=== PATIENT | male | born 1930 | race Caucasian/White ===

== ENCOUNTER 2016-12-22 03:42 | Emergency (ER) ==
[2016-12-22] MEDS ORDERED: DECADRON 4 MG/ML SDV IM STA (03:51)
[2016-12-22] MEDS ORDERED: TORADOL IM STA (03:51)
--- NOTE | 2016-12-22 03:54 | ED.PDOC ---
General ED Provider: Dr. DARIO GLASGOW Chief Complaint: Extremity Swelling/Pain Stated Complaint: Woke up with left 2,3 rd toe pain and swelling warm to touch. Time Seen by Physician: 03:52 Primary Care Provider: OKSANA HWANG Nursing and Triage Documentation Reviewed and Agree: Yes Musculoskeletal Complaint Exam - Ankle/Foot Complaint/Exam Location of Injury: Reports: Left, Foot, Toe #1, Toe #2 Mechanism of Injury: Reports: No known trauma Symptoms Are: Reports: Still present Onset of Pain: Reports: Hours Initial Severity: Moderate Current Severity: Moderate Location: Reports: Discrete Character: Reports: Aching, Throbbing Alleviating: Reports: None Aggravating: Reports: Movement, Weight bearing Associated Signs and Symptoms: Reports: Swelling, Redness. Denies: Bruising, Fever, Weakness, Numbness, Tingling Gout Risk Factors: Reports: Male, HTN, Hyperlipidemia Related Surgical History: Reports: None Lower Extremity Findings: Present: Swelling, Warmth, Tenderness Tenderness: Present: Metatarsals, Digits Differential Diagnosis: Closed Fracture, Gout Review of Systems - Review Of Systems Constitutional: Reports: No symptoms Eyes: Reports: No symptoms Ears, Nose, Mouth, Throat: Reports: No symptoms Respiratory: Reports: No symptoms Cardiac: Reports: No symptoms GI: Reports: No symptoms : Reports: No symptoms Musculoskeletal: Reports: Gout, Joint pain, Joint swelling Skin: Reports: No symptoms Neurological: Reports: No symptoms Endocrine: Reports: No symptoms Hematologic/Lymphatic: Reports: No symptoms All Other Systems: Reviewed and Negative Past Medical History - Past Medical History Previously Healthy: Yes Endocrine: Reports: DM 2 Cardiovascular: Reports: None Respiratory: Reports: None Hematological: Reports: None Gastrointestinal: Reports: None Genitourinary: Reports: None Neuro/Psych: Reports: None Musculoskeletal: Reports: None Cancer: Reports: None - Surgical History General Surgical History: Reports: Unknown - Family History Family History: Reports: Unknown - Social History Smoking Status: Former smoker Hx Substance Use: No Alcohol Screening: None Physical Exam - Physical Exam Appearance: Well-appearing, No pain distress, Well-nourished Eyes: ELIOT, EOMI, Conjunctiva clear ENT: Ears normal, Nose normal, Oropharynx normal Respiratory: Airway patent, Breath sounds clear, Breath sounds equal, Respirations nonlabored Cardiovascular: RRR, Pulses normal, No rub, No murmur GI/: Soft, Nontender, No masses, Bowel sounds normal, No Organomegaly Musculoskeletal: Normal strength, ROM intact, No calf tenderness, Edema (left 2, 3 toe, war, swollen.) Skin: Warm, Dry, Normal color Neurological: Sensation intact, Motor intact, Reflexes intact, Cranial nerves intact, Alert, Oriented Psychiatric: Affect appropriate, Mood appropriate Interpretation - Radiology Interpretation Radiology Interpretation By: Radiologist Radiology Results: Negative Critical Care Note - Critical Care Note Total Time (mins): 0 Course - Course Hematology/Chemistry: 12/22/16 04:25 12/22/16 04:25 Orders, Labs, Meds: Lab Review 12/22/16 04:25 WBC 5.66 RBC 4.12 L Hgb 11.8 L Hct 36.2 L MCV 87.9 MCH 28.6 MCHC 32.6 RDW Coeff of Michael 13.5 Plt Count 239 Immature Gran % (Auto) 0.2 Neut % (Auto) 60.8 Lymph % (Auto) 22.1 [place] % (Auto) 9.9 Eos % (Auto) 6.5 Baso % (Auto) 0.5 Immature Gran # (Auto) 0.0 Neut # 3.4 Lymph # 1.3 [place] # 0.6 Eos # 0.4 Baso # 0.0 Sodium 138 Potassium 4.7 Chloride 103 Carbon Dioxide 27 Anion Gap 12.7 BUN 29 H Creatinine 1.69 H Estimated GFR (MDRD) 39.00 BUN/Creatinine Ratio 17.15 Glucose 187 H Uric Acid 8.7 H Calcium 9.5 Total Bilirubin 0.54 AST 19 ALT 9 L Alkaline Phosphatase 80 Total Protein 6.5 Albumin 3.5 Globulin 3.0 Albumin/Globulin Ratio 1.17 Orders Category Date Time Status CBC W/ AUTO DIFF Stat LAB 12/22/16 04:25 Completed COMPREHENSIVE METABOLIC PANEL Stat LAB 12/22/16 04:25 Completed URIC ACID Stat LAB 12/22/16 04:25 Completed Colchicine [Colcrys] MEDS 12/22/16 03:56 Discontinued 1.2 mg PO ONCE STA Dexamethasone 4 mg/ml Inj [Decadron 4 mg/ml Sdv] MEDS 12/22/16 03:51 Discontinued 4 mg IM ONCE STA Ketorolac Tromethamine [Toradol] MEDS 12/22/16 03:51 Discontinued 60 mg IM ONCE STA FOOT, LEFT 3 VIEWS Stat RADS 12/22/16 03:51 Completed Medications Discontinued Medications Generic Name Dose Route Start Last Admin Trade Name Angelica PRN Reason Stop Dose Admin Colchicine 1.2 mg 12/22/16 03:56 12/22/16 04:29 Colcrys PO 12/22/16 03:57 1.2 mg ONCE STA Administration Dexamethasone Sodium Phosphate 4 mg 12/22/16 03:51 12/22/16 04:33 Decadron 4 Mg/Ml Sdv IM 12/22/16 03:52 4 mg ONCE STA Administration Ketorolac Tromethamine 60 mg 12/22/16 03:51 12/22/16 04:33 Toradol IM 12/22/16 03:52 60 mg ONCE STA Administration Vital Signs: Temp Pulse Resp BP Pulse Ox 12/22/16 03:43 98.6 F 78 18 172/70 H 98 Departure - Departure Time of Disposition: 05:51 Disposition: HOME SELF-CARE Discharge Problem: Gout attack Qualifiers: Gout site: foot Gout etiology: unspecified cause Laterality: left Qualifier Code: (M10.9) Gout, unspecified Instructions: Gout (ED) Condition: Stable Pt referred to PMD for follow-up: Yes Additional Instructions: rest hot pack' Prescriptions: Colchicine [Colcrys] 0.6 mg PO DAILY #20 tablet Prednisone 10 mg PO BIDWM #14 tablet Allergies/Adverse Reactions: Allergies clindamycin HCl [From Cleocin] Adverse Reaction (Intermediate, Verified 03:56) Home Medications: Ambulatory Orders Calcium Carbonate/Vitamin D3 [Calcium 600 + Vit D Tablet] 1 each PO BID Cyanocobalamin (Vitamin B-12) [Vitamin B-12] 1,000 mcg IM MONTHLY 03/30/13 Furosemide [Lasix] 40 mg PO DAILY 03/30/13 Insulin Glargine,Hum.rec.anlog [Lantus] 14 unit SQ BEDTIME 03/30/13 Levothyroxine Sodium [Synthroid] 200 mcg PO DAILY 03/30/13 Lisinopril [Zestril] 40 mg PO DAILY 03/30/13 Colchicine [Colcrys] 0.6 mg PO DAILY #20 tablet 12/22/16 Diphenhydramine HCl [Benadryl] 50 mg PO Q6H PRN 12/22/16 Gabapentin 200 mg PO DAILY 03/22/17 Gabapentin 300 mg PO BEDTIME 12/22/16 Hydroxyzine HCl [Atarax] 25 mg PO BID PRN 12/22/16 Insulin Glargine,Hum.rec.anlog [Lantus] 14 unit SUBCUT BEDTIME 12/22/16 Insulin Regular, Human [Humulin R] 1 unit SQ DIRECTED PRN 12/22/16 Oxycodone-Acetaminophe 7.5-325 [Percocet 7.5-325] 1 tab PO Q8H PRN 12/22/16 Prednisone 10 mg PO BIDWM #14 tablet 12/22/16 Zolpidem Tartrate [Ambien] 5 mg PO BEDTIME PRN 12/22/16 Disposition Discussed With: Patient
[2016-12-22 03:56] VITALS: BP 172/70; TEMP 98.6; BMI 23.8
[2016-12-22] MEDS ORDERED: COLCRYS PO STA (03:56)
[2016-12-22 04:26] LABS: BASOPHILS % (AUTO) 0.5 % (0.0-3.0); EOSINOPHILS # (AUTO) 0.4 K/ul (0.0-0.7); EOSINOPHILS % (AUTO) 6.5 % (0.0-7.0); HEMATOCRIT 36.2 % (42.0-52.0); HEMOGLOBIN 11.8 g/dl (14.0-18.0); IMMATURE GRANULOCYTE % (AUTO) 0.2 % (0.0-5.0); LYMPHOCYTES # (AUTO) 1.3 K/uL (0.60-3.4); LYMPHOCYTES % (AUTO) 22.1 (10.0-50.0); MEAN CORPUSCULAR HEMOGLOBIN 28.6 pg (27.0-31.0); MEAN CORPUSCULAR HGB CONC 32.6 (31.8-35.4); MEAN CORPUSCULAR VOLUME 87.9 fl (80.0-94.0); MONOCYTES # (AUTO) 0.6 K/uL (0.4-2.0); MONOCYTES % (AUTO) 9.9 (0-10); NEUTROPHILS # (AUTO) 3.4 K/ul (2.0-6.9); NEUTROPHILS % (AUTO) 60.8; PLATELET COUNT 239 10^3/uL (140-440); RED BLOOD COUNT 4.12 10^6/ul (4.70-6.10); WHITE BLOOD COUNT 5.66 K/ul (4.2-10.2)
--- NOTE | 2016-12-22 04:37 | DI ---
Exam: Left foot three-view History: Second and third digit pain and swelling Findings / impression: No acute bony or articular abnormalities are seen. Mild interphalangeal oste oarthritic change. Mild spurring on the plantar surface of the calcaneus. Atherosclerotic vascular calcifications are present.
[2016-12-22 04:46] LABS: ALBUMIN 3.5 g/dL (3.4-5.0); ALBUMIN/GLOBULIN RATIO 1.17; ANION GAP 12.7; BILIRUBIN,TOTAL 0.54 mg/dL (0.00-1.20); BUN/CREATININE RATIO 17.15; CALCIUM 9.5 mg/dL (8.2-10.2); CREATININE 1.69 mg/dL (0.60-1.10); POTASSIUM 4.7 mmol/L (3.5-5.1); TOTAL PROTEIN 6.5 g/dL (5.8-8.1); URIC ACID 8.7 mg/dL (2.6-7.2)
== END 2016-12-22 05:55 | disposition home or self-care (01) ==
LOC: ED 03:42
DX: M10.9 Gout, unspecified (principal); I10 Essential (primary) hypertension; E78.5 Hyperlipidemia, unspecified; E11.9 Type 2 diabetes mellitus without complications; Z79.899 Other long term (current) drug therapy
CPT/HCPCS: 36415; 80053; 84550; 85025; 96372; 99283

== ENCOUNTER 2017-09-11 02:00 | Emergency (ER) ==
[2017-09-11 02:04] VITALS: BMI 23.0
[2017-09-11 02:37] LABS: BASOPHILS % (AUTO) 0.7 % (0.0-3.0); EOSINOPHILS # (AUTO) 0.1 K/ul (0.0-0.7); HEMATOCRIT 34.3 % (42.0-52.0); HEMOGLOBIN 11.4 g/dl (14.0-18.0); IMMATURE GRANULOCYTE % (AUTO) 0.3 % (0.0-5.0); LYMPHOCYTES # (AUTO) 0.8 K/uL (0.60-3.4); LYMPHOCYTES % (AUTO) 12.5 (10.0-50.0); MEAN CORPUSCULAR HEMOGLOBIN 29.3 pg (27.0-31.0); MEAN CORPUSCULAR HGB CONC 33.2 (31.8-35.4); MEAN CORPUSCULAR VOLUME 88.2 fl (80.0-94.0); MONOCYTES # (AUTO) 0.4 K/uL (0.4-2.0); MONOCYTES % (AUTO) 6.7 (0-10); NEUTROPHILS # (AUTO) 4.8 K/ul (2.0-6.9); NEUTROPHILS % (AUTO) 78.8; PLATELET COUNT 248 10^3/uL (140-440); RED BLOOD COUNT 3.89 10^6/ul (4.70-6.10); WHITE BLOOD COUNT 6.08 K/ul (4.2-10.2)
[2017-09-11 02:44] VITALS: BP 141/76; TEMP 97.3
[2017-09-11 02:51] LABS: BILIRUBIN,URINE Negative (NEGATIVE); KETONES,URINE Trace (NEGATIVE); LEUKOCYTE ESTERASE ,URINE Negative (NEGATIVE); NITRITE,URINE Negative (NEGATIVE); PROTEIN,URINE Negative (NEGATIVE); URINE, BLOOD Negative (NEGATIVE)
[2017-09-11 02:58] LABS: ADD URINE MICROSCOPIC NO
--- NOTE | 2017-09-11 03:31 | DI ---
EXAM: Portable chest HISTORY: Change mental status COMPARISON: Two-view chest 03/22/2012 FINDINGS: Postoperative fusion changes are seen within the lower cervical spine. The cardiomediasti nal silhouette is stable.. There are benign granulomatous changes. There is stable elevation of the right hemidiaphragm.. There is a tubular structure overlying the right lower hemithorax. Correlate with history. There is moderate sized hiatal hernia IMPRESSION: Benign granulomatous changes. Stable elevation right hemidiaphragm.. Hiatal hernia.
--- NOTE | 2017-09-11 03:35 | CT ---
EXAM: CT scan brain without contrast HISTORY: Confusion COMPARISON: CT scan brain 08/13/2015 FINDINGS: Contiguous axial images obtained from the skull base to the convexities without contrast u tilizing 5-mm collimation. Sagittal and coronal reconstructions were imaged and reviewed.. The vent ricles and CSF spaces are prominent compatible with age appropriate atrophy. There is moderate periv entricular hypodensity noted compatible with chronic microvascular disease. Atherosclerotic changes are seen involving the bilateral vertebral and cavernous internal carotid arteries. Several air cell s are opacified anteriorly within the ethmoid sinuses. The mastoid air cells are clear. IMPRESSION: Age appropriate atrophy with chronic microvascular disease. ASVD.
[2017-09-11 03:38] LABS: ALBUMIN 3.5 g/dL (3.4-5.0); ALBUMIN/GLOBULIN RATIO 1.13; ANION GAP 16.5; BILIRUBIN,TOTAL 0.35 mg/dL (0.00-1.20); BUN/CREATININE RATIO 16.47; CALCIUM 9.5 mg/dL (8.2-10.2); CREATININE 1.7 mg/dL (0.60-1.10); POTASSIUM 4.5 mmol/L (3.5-5.1); TOTAL PROTEIN 6.6 g/dL (5.8-8.1)
[2017-09-11 03:46] LABS: ERYTHROCYTE SEDIMENTATION RATE 13 mm/hr (0-15); ESR INTERNAL QC INTERNAL QC VALID
[2017-09-11 04:00] LABS: TROPONIN I 0.022 ng/ml (0.0000-0.4000)
[2017-09-11 04:26] LABS: CREATINE KINASE MB 2.6 ng/ml (0.0-3.6)
--- NOTE | 2017-09-11 04:30 | ED.PDOC ---
General ED Provider: Dr. JEFF ROWE-ER Chief Complaint: Hypoglycemia Stated Complaint: his bs dropped to 64--he got confused and sweaty Time Seen by Physician: 02:05 Mode of Arrival: Walk-In Information Source: Patient, Family Exam Limitations: No limitations Primary Care Provider: OKSANA HWANG Nursing and Triage Documentation Reviewed and Agree: Yes Endocrine Complaint Exam - Diabetic Complication Complaint/Exam Onset/Duration: 30 min Symptoms Are: Still present Timing: Constant Initial Severity: Mild Current Severity: Moderate Character: Alert, Confused, Lethargic Aggravating: Reports: Medication change, Change in activity level Alleviating: Reports: None Associated Signs and Symptoms: Reports: Diaphoresis. Denies: Decreased LOC, Polydipsia, Polyuria, Polyphagia, Weight loss, Abdominal pain, Nausea, Vomiting , Fever, Fruity breath Related History: Reports: DM 2, Insulin requiring Cardiac Risk Factors: Reports: DM CVA Risk Factors: Reports: DM Serious Bacterial Infection Risk Factors: Reports: None Acetone on Breath: No Dry Mucous Membranes: No Kussmaul Respirations: No Meningeal Signs: Yes Focal Weakness: None Focal Sensory Loss: None Gait: Normal Nystagmus Present: No Gag Reflex Present: Yes Finger to Nose: Normal Romberg Test Positive: No Babinski Sign: Negative Right, Negative Left Heel to Toe Normal: Yes Differential Diagnoses: Hypoglycemia Quality Indicator For Non-Traumatic Chest Pain/Syncope: EKG Performed Review of Systems - Review Of Systems Constitutional: Reports: Diaphoresis Eyes: Reports: No symptoms Ears, Nose, Mouth, Throat: Reports: No symptoms Respiratory: Reports: No symptoms Cardiac: Reports: No symptoms GI: Reports: No symptoms : Reports: No symptoms Musculoskeletal: Reports: No symptoms Skin: Reports: No symptoms Neurological: Reports: No symptoms Endocrine: Reports: No symptoms Hematologic/Lymphatic: Reports: No symptoms All Other Systems: Reviewed and Negative Past Medical History - Past Medical History Previously Healthy: Yes Endocrine: Reports: DM 2 Cardiovascular: Reports: None Respiratory: Reports: None Hematological: Reports: None Gastrointestinal: Reports: None Genitourinary: Reports: None Neuro/Psych: Reports: None Musculoskeletal: Reports: None Cancer: Reports: None - Surgical History General Surgical History: Reports: Unknown - Family History Family History: Reports: Unknown - Social History Smoking Status: Former smoker Hx Substance Use: No Alcohol Screening: None Lives: With family - Immunizations Tetanus Shot up to Date: Yes Physical Exam - Physical Exam Appearance: Well-appearing, No pain distress, Well-nourished Eyes: ELIOT ENT: Ears normal, Nose normal, Oropharynx normal Neck: Supple Respiratory: Airway patent, Breath sounds clear, Breath sounds equal, Respirations nonlabored Cardiovascular: RRR GI/: Soft, Nontender, No masses, Bowel sounds normal, No Organomegaly Musculoskeletal: Normal strength, ROM intact, No edema, No calf tenderness Skin: Warm, Dry, Normal color Neurological: Sensation intact, Motor intact, Reflexes intact, Cranial nerves intact, Alert, Oriented Psychiatric: Affect appropriate, Mood appropriate Interpretation - Radiology Interpretation Radiology Interpretation By: Radiologist Radiology Results: Negative Exam Interpreted: CT Scan - EKG Interpretation Time of EKG #1: 04:30 Rate: Normal Rhythm: Sinus Ectopy: None [place]: NL ST Segment: Normal Re-Evaluation - Re-Evaluation Time of Re-Evaluation: 04:30 Status: Improved Vital Signs Stable: Yes Pain Level: 0 Appearance: NAD Lungs: Clear Skin: Warm and Dry Neuro: Alert and Oriented X3 CV: RRR Critical Care Note - Critical Care Note Total Time (mins): 0 Course - Course Hematology/Chemistry: 09/11/17 02:30 09/11/17 02:30 Orders, Labs, Meds: Lab Review 09/11/17 09/11/17 09/11/17 02:30 02:30 02:30 WBC 6.08 RBC 3.89 L Hgb 11.4 L Hct 34.3 L MCV 88.2 MCH 29.3 MCHC 33.2 RDW Coeff of Michael 14.0 Plt Count 248 Immature Gran % (Auto) 0.3 Neut % (Auto) 78.8 Lymph % (Auto) 12.5 [place] % (Auto) 6.7 Eos % (Auto) 1.0 Baso % (Auto) 0.7 Immature Gran # (Auto) 0.0 Neut # 4.8 Lymph # 0.8 [place] # 0.4 Eos # 0.1 Baso # 0.0 ESR 13 Sodium 138 Potassium 4.5 Chloride 101 Carbon Dioxide 25 Anion Gap 16.5 BUN 28 H Creatinine 1.70 H Estimated GFR (MDRD) 38.00 BUN/Creatinine Ratio 16.47 Glucose 187 H Calcium 9.5 Total Bilirubin 0.35 AST 24 ALT 15 Alkaline Phosphatase 72 Total Creatine Kinase 124 CK-MB (CK-2) 2.6 CK-MB (CK-2) % 2.63417 Troponin I 0.0220 Total Protein 6.6 Albumin 3.5 Globulin 3.1 Albumin/Globulin Ratio 1.13 TSH 1.520 Free T4 1.34 H Urine Color Urine Clarity Urine pH Ur Specific [place] Urine Protein Urine Glucose (UA) Urine Ketones Urine Blood Urine Nitrite Urine Bilirubin Urine Urobilinogen Ur Leukocyte Esterase 09/11/17 02:37 WBC RBC Hgb Hct MCV MCH MCHC RDW Coeff of Michael Plt Count Immature Gran % (Auto) Neut % (Auto) Lymph % (Auto) [place] % (Auto) Eos % (Auto) Baso % (Auto) Immature Gran # (Auto) Neut # Lymph # [place] # Eos # Baso # ESR Sodium Potassium Chloride Carbon Dioxide Anion Gap BUN Creatinine Estimated GFR (MDRD) BUN/Creatinine Ratio Glucose Calcium Total Bilirubin AST ALT Alkaline Phosphatase Total Creatine Kinase CK-MB (CK-2) CK-MB (CK-2) % Troponin I Total Protein Albumin Globulin Albumin/Globulin Ratio TSH Free T4 Urine Color Yellow Urine Clarity Clear Urine pH 6.0 Ur Specific [place] 1.015 Urine Protein Negative Urine Glucose (UA) Negative Urine Ketones Trace Urine Blood Negative Urine Nitrite Negative Urine Bilirubin Negative Urine Urobilinogen 0.2 Ur Leukocyte Esterase Negative Orders Category Date Time Status EKG-(ED ONLY) Stat CARDIO 09/11/17 02:18 Ordered Trenching Machine Operator [ED RN EMERGENCY ROOM APPLIED] .ONCE EMERGENCY 09/11/17 02:20 Active CBC W/ AUTO DIFF Stat LAB 09/11/17 02:30 Completed COMPREHENSIVE METABOLIC PANEL Stat LAB 09/11/17 02:30 Completed CREATINE KINASE Stat LAB 09/11/17 02:30 Completed ESR Stat LAB 09/11/17 02:30 Completed FREE T4 (FREE THYROXINE) Stat LAB 09/11/17 02:30 Completed THYROID STIMULATING HORMONE Stat LAB 09/11/17 02:30 Completed TROPONIN I Stat LAB 09/11/17 02:30 Completed URINALYSIS C & S IF INDICATED Stat LAB 09/11/17 02:[address] HEAD W/O CONTRAST Stat RADS 09/11/17 02:19 Completed CXR [CHEST, 1V AP ONLY] Stat RADS 09/11/17 02:19 Completed Vital Signs: Temp Pulse Resp BP Pulse Ox 09/11/17 02:43 97.3 F L 82 20 141/76 H 97 09/11/17 02:00 97.1 F L 79 13 178/98 H 98 Departure - Departure Time of Disposition: 04:30 Disposition: HOME SELF-CARE Discharge Problem: Hypoglycemia Instructions: Hypoglycemia in a Person with Diabetes (ED) Condition: Good Pt referred to PMD for follow-up: Yes Additional Instructions: f/u with your pcp regarding tx of dm Allergies/Adverse Reactions: Allergies clindamycin HCl [From Cleocin] Adverse Reaction (Intermediate, Verified 03:56) Home Medications: Ambulatory Orders Calcium Carbonate/Vitamin D3 [Calcium 600 + Vit D Tablet] 1 each PO BID Cyanocobalamin (Vitamin B-12) [Vitamin B-12] 1,000 mcg IM MONTHLY 03/30/13 Furosemide [Lasix] 40 mg PO DAILY 03/30/13 Insulin Glargine,Hum.rec.anlog [Lantus] 14 unit SQ BEDTIME 03/30/13 Levothyroxine Sodium [Synthroid] 200 mcg PO DAILY 03/30/13 Lisinopril [Zestril] 40 mg PO DAILY 03/30/13 Colchicine [Colcrys] 0.6 mg PO DAILY #20 tablet 12/22/16 Diphenhydramine HCl [Benadryl] 50 mg PO Q6H PRN 12/22/16 Gabapentin 200 mg PO DAILY 12/22/16 Gabapentin 300 mg PO BEDTIME 12/22/16 Hydroxyzine HCl [Atarax] 25 mg PO BID PRN 12/22/16 Oxycodone-Acetaminophe 7.5-325 [Percocet 7.5-325] 1 tab PO Q8H PRN 12/22/16 Prednisone 10 mg PO BIDWM #14 tablet 12/22/16 Zolpidem Tartrate [Ambien] 5 mg PO BEDTIME PRN 12/22/16 Disposition Discussed With: Patient, Family
== END 2017-09-11 04:35 | disposition home or self-care (01) ==
LOC: ED 02:00
DX: E11.649 Type 2 diabetes mellitus with hypoglycemia without coma (principal); Z79.4 Long term (current) use of insulin; R41.0 Disorientation, unspecified; R61 Generalized hyperhidrosis; Z79.899 Other long term (current) drug therapy
CPT/HCPCS: 36415; 80053; 81001; 82550; 82553; 84439; 84443; 84484; 85025; 85651; 93005; 93010; 99284

== ENCOUNTER 2018-04-25 06:34 | Outpatient (CLI) ==
[2013-03-30 08:55] VITALS: TEMP 98
--- NOTE | 2018-04-25 10:05 | US ---
EXAM: Carotid ultrasound HISTORY: Dizziness COMPARISON: None TECHNIQUE: Carotid ultrasound was performed using small scale, color, and Doppler imaging was perform ed. FINDINGS: Right carotid: There is atherosclerotic plaque in the common carotid and bulb/proximal internal gore tid artery with narrowing visually estimated to be moderate (50 - 69%) Peak systolic velocity measu rement in the right internal carotid artery is 0.9 meters per second. End-diastolic velocity measure ment in the right internal carotid artery is 0.2 meters per second. Right internal to common carotid artery peak systolic velocity ratio is 1.2. Flow in the right vertebral artery is antegrade. Left carotid: There is atherosclerotic plaque in the common carotid and bulb/proximal internal carot id artery. Peak systolic velocity measurement in the left internal carotid artery is 0.8 meters per second. End-diastolic velocity measurement in the left internal carotid artery is 0.1 meters per sec ond. Left internal to common carotid artery peak systolic velocity ratio measures 1.0. Flow in the left vertebral artery is antegrade. IMPRESSION: 1. Right internal carotid: Peak systolic velocity corresponds with mild (less than 50%) stenosis; how ever, the visual estimate of narrowing is estimated to be moderate (50 - 69%). 2. Left internal carotid: Peak systolic velocity corresponds with mild (less than 50%) stenosis.
--- NOTE | 2018-04-25 10:09 | ECHO2D ---
Date of Exam: 04/25/18 Ordering Physician: DR. WESLEY ABAD Room #: OP Reason for Echo: DIZZINESS, SOB M-Mode Normal Adult Results LV Dimensions Normal Adult Results AoV Opening excursions >1.6 >1.6 LVEDD-base- 3.5-5.8 4.9 Ao root dimensions 2.0-3.7 4.2 LVESD-base- 3.1-4.6 L. Atrium dimensions 1.9-3.8 4.3 Post. Wall thickness 0.8-1.1 1.3 IV septum (thickness) 0.7-1.2 1.3 Post. Wall excursion 0.72-1.3 Septal motion NORMAL Systolic motion R. 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 LEFT VENTRICULAR HYPERTROPHY WITH ENLARGED LEFT ATRIAL CAVITY 2. NORMAL LEFT VENTRICLE CONTRACTILITY 3. CALCIFIC MITRAL VALVE ANNULUS 4. NORMAL VALVES 5. 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
== END 2018-04-25 06:35 | disposition home or self-care (01) ==
LOC: CAR 06:34
PROVIDERS: ATTEND Internal Medicine
DX: R06.02 Shortness of breath (principal); R42 Dizziness and giddiness
CPT/HCPCS: 93005; 93010

== ENCOUNTER 2018-08-14 18:42 | Inpatient (IN) | payer OTHER ==
--- NOTE | 2018-08-14 19:05 | ED.PDOC ---
General ED Provider: Dr. CHANTEL KEITA Chief Complaint: Altered Mental Status Stated Complaint: Patient is an 87 year old male who is brought by daughter with hypoglycemia at home. She noticed that he was confused and diaphoretic and fed him some carbohydrate which did not improve his symptoms fast enough so brought him to the ER. His mind is back to base line since being in the ER. He is hard of hearing but able relay his history. Daughter thinks he was active more than usual today but has also been eating less for several weeks. Time Seen by Physician: 19:03 Mode of Arrival: Walk-In Information Source: Patient Exam Limitations: No limitations Primary Care Provider: OKSANA HWANG Nursing and Triage Documentation Reviewed and Agree: Yes Does patient meet sepsis criteria?: No System Inflammatory Response Syndrome: Not Applicable Sepsis Protocol: For patient's 13 years and over: Temp is 96.8 and below OR 101 and greater Pulse >90 BPM Resp >20/minute Acutely Altered Mental Status Are patient's symptoms suggestive of a new infection, such as: -Pneumonia -Skin, Soft Tissue -Endocarditis -UTI -Bone, Joint Infection -Implantable Device -Acute Abdominal Infection -Wound Infection -Meningitis -Blood Stream Catheter Infection -Unknown Endocrine Complaint Exam - Diabetic Complication Complaint/Exam Onset/Duration: 2 hours Symptoms Are: Still present (but better) Timing: Constant Initial Severity: Moderate Current Severity: Mild Character: Confused Aggravating: Reports: Diet change (decreased intake over weeks ), Change in activity level Alleviating: Reports: Food Associated Signs and Symptoms: Reports: Decreased LOC, Diaphoresis. Denies: Polydipsia, Polyuria, Polyphagia, Weight loss, Abdominal pain, Nausea, Vomiting , Fever, Fruity breath Related History: Reports: DM 2, Insulin requiring Cardiac Risk Factors: Reports: DM CVA Risk Factors: Reports: DM Serious Bacterial Infection Risk Factors: Reports: None Related Surgical History: Reports: None Acetone on Breath: No Dry Mucous Membranes: No Kussmaul Respirations: No Glascow Coma Scale (see protocol): 15 Meningeal Signs: No Focal Weakness: None Focal Sensory Loss: None Gait: Normal Nystagmus Present: No Gag Reflex Present: No Finger to Nose: Normal Romberg Test Positive: No Babinski Sign: Negative Right, Negative Left Heel to Toe Normal: No Differential Diagnoses: Hypoglycemia Quality Indicator For Non-Traumatic Chest Pain/Syncope: EKG Performed Review of Systems - Review Of Systems Constitutional: Reports: No symptoms Eyes: Reports: No symptoms Ears, Nose, Mouth, Throat: Reports: No symptoms Respiratory: Reports: No symptoms Cardiac: Reports: No symptoms GI: Reports: No symptoms : Reports: No symptoms Musculoskeletal: Reports: No symptoms Skin: Reports: No symptoms Neurological: Reports: Anxiety, Other (mild confusion ) Endocrine: Reports: Excessive sweating Hematologic/Lymphatic: Reports: No symptoms All Other Systems: Reviewed and Negative Past Medical History - Past Medical History Previously Healthy: Yes Endocrine: Reports: DM 2, Hypothyroid Cardiovascular: Reports: None Respiratory: Reports: None Hematological: Reports: None Gastrointestinal: Reports: None Genitourinary: Reports: None Neuro/Psych: Reports: None Musculoskeletal: Reports: None Cancer: Reports: None - Surgical History General Surgical History: Reports: Cholecystectomy, Back Surgery (CERVICAL SPINE SURGERY X2) - Family History Family History: Reports: Unknown - Social History Smoking Status: Former smoker Hx Substance Use: No Alcohol Screening: None Physical Exam - Physical Exam Appearance: Well-appearing, No pain distress, Well-nourished Eyes: ELIOT, EOMI, Conjunctiva clear ENT: Ears normal, Nose normal, Oropharynx normal Respiratory: Airway patent, Breath sounds clear, Breath sounds equal, Respirations nonlabored Cardiovascular: RRR, Pulses normal, No rub, No murmur GI/: Soft, Nontender, No masses, Bowel sounds normal, No Organomegaly Musculoskeletal: Normal strength, ROM intact, No edema, No calf tenderness Skin: Warm, Dry, Normal color Neurological: Sensation intact, Motor intact, Reflexes intact, Cranial nerves intact, Alert, Oriented Psychiatric: Affect appropriate, Mood appropriate Interpretation - Radiology Interpretation Radiology Interpretation By: Radiologist Radiology Results: No acute changes Exam Interpreted: CT Scan - EKG Interpretation Rate: Normal Rhythm: Sinus Ectopy: PACs Re-Evaluation - Re-Evaluation Time of Re-Evaluation: 20:40 Status: Improved (blood glucose improved ) Physician Notification - Case Discussed Physician Notified: Dr Jeffers Time of Notification: 20:15 (Admit to telemetry ) Critical Care Note - Critical Care Note Total Time (mins): 35 Comments: Lengthy discussion reviled that he uses a formula of Blood glucose minus 100, Divided by 20 Plus 6 units of regular. So a blood glucose of 150 would result in ((150-100)/20 ) + 6 = 8 units. Which is very high with an A1 C of 6 and for his age and would cause hypoglycemia. Advised to use a sliding scale when discharged. An example KING DIRK, INSULIN FORMULA Blood glucose Regular Insulin 0-120 0 Units 121-150 2 Units 151-200 4 Units 201-250 6 Units 251-300 8 Units 301-351 10 Units >351 12 units and call your Doctor Lanwilliam every night Give 5 Units only May check your glucose twice a day after one week of stable blood glucose. will be admitted for Hydration at 75mls per hour. Give Kayaxalate to potassium monitor blood glucose. Course - Course Hematology/Chemistry: 08/14/18 19:11 08/14/18 19:11 Orders, Labs, Meds: Lab Review 08/14/18 08/14/18 08/14/18 19:02 19:02 19:02 WBC RBC Hgb Hct MCV MCH MCHC RDW Coeff of Michael Plt Count Immature Gran % (Auto) Neut % (Auto) Lymph % (Auto) [place] % (Auto) Eos % (Auto) Baso % (Auto) Immature Gran # (Auto) Neut # (Auto) Lymph # (Auto) [place] # (Auto) Eos # (Auto) Baso # (Auto) Sodium Potassium Chloride Carbon Dioxide Anion Gap BUN Creatinine Estimated GFR (MDRD) BUN/Creatinine Ratio Glucose Hemoglobin A1c 6.13 H Calcium Total Bilirubin AST ALT Alkaline Phosphatase Total Creatine Kinase CK-MB (CK-2) CK-MB (CK-2) % Troponin I Total Protein Albumin Globulin Albumin/Globulin Ratio TSH 5.520 H Free T4 1.56 08/14/18 08/14/18 08/14/18 19:11 19:11 19:11 WBC 8.40 RBC 3.83 L Hgb 10.9 L Hct 33.2 L MCV 86.7 MCH 28.5 MCHC 32.8 RDW Coeff of Michael 13.5 Plt Count 286 Immature Gran % (Auto) 0.2 Neut % (Auto) 73.2 Lymph % (Auto) 14.3 [place] % (Auto) 9.8 Eos % (Auto) 2.0 Baso % (Auto) 0.5 Immature Gran # (Auto) 0.0 Neut # (Auto) 6.2 Lymph # (Auto) 1.2 [place] # (Auto) 0.8 Eos # (Auto) 0.2 Baso # (Auto) 0.0 Sodium 134.9 L Potassium 5.57 H Chloride 96.4 L Carbon Dioxide 32.1 H Anion Gap 11.97 BUN 48.3 H Creatinine 2.54 H Estimated GFR (MDRD) 24.00 BUN/Creatinine Ratio 19.01 Glucose 106.8 H Hemoglobin A1c Calcium 9.50 Total Bilirubin 0.31 AST 35.1 ALT 16.8 Alkaline Phosphatase 76.8 Total Creatine Kinase 172.8 H CK-MB (CK-2) 3.570 H CK-MB (CK-2) % 2.0600 Troponin I 0.078 Total Protein 7.13 Albumin 4.09 Globulin 3.04 Albumin/Globulin Ratio 1.34 TSH Free T4 Orders Category Date Time Status EKG-(ED ONLY) Stat CARDIO 08/14/18 19:10 Completed ACCUCHECK (ED) [ED ACCUCHECK ASSESSMENT] .ONCE EMERGENCY 08/14/18 19:02 Active CBC W/ AUTO DIFF Stat LAB 08/14/18 19:11 Completed COMPREHENSIVE METABOLIC PANEL Stat LAB 08/14/18 19:11 Completed CREATINE KINASE Stat LAB 08/14/18 19:11 Completed FREE T4 (FREE THYROXINE) Stat LAB 08/14/18 19:02 Completed HEMOGLOBIN A1C Stat LAB 08/14/18 19:02 Completed THYROID STIMULATING HORMONE Stat LAB 08/14/18 19:02 Completed TROPONIN I Stat LAB 08/14/18 19:11 Completed UA [URINALYSIS C & S IF INDICATED] Stat LAB 08/14/18 19:[address] HEAD W/O CONTRAST Stat RADS 08/14/18 19:10 Completed Medications Generic Name Dose Route Start Last Admin Trade Name Freq PRN Reason Stop Dose Admin Acetaminophen 650 mg 08/14/18 20:39 Tylenol PO Q4H PRN Fever > 102 Cyanocobalamin 1,000 mcg 08/14/18 21:00 Vitamin B-12 IM MONTHLY SHIN Enoxaparin Sodium 30 mg 08/15/18 09:00 Lovenox SUBCUT DAILY SHIN Gabapentin 500 mg 08/14/18 21:00 Neurontin PO BEDTIME SHIN Gabapentin 200 mg 08/15/18 09:00 Neurontin PO DAILY SHIN Sodium Chloride 1,000 mls @ 75 mls/hr 08/14/18 20:32 Sodium Chloride IV 08/15/18 09:51 BOLUS STA Sodium Chloride 1,000 mls @ 75 mls/hr 08/14/18 21:00 Sodium Chloride IV .[id number] SIHN Insulin Glargine 5 unit 08/14/18 21:00 Lantus SUBCUT BEDTIME SHIN Insulin Human Regular 0 - 15 unit 08/14/18 20:39 Humulin R SUBCUT PRN PRN Hyperglycemica Protocol Non-Formulary Medication 1 each 08/14/18 21:00 Calcium Carbonate/Vitamin D3 [Calcium 600 + Vit D Tablet] PO BID SHIN Non-Formulary Medication 200 mcg 08/15/18 09:00 Levothyroxine Sodium [Synthroid] PO DAILY SHIN Ondansetron HCl 4 mg 08/14/18 20:39 Zofran 4 Mg/2 Ml IVP Q6H PRN Nausea / Vomiting Oxycodone/Acetaminophen 1 tab 08/14/18 20:38 Percocet 7.5-325 PO Q8H PRN severe pain Sodium Chloride 1 syr 08/14/18 20:32 Saline Flush IVF PRN PRN To flush IV Discontinued Medications Generic Name Dose Route Start Last Admin Trade Name Freq PRN Reason Stop Dose Admin Sodium Polystyrene Sulfonate 25 gm 08/14/18 20:29 Kayexalate Susp PO 08/14/18 20:30 ONCE STA Vital Signs: Temp Pulse Resp BP Pulse Ox 08/14/18 18:43 96.3 F L 75 20 161/86 H 97 Departure - Departure Time of Disposition: 20:45 Disposition: HOME SELF-CARE Discharge Problem: Hypoglycemia, Dehydration, Hyperkalemia Acute renal failure (ARF) Qualifiers: Acute renal failure type: unspecified Qualified Code(s): N17.9 - Acute kidney failure, unspecified Condition: Stable Pt referred to PMD for follow-up: Yes IPMP verified?: No Allergies/Adverse Reactions: Allergies clindamycin HCl [From Cleocin] Adverse Reaction (Intermediate, Verified 18:47) Home Medications: Ambulatory Orders Calcium Carbonate/Vitamin D3 [Calcium 600 + Vit D Tablet] 1 each PO BID Cyanocobalamin (Vitamin B-12) [Vitamin B-12] 1,000 mcg IM MONTHLY 03/30/13 Furosemide [Lasix] 40 mg PO DAILY 03/30/13 Insulin Glargine,Hum.rec.anlog [Lantus] 10 unit SQ BEDTIME 03/30/13 Levothyroxine Sodium [Synthroid] 200 mcg PO DAILY 03/30/13 Lisinopril [Zestril] 40 mg PO DAILY 03/30/13 Diphenhydramine HCl [Benadryl] 50 mg PO Q6H PRN 12/22/16 Gabapentin 200 mg PO DAILY 12/22/16 Gabapentin 500 mg PO BEDTIME 12/22/16 Oxycodone-Acetaminophe 7.5-325 [Percocet 7.5-325] 1 tab PO Q8H PRN 12/22/16 Insulin Regular, Human [Novolin R] 0 unit IJ DIRECTED 08/14/18 Disposition Discussed With: Patient, Family
--- NOTE | 2018-08-14 19:33 | CT ---
EXAM: CT scan of the head without contrast HISTORY: Mental status change TECHNIQUE: Imaging of the head was performed without contrast. 5 mm thin axial images and coronal a nd sagittal images were provided for interpretation. Comparison 09/11/2017 CT scan of the head. FINDINGS: The lateral ventricles and cortical sulci are prominent from atrophy. The small-white inte rface appears normal. No acute hemorrhages are seen. There is no mass effect. Basal cisterns are p atent. Patchy low density changes are seen within the supratentorial white matter. IMPRESSION: No acute intracranial abnormalities are seen. Stable appearance of cerebral atrophy.
[2018-08-14] MEDS ORDERED: KAYEXALATE SUSP PO STA (20:29)
[2018-08-14] MEDS ORDERED: SODIUM CHLORIDE 1,000 ML IV STA (20:32)
[2018-08-14] MEDS ORDERED: ZOFRAN 4 MG/2 ML IVP PRN (20:39)
[2018-08-14] MEDS ORDERED: TYLENOL PO PRN (20:39)
[2018-08-14] MEDS ORDERED: SODIUM CHLORIDE 1,000 ML IV SCH (21:00)
[2018-08-14] MEDS ORDERED: NON-FORMULARY MEDICATION (Calcium Carbonate/Vitamin D3 [Calcium 600 + Vit D Tablet] 1 EACH PO SCH (21:00)
[2018-08-14] MEDS ORDERED: NEURONTIN PO SCH (21:00)
[2018-08-14] MEDS ORDERED: VITAMIN B-12 IM SCH (21:00)
[2018-08-14 21:42] VITALS: BMI 23.5
[2018-08-14] MEDS ORDERED: NEURONTIN ONE (22:07)
[2018-08-14] MEDS: LANTUS SUBCUT SCH (22:09)
[2018-08-14] MEDS: PERCOCET 7.5-325 PO PRN (22:11)
[2018-08-15] MEDS: HUMULIN R SUBCUT PRN ×2 (06:19→11:06)
[2018-08-15] MEDS: LOVENOX SUBCUT SCH (08:11)
[2018-08-15] MEDS: SYNTHROID PO SCH (08:12)
[2018-08-15] MEDS: NEURONTIN PO SCH (08:12)
[2018-08-15] MEDS: CALCIUM 500 + VIT D 200 MG TABLET PO SCH ×2 (08:12→21:00)
[2018-08-15] MEDS ORDERED: NON-FORMULARY MEDICATION (Levothyroxine Sodium [Synthroid] 200 MCG) PO SCH (09:00)
[2018-08-15] MEDS: ASPIRIN EC PO SCH (09:26)
[2018-08-15] MEDS: COZAAR PO SCH (09:26)
--- NOTE | 2018-08-15 10:07 | PCM.PROG ---
Attending Provider: ATTENDING PROVIDER: Dr. WESLEY ABAD DATE OF SERVICE: 08/15/18 SUBJECTIVE: This 87 year old WHITE/ M was hospitalized 08/14/18 with hypoglycemia, renal failure and hyperkalemia. The patient is a lot better. The patient's daughters are in the room. REVIEW OF SYSTEMS: CONSTITUTIONAL: No night sweats. No fatigue, malaise, lethargy. No fever or chills. HEENT: Eyes: No visual changes. No eye pain. No eye discharge. ENT: No runny nose. No epistaxis. No sinus pain. No odynophagia. No congestion. RESPIRATORY: No cough, no congestion. No hemoptysis. No shortness of breath. CARDIOVASCULAR: No angina symptoms. No CHF symptoms. No atypical chest pain for CAD. No palpitations. No orthopnea.. GASTROINTESTINAL: No abdominal pain. No nausea or vomiting. No diarrhea or constipation. No hematemesis. No hematochezia. GENITOURINARY: No urgency. No frequency. No dysuria. No hematuria. No obstructive symptoms. No discharge. No pain. No significant abnormal bleeding. MUSCULOSKELETAL: No musculoskeletal pain; no joint swelling. NEUROLOGICAL: Awake, alert, oriented to time, place and person. No headache. No neck pain. No syncope. No seizures. No dizziness. PSYCHIATRIC: Not anxious. No depression. No suicidal thoughts. No homicidal thoughts. SKIN: No rash. No lesions. No wounds. ENDOCRINE: No unexplained weight loss. No weight gain. HEMATOLOGIC/LYMPHATIC: No anemia. No purpura. No petechiae. No prolonged or excessive bleeding. No palpable lymph nodes. PHYSICAL EXAMINATION: GENERAL: The patient is awake, alert and oriented, lying/sitting in bed in no distress. VITAL SIGNS: Temperature 97.9 F, Pulse 80, Respiratory Rate 15, BP 132/63, Pulse Ox 97% HEENT: Head normocephalic, atraumatic. Eyes: Extraocular muscles are intact. Pupils are equal, round and reactive to light and accommodation. Ears: No lesions. Nose appeared normal. Throat: No exudate or erythema. NECK: Supple. No JVD, no carotid bruit. No lymphadenopathy or thyromegaly. LUNGS: Clear to auscultation. Percussion note normal. Chest symmetrical. HEART: S1, S2, no S3. No murmurs. No cyanosis or clubbing. No ascites. Pulses: Dorsalis pedis and posterior tibial pulses +1 to +2 both sides. ABDOMEN: Soft. Non-tender. Bowel sounds active. No CVA tenderness. No mass felt. EXTREMITIES: No edema. Full range of motion of all extremities, equal. NEUROLOGIC: No focal deficit. Cranial nerves II through XII are grossly intact. No headache, no double vision or headache. SKIN: Warm and dry. Intact. Turgor-normal. LYMPHATIC: No palpable lymph nodes/no lymphedema. MUSCULOSKELETAL: Normal joints with no swelling. Muscle tone is normal. LAB REVIEW: 08/15/18 04:10 08/15/18 04:10 08/15/18 04:10: Sodium 130.7 L, Potassium 4.78, Chloride 96.7 L, Carbon Dioxide 28.1, Anion Gap 10.68, BUN 40.2 H, Creatinine 1.77 H D, Estimated GFR (MDRD) 36.00, BUN/Creatinine Ratio 22.71, Glucose 341.4 H D, Calcium 8.53, Total Bilirubin 0.28, AST 25.6, ALT 14.6, Alkaline Phosphatase 64.2, Total Protein 6.01 L, Albumin 3.33 L, Globulin 2.68, Albumin/Globulin Ratio 1.24 08/15/18 04:10: WBC 5.71, RBC 3.26 L, Hgb 9.1 L, Hct 27.8 L, MCV 85.3, MCH 27.9 , MCHC 32.7, RDW Coeff of Michael 13.2, Plt Count 270, Immature Gran % (Auto) 0.4, Neut % (Auto) 69.8, Lymph % (Auto) 16.6, [place] % (Auto) 10.9 H, Eos % (Auto) 1.6 , Baso % (Auto) 0.7, Immature Gran # (Auto) 0.0, Neut # (Auto) 4.0, Lymph # ( Auto) 1.0, [place] # (Auto) 0.6, Eos # (Auto) 0.1, Baso # (Auto) 0.0 08/14/18 21:15: Urine Color Yellow, Urine Clarity Clear, Urine pH 6.0, Ur Specific Corinne 1.010, Urine Protein Negative, Urine Glucose (UA) Negative, Urine Ketones Negative, Urine Blood Negative, Urine Nitrite Negative, Urine Bilirubin Negative, Urine Urobilinogen 0.2, Ur Leukocyte Esterase Negative 08/14/18 20:29: Puncture Site Rrad, O2 Saturation 99.0, ABG pH 7.485 H, ABG pCO2 36.7, ABG pO2 113.0 H, ABG HCO3 27.6 H, ABG Total CO2 29 H, ABG Base Excess 4 H, Ab Test +, FiO2 % 21.0 08/14/18 19:11: Total Creatine Kinase 172.8 H, CK-MB (CK-2) 3.570 H, CK-MB (CK-2 ) % 2.0600, Troponin I 0.078 08/14/18 19:11: Sodium 134.9 L, Potassium 5.57 H, Chloride 96.4 L, Carbon Dioxide 32.1 H, Anion Gap 11.97, BUN 48.3 H, Creatinine 2.54 H, Estimated GFR ( MDRD) 24.00, BUN/Creatinine Ratio 19.01, Glucose 106.8 H, Calcium 9.50, Total Bilirubin 0.31, AST 35.1, ALT 16.8, Alkaline Phosphatase 76.8, Total Protein 7.13, Albumin 4.09, Globulin 3.04, Albumin/Globulin Ratio 1.34 08/14/18 19:11: WBC 8.40, RBC 3.83 L, Hgb 10.9 L, Hct 33.2 L, MCV 86.7, MCH 28.5 , MCHC 32.8, RDW Coeff of Michael 13.5, Plt Count 286, Immature Gran % (Auto) 0.2, Neut % (Auto) 73.2, Lymph % (Auto) 14.3, [place] % (Auto) 9.8, Eos % (Auto) 2.0, Baso % (Auto) 0.5, Immature Gran # (Auto) 0.0, Neut # (Auto) 6.2, Lymph # (Auto ) 1.2, [place] # (Auto) 0.8, Eos # (Auto) 0.2, Baso # (Auto) 0.0 08/14/18 19:02: TSH 5.520 H 08/14/18 19:02: Free T4 1.56 08/14/18 19:02: Hemoglobin A1c 6.13 H ASSESSMENT: 1. Hypoglycemia, resolved. Blood sugar is 341 this morning. 2. Kidney function is a lot better. 3. Hyperkalemia resolved. 4. Anemia from hemodilution. No evidence of active GI bleed. 5. Cardiovascular status is stable with no evidence of fluid overload. PLAN: 1. Will d/c IV fluids. 2. Will monitor potassium. 3. Encouraged the patient to drink plenty of fluids. 4. Resume all medications. 5. D/C Zestril. 6. Cozaar 50 mg daily. 7. The patient has been taken off Zestril becaue of hyperkalemia. Cozaar has been added, which should be less problematic with serum potassium. Plan and coordination of the patient's care discussed in the presence of Analytical Lab Technician and nurse. EDUCATION: Educate the patient on diet and sliding scale should be somewhat lenient in accordance with blood sugar. CONDITION: Stable SCRIBED BY: DAHIANA WILSON Ram Car Operator scribed while in presence of service performed by Dr. WESLEY ABAD on 08/15/18 ([id number])
[2018-08-15] MEDS ORDERED: NEURONTIN PO SCH ×2 (21:00)
[2018-08-15] MEDS: PERCOCET 7.5-325 PO PRN (21:02)
[2018-08-15] MEDS: LANTUS SUBCUT SCH (21:03)
[2018-08-16] MEDS: SYNTHROID PO SCH (05:45)
[2018-08-16] MEDS: HUMULIN R SUBCUT PRN (05:45)
[2018-08-16] MEDS ORDERED: LASIX TAB PO SCH (06:30)
[2018-08-16] MEDS: COZAAR PO SCH (08:40)
[2018-08-16] MEDS: CALCIUM 500 + VIT D 200 MG TABLET PO SCH (08:40)
[2018-08-16] MEDS: ASPIRIN EC PO SCH (08:40)
[2018-08-16] MEDS: NEURONTIN PO SCH (08:40)
[2018-08-16] MEDS: LOVENOX SUBCUT SCH (08:41)
--- NOTE | 2018-08-16 09:13 | PCM.PROG ---
Attending Provider: ATTENDING PROVIDER: Dr. WESLEY ABAD This patient is seen with Zoey Fragoso, Nurse Practitioner. DATE OF SERVICE: 08/16/18 SUBJECTIVE: This 87 year old WHITE/ M was hospitalized 08/14/18. The patient is sitting in bed resting comfortably. Blood sugar has been improving. Kidney function is significantly improved. Hemoglobin is up from yesterday. The patient is alert, states he is feeling well, eating well and is ready to go home. The patient is agreeable to try new sliding scale for insulin. REVIEW OF SYSTEMS: CONSTITUTIONAL: Weakness. No night sweats. No malaise, lethargy. No fever or chills. HEENT: Eyes: No visual changes. No eye pain. No eye discharge. ENT: No runny nose. No epistaxis. No sinus pain. No odynophagia. No congestion. RESPIRATORY: No cough, no congestion. No hemoptysis. No shortness of breath. CARDIOVASCULAR: No angina symptoms. No CHF symptoms. No atypical chest pain for CAD. No palpitations. No orthopnea.. GASTROINTESTINAL: No abdominal pain. No nausea or vomiting. No diarrhea or constipation. No hematemesis. No hematochezia. GENITOURINARY: No urgency. No frequency. No dysuria. No hematuria. No obstructive symptoms. No discharge. No pain. No significant abnormal bleeding. MUSCULOSKELETAL: No musculoskeletal pain; no joint swelling. NEUROLOGICAL: Awake, alert, oriented to time, place and person. No headache. No neck pain. No syncope. No seizures. No dizziness. PSYCHIATRIC: Not anxious. No depression. No suicidal thoughts. No homicidal thoughts. SKIN: No rash. No lesions. No wounds. ENDOCRINE: No unexplained weight loss. No weight gain. HEMATOLOGIC/LYMPHATIC: No anemia. No purpura. No petechiae. No prolonged or excessive bleeding. No palpable lymph nodes. PHYSICAL EXAMINATION: GENERAL: The patient is awake, alert and oriented, lying in bed in no distress. VITAL SIGNS: Temperature 97.8 F, Pulse 73, Respiratory Rate 16, BP 155/64, Pulse Ox 95% HEENT: Head normocephalic, atraumatic. Eyes: Extraocular muscles are intact. Pupils are equal, round and reactive to light and accommodation. Ears: No lesions. Nose appeared normal. Throat: No exudate or erythema. NECK: Supple. No JVD, no carotid bruit. No lymphadenopathy or thyromegaly. LUNGS: Diminished breath sounds. Clear to auscultation. Percussion note normal. Chest symmetrical. HEART: S1, S2, no S3. No murmurs. No cyanosis or clubbing. No ascites. Pulses: Dorsalis pedis and posterior tibial pulses +1 to +2 both sides. ABDOMEN: Soft. Non-tender. Bowel sounds active. No CVA tenderness. No mass felt. EXTREMITIES: Trace edema. Full range of motion of all extremities, equal. NEUROLOGIC: No focal deficit. Cranial nerves II through XII are grossly intact. No headache, no double vision or headache. SKIN: Not dry. Intact. Turgor-normal. LYMPHATIC: No palpable lymph nodes/no lymphedema. MUSCULOSKELETAL: Normal joints with no swelling. Muscle tone is normal. LAB REVIEW: 08/16/18 05:00 08/16/18 05:00 08/16/18 05:00: Sodium 131.3 L, Potassium 4.79, Chloride 100.2, Carbon Dioxide 28.3, Anion Gap 7.59, BUN 24.1 H, Creatinine 1.30 H, Estimated GFR (MDRD) 52.00 , BUN/Creatinine Ratio 18.53, Glucose 277.1 H, Calcium 9.01, Total Bilirubin 0.46, AST 24.1, ALT 14.0, Alkaline Phosphatase 70.8, Total Protein 6.26 L, Albumin 3.43 L, Globulin 2.83, Albumin/Globulin Ratio 1.21 08/16/18 05:00: WBC 5.40, RBC 3.44 L, Hgb 9.5 L, Hct 29.6 L, MCV 86.0, MCH 27.6 , MCHC 32.1, RDW Coeff of Michael 13.3, Plt Count 264, Immature Gran % (Auto) 0.2, Neut % (Auto) 66.0, Lymph % (Auto) 19.4, [place] % (Auto) 9.1, Eos % (Auto) 4.4, Baso % (Auto) 0.9, Immature Gran # (Auto) 0.0, Neut # (Auto) 3.6, Lymph # (Auto ) 1.1, [place] # (Auto) 0.5, Eos # (Auto) 0.2, Baso # (Auto) 0.1 ASSESSMENT: 1. Hypoglycemia, resolved. 2. Kidney function is a lot better. 3. Hyperkalemia resolved. 4. Anemia improved. 5. Cardiovascular status is stable with no evidence of fluid overload. PLAN: 1. Discharge home. 2. Will continue Cozaar instead of Lisinopril due to hyperkalemia. 3. Will continue Lasix 20 mg instead of 40 mg due to kidney function. 4. Start new sliding scale protocol. 5. Hypoglycemia signs, symptoms and treatment discussed in detail. 6. The patient is to followup in the office next week. Plan and coordination of the patient's care discussed in the presence of Pattern Storage Clerk and nurse. CONDITION: Stable SCRIBED BY: DAHIANA WILSON Tile Grinder scribed while in presence of service performed by Dr. Abad/Zoey Fragoso APRN on 08/16/18 (0800)
[2018-08-16 09:52] VITALS: BP 139/69; TEMP 98.5
--- NOTE | 2018-08-16 10:05 | CM.DICTOOL ---
ADMISSION: 08/14/18 20:26 DISCHARGE: AUGUST 16, 2018 DATE OF SERVICE: 08/16/18 FINAL DIAGNOSIS Acute Renal Failure Dehydration Hyperkalemia Hypoglycemia Anemia, likely hemodilution Diabetes Mellitus Hypertension Sleep Apnea (unable to tolerate c-pap) Hypothyroid Anterior Cervical Fusion, C5-T1 (per ct) LAST VITALS Temp Pulse Resp BP Pulse Ox 97.8 F 73 16 155/64 H 95 08/16/18 05:27 08/16/18 05:27 08/16/18 05:27 08/16/18 05:27 08/16/18 05:27 TAKE THESE MEDICATIONS AT HOME Aspirin (Aspirin Ec) 81 mg PO DAILYWM [facility] Last Admin: 08/16/18 08:40 Dose: 81 mg Calcium/Vitamin D (Calcium 500 + Vit D 200 Mg Tablet) 1 each PO BID [facility] Last Admin: 08/16/18 08:40 Dose: 1 each Cyanocobalamin (Vitamin B-12) 1,000 mcg IM MONTHLY [facility] Furosemide (Lasix Tab) 20 mg PO QDAC [facility] Last Admin: 08/16/18 05:45 Dose: 20 mg Gabapentin (Neurontin) 200 mg PO DAILY [facility] Last Admin: 08/16/18 08:40 Dose: 200 mg Gabapentin (Neurontin) 500 mg PO BEDTIME [facility] Last Admin: 08/15/18 21:00 Dose: 300 mg Insulin Glargine (Lantus) 5 unit SUBCUT BEDTIME [facility] Last Admin: 08/15/18 21:03 Dose: 5 unit Insulin Human Regular (Humulin R) 0 - 12 unit SUBCUT PRN PRN; Protocol PRN Reason: Hyperglycemica Last Admin: 08/16/18 05:45 Dose: 6 unit Levothyroxine Sodium (Synthroid) 200 mcg PO QDAC [facility] Last Admin: 08/16/18 05:45 Dose: 200 mcg Losartan Potassium (Cozaar) 50 mg PO DAILY [facility] Last Admin: 08/16/18 08:40 Dose: 50 mg Oxycodone/Acetaminophen (Percocet 7.5-325) 1 tab PO Q8H PRN PRN Reason: severe pain Last Admin: 08/15/18 21:02 Dose: 1 tab ALLERGIES clindamycin HCl [From Cleocin] Adverse Reaction (Intermediate, Verified 18:47) DISCONTINUED MEDICATIONS Lasix 40 mg daily Zestril 40 mg daily Sliding Scale Regular Insulin of blood sugar-100 divided by 20 + 6 units Lantus 10 mg daily at bedtime NEW PRESCRIPTIONS: Lasix 20 mg daily ([facility]) Cozaar 50 mg daily ([facility] day script for [facility] and 30 day script for [facility]) SMOKING: Not Applicable DISEASE SPECIFIC EDUCATION: Nutrition Hydration Medication changes Activity LAB REVIEW: 08/16/18 05:00 08/16/18 05:00 08/16/18 05:00: Sodium 131.3 L, Potassium 4.79, Chloride 100.2, Carbon Dioxide 28.3, Anion Gap 7.59, BUN 24.1 H, Creatinine 1.30 H, Estimated GFR (MDRD) 52.00 , BUN/Creatinine Ratio 18.53, Glucose 277.1 H, Calcium 9.01, Total Bilirubin 0.46, AST 24.1, ALT 14.0, Alkaline Phosphatase 70.8, Total Protein 6.26 L, Albumin 3.43 L, Globulin 2.83, Albumin/Globulin Ratio 1.21 08/16/18 05:00: WBC 5.40, RBC 3.44 L, Hgb 9.5 L, Hct 29.6 L, MCV 86.0, MCH 27.6 , MCHC 32.1, RDW Coeff of Michael 13.3, Plt Count 264, Immature Gran % (Auto) 0.2, Neut % (Auto) 66.0, Lymph % (Auto) 19.4, [place] % (Auto) 9.1, Eos % (Auto) 4.4, Baso % (Auto) 0.9, Immature Gran # (Auto) 0.0, Neut # (Auto) 3.6, Lymph # (Auto ) 1.1, [place] # (Auto) 0.5, Eos # (Auto) 0.2, Baso # (Auto) 0.1 PLAN: Discharge home Diet: Consistent Carbohydrates Liquids encouraged (water) Activity: Resume as tolerated Continue to check your blood sugars at least 4 times a day for 1 week. If blood sugars are stable, resume twice a day blood sugars Continue medications as listed on nursing discharge information sheet New Sliding Scale Regular Insulin: 0-120 0 insulin 121-150 2 units 151-200 4 units 201-250 6 units 251-300 8 units 301-351 10 units greater 351 give 12 units and call MD An appointment is scheduled with Dr. Jeffers/Zoey Fragoso APRN on at 11 am Mr. Mijares is alert and oriented x 3. He is independent with Activities of Daily Living. He is eating at least 100% of meals and denies abdominal pain or nausea. Mr. Mijares checks his own blood sugars via accu-check machine and gives own insulin injections as he has for a number of years. Mr. Mijares transfers indepedently from the bed to the chair and to the bathroom. He is ambulatory without staff assistance or use of an assistive device. Mr. Mijares is continent of bladder and bowel. No skin breakdown noted. Sam Jeffers MD Zoey Fragoso APRN
--- NOTE | 2018-08-17 12:52 | PN ---
DATE OF SERVICE: 08/16/18 SUBJECTIVE: The patient was seen and examined with Nurse Practitioner. The patient has hypoglycemia which has resolved. His kidney failure has resolved and hyperkalemia has resolved. The patient is on strict diet enforced by him this is how he has lived his life all these years. It is going to be difficult to convince him to eat more but he is going to try. The family is very helpful. TIME SPENT: More than 30 minutes. Plan and coordination of the patient's care discussed in the presence of nurse. RONNELL
--- NOTE | 2018-08-17 12:53 | PN ---
08/14/18: Level 5 08/15/18: Intermediate 08/16/18: D as in discharge MTDD
--- NOTE | 2018-08-17 14:46 | PN ---
DATE OF SERVICE: 08/14/18 (See below) SUBJECTIVE: 89 year old white male was hospitalized today. The emergency room doctor Maria Elena called me. The patient had hypoglycemia and that is why he was brought to the emergency room. On further workup the patient's blood sugar was 106, he was awake and no symptoms of CHF or coronary insufficiency. His EKG showed sinus rhythm unchanged from the one done before no acute changes. The patient had abnormal creatinine and BUN. The creatinine was 2.5 and BUN was elevated. His potassium was 5.5. ASSESSMENT: 1. Hypoglycemia 2. Renal failure 3. Hyperkalemia PLAN: 1. Give the patient Kayexalate 25mg 2. IV fluids 75cc per hour 3. Watch for fluid overload 4. Discontinue Lisinopril which can cause hyperkalemia 5. Daily CBC and CMP ADDENDUM: I did not see this patient on admission day TIME SPENT: More than 30 minutes. Plan and coordination of the patient's care discussed in the presence of nurse. RONNELL
--- NOTE | 2018-08-18 14:48 | DS ---
DATE OF SERVICE: 08/16/18 FINAL DIAGNOSIS: 1. ACUTE RENAL FAILURE 2. DEHYDRATION 3. HYPERKALEMIA 4. HYPOGLYCEMIA 5. ANEMIA, LIKELY HEMODILUTION 6. DIABETES MELLITUS 7. HYPERTENSION 8. SLEEP APNEA (UNABLE TO TOLERATE C-PAP) 9. HYPOTHYROID 10. ANTERIOR CERVICAL FUSION, C5-T1 (PER CT) LAST VITALS: Temperature 97.8, pulse 73, respiratory rate 16, BP 155/64, pulse ox 95 DISCHARGE INSTRUCTIONS: 1. Followup appointment scheduled with Dr. Jeffers/Zoey Fragoso, ABEL 08/22/18 at 11 a.m. 2. Continue to check your blood sugars at least four times a day for one week. If blood sugars are stable, resume twice a day blood sugars. 3. New sliding scale regular insulin: 0-120 = 0 insulin; 121-150 = 2 units; 151-200 = 4 units; 201-250 = 6 units; 251-300 = 8 units; 301-351 = 10 units; greater than 351 give 12 units and call M.D. MEDICATIONS AT DISCHARGE: Aspirin 81 mg p.o. daily with meal [facility] Calcium/Vitamin D one each p.o. b.i.d. [facility] Cyanocobalamin 1,000 mcg IM monthly [facility] Furosemide 20m g p.o. q.d a.c. [facility] Gabapentin 200 mg p.o. daily [facility] Gabapentin 500 mg p.o. bedtime [facility] Insulin Glargine (Lantus) 5 unit subcut bedtime [facility] Insulin Human Regular 0-12 unit subcut p.r.n. protocol Levothyroxine 200 mcg p.o. q.d a.c. [facility] Losartan 50 mg p.o. daily [facility] Oxycodone/Acetaminophen one tab p.o. q.8h p.r.n. DISCONTINUED MEDICATIONS: Lasix 40 mg daily Zestril 40 mg daily Sliding Scale Regular Insulin of blood sugar - 100 divided by 20 + 6 units Lantus 10 mg daily at bedtime NEW PRESCRIPTIONS: Lasix 20 mg daily ([facility]) Cozaar 50 mg daily ([facility] script [facility] and [facility] day script for [facility]) DIET INSTRUCTIONS: Consistent Carbohydrates, liquids encouraged (water) ACTIVITY: Resume as tolerated SMOKING: N/A DISEASE SPECIFIC EDUCATION: Nutrition Hydration Medication changes Activity HOSPITAL COURSE: This is an 87-year-old white male who presented at home with confusion, sweating. His glucose was in the 70's. They administered 37 gm of carbohydrates and his sugar only increased in the 80s. He was still confused. They brought him to the emergency room. He has been an insulin dependent diabetic for some years now and is very well-controlled although as of late he has been eating less. Upon admission to the emergency room, he was found to be in acute renal failure with creatinine of 2.5 and hyperkalemic with a potassium of 5.6. He was admitted and placed on telemetry orders, given 25 gm of Kayexalate p.o., started on IV fluids slowly NS at 75 cc/hr. After the first 24 hours, his hemoglobin did drop to 9.1 which is believed to be hemodilution. As of yesterday, fluids were stopped. Today, hemoglobin is back up to 9.5. Kidney function is significantly improved. Today, on day of discharge, creatinine is down to 1.5 and BUN is in the 20's. This is a significant improvement compared to admission with creatinine of 2.5. He states he is feeling much better. He is no longer confused. He has been eating more today. We have agreed to change his sliding scale insulin in order to do less insulin per him and he has agreed to try this new sliding scale protocol. We did stop his Lisinopril and Lasix initially due to kidney function and Lisinopril especially for hyperkalemia. We started him yesterday on Cozaar 50 mg daily. We restarted his Lasix 20 mg p.o. this morning so this is a decrease as he use to take Lasix 40 mg. He will go home on Lasix 20 mg daily along with Cozaar 50. He is no longer on Lisinopril. The patient is agreeable to all of these changes. He has been up and about. He states he is feeling well and is ready to go home. We will send him home in stable condition to followup with him next week. He understands his new sliding scale protocol. Monitor signs and symptoms of hypoglycemia. Will see him in the office and do a CBC and CMP. TIME SPENT: More than 60 minutes. RONNELL
--- NOTE | 2018-08-18 14:50 | HP ---
DATE OF SERVICE: 08/14/18 HISTORY OF PRESENT ILLNESS: This is an 87-year-old white male who was confused at home, found to be hypoglycemic. Initially at home, glucose was in the 70s They gave him approximately 37 gm of carbs. By the time they reached the emergency room, glucose was up to 90. He was confused, diaphoretic at home. PAST MEDICAL HISTORY: Diabetes mellitus type 2. It has been well-controlled for some time, insulin dependent. Hypertension Sleep apnea, unable to tolerate CPAP machine Hypothyroidism Neuropathy Osteoarthritis PAST SURGICAL HISTORY: C-spine surgery Cervical fusion, C5 through T1 (unsure of year) Status post cholecystectomy REVIEW OF SYSTEMS: CONSTITUTIONAL: Positive for weakness, confusion. No night sweats. No malaise , lethargy. No fever or chills. HEENT: Eyes: No visual changes. No eye pain. No eye discharge. ENT: No runny nose. No epistaxis. No sinus pain. No sore throat. No odynophagia. No ear pain. No congestion. RESPIRATORY: No cough, no congestion. No hemoptysis. No shortness of breath. CARDIOVASCULAR: No angina symptoms. No CHF symptoms. No atypical chest pain for CAD. No palpitations. No PND. No orthopnea. GASTROINTESTINAL: Positive for nausea. No abdominal pain. No vomiting. No diarrhea or constipation. No hematemesis. No hematochezia. GENITOURINARY: No urgency. No frequency. No dysuria. No hematuria. No obstructive symptoms. No discharge. No pain. No significant abnormal bleeding. MUSCULOSKELETAL: No musculoskeletal pain. No joint swelling. No arthritis. NEUROLOGICAL: No headache. No neck pain. No syncope. No seizures. No dizziness. PSYCHIATRIC: Not anxious. No depression. No suicidal thoughts. No homicidal thoughts. SKIN: No rash. No lesions. No wounds. ENDOCRINE: No unexplained weight loss. No weight gain. HEMATOLOGIC/LYMPHATIC: No anemia. No purpura. No petechiae. No prolonged or excessive bleeding. No palpable lymph nodes. PERSONAL/FAMILY/SOCIAL HISTORY: He is a former smoker, has quit for several years. He lives at home with his . No alcohol or illicit drug use. MEDICATIONS: (HOME) Furosemide (Lasix) 40 mg p.o. daily Levothyroxine 200 mcg p.o. daily Cyanocobalamin 1,000 mcg IM monthly Insulin 10 unit SQ bedtime Calcium Carbonate/Vitamin D3 one each p.o. b.i.d. Diphenhydramine 50 mg p.o. q.6h p.r.n. Gabapentin 500 mg p.o. bedtime Gabapentin 200 mg p.o. daily Oxycodone-Acetaminophen 7.5-325 one tab p.o. q.8h p.r.n. ALLERGIES: CLINDAMYCIN HCI PHYSICAL EXAMINATION: VITAL SIGNS: Temperature 96.3, heart rate 75, respiratory rate 20, BP 161/86, pulse ox 97%. HEENT: Head normocephalic, atraumatic. Eyes: Extraocular muscles are intact. Pupils are equal, round and reactive to light and accommodation. Ears: No lesions. Nose appeared normal. Throat: No exudate or erythema. NECK: Supple. No JVD, no carotid bruit. No lymphadenopathy or thyromegaly. LUNGS: Diminished breath sounds bilaterally. Clear to auscultation. Percussion note normal. Chest symmetrical. HEART: S1, S2, no S3. No murmurs. No cyanosis or clubbing. No ascites. Pulses: Dorsalis pedis and posterior tibial pulses +1 to +2 bilaterally. ABDOMEN: Soft. Nontender. Bowel sounds active. No CVA tenderness. No mass felt. EXTREMITIES: Trace bilateral leg edema which is chronic. Full range of motion of all extremities, equal. NEUROLOGIC: Alert and oriented to person and place. No focal deficit. Cranial nerves II through XII are grossly intact. No headache, no double vision or headache. SKIN: Not dry. Intact. Turgor - normal. LYMPHATIC: No palpable lymph nodes/no lymphedema. MUSCULOSKELETAL: Normal joints with no swelling. Muscle tone is normal. LAB VALUES: White count 8.4, hemoglobin 10.9, hematocrit 33.2, platelets 286. Sodium 134.9, potassium 5.57, BUN 48.3, creatinine 2.54, glucose 106. A1C 6.13, free T4 1.5, TSH 5.5. Total CK 172, CK-MB 3.5, troponin 0.07, total protein 7.1. ASSESSMENT: 1. HYPOGLYCEMIA. 2. ACUTE RENAL FAILURE WITH CREATININE 2.5. 3. HYPOKALEMIA WITH CREATININE 5.6. PLAN: 1. We will admit. 2. Routine telemetry orders. 3. CBC, CMP daily. 4. IV fluids NS at 75 cc/hr. 5. 25 gm of Kayexalate p.o. now. 6. Regular low sodium diet. 7. Accu-Cheks with sliding scale insulin. 8. Hold Lisinopril and Lasix. 9. Continue all other home medications. 10. We will watch him closely. TIME SPENT: More than 70 minutes. RONNELL
== END 2018-08-16 10:25 | disposition home or self-care (01) | DRG 641 ==
LOC: ED 18:42 → MEDSURG B 20:26
PROVIDERS: ADMIT Internal Medicine; ATTEND Internal Medicine
DX: E16.2 Hypoglycemia, unspecified (principal); N17.9 Acute kidney failure, unspecified; E11.9 Type 2 diabetes mellitus without complications; E86.0 Dehydration; E87.5 Hyperkalemia; E03.9 Hypothyroidism, unspecified; D64.9 Anemia, unspecified; R63.0 Anorexia; R61 Generalized hyperhidrosis; F41.9 Anxiety disorder, unspecified; I10 Essential (primary) hypertension; G47.30 Sleep apnea, unspecified; M43.22 Fusion of spine, cervical region
CPT/HCPCS: 36415; 80053; 81001; 82550; 82553; 82803; 82962; 83036; 84439; 84443; 84484; 85025; 93005; 93010; 97802; 99284

== ENCOUNTER 2018-10-01 17:05 | Inpatient (IN) | payer OTHER ==
[2018-10-01] MEDS ORDERED: DEXTROSE 50%-WATER ABBOJECT ONE (17:20)
[2018-10-01] MEDS ORDERED: DEXTROSE 50%-WATER ABBOJECT IVP STA ×2 (17:28→19:12)
--- NOTE | 2018-10-01 17:29 | ED.PDOC ---
General ED Provider: Dr. JEFF DOTSON Chief Complaint: Chest Pain Stated Complaint: Pain across chest that radiated across shoulders. States he was going down steps at that time. Pain lasted approx 10 min. Sweaty. No nausea. Has had 3 similar episodes this week. Daughter thinks blood sugar may be "off". Pt not acting right. Currently denies chest discomfort. Time Seen by Physician: 17:25 Mode of Arrival: Walk-In Information Source: Patient Exam Limitations: No limitations Primary Care Provider: WESLEY WOODALL Nursing and Triage Documentation Reviewed and Agree: Yes Does patient meet sepsis criteria?: No System Inflammatory Response Syndrome: Not Applicable Sepsis Protocol: For patient's 13 years and over: Temp is 96.8 and below OR 101 and greater Pulse >90 BPM Resp >20/minute Acutely Altered Mental Status Are patient's symptoms suggestive of a new infection, such as: -Pneumonia -Skin, Soft Tissue -Endocarditis -UTI -Bone, Joint Infection -Implantable Device -Acute Abdominal Infection -Wound Infection -Meningitis -Blood Stream Catheter Infection -Unknown Review of Systems - Review Of Systems Constitutional: Reports: Diaphoresis Eyes: Reports: No symptoms Ears, Nose, Mouth, Throat: Reports: No symptoms Respiratory: Reports: No symptoms Cardiac: Reports: Chest pain GI: Reports: No symptoms : Reports: No symptoms Musculoskeletal: Reports: No symptoms Skin: Reports: No symptoms Neurological: Reports: Cognitive dysfunction, Weakness Endocrine: Reports: Excessive sweating Hematologic/Lymphatic: Reports: No symptoms All Other Systems: Reviewed and Negative Past Medical History - Past Medical History Previously Healthy: Yes Endocrine: Reports: DM 2, Hypothyroid Cardiovascular: Reports: None Respiratory: Reports: None Hematological: Reports: None Gastrointestinal: Reports: None Genitourinary: Reports: None Neuro/Psych: Reports: None Musculoskeletal: Reports: None Cancer: Reports: None - Surgical History General Surgical History: Reports: Cholecystectomy, Back Surgery (CERVICAL SPINE SURGERY X2) - Family History Family History: Reports: Unknown - Social History Smoking Status: Former smoker Hx Substance Use: No Alcohol Screening: None Physical Exam - Physical Exam Appearance: Ill-appearing Ill-appearing: Moderate Pain Distress: None Eyes: ELIOT, EOMI, Conjunctiva clear ENT: Ears normal, Nose normal, Oropharynx normal Neck: Supple Respiratory: Airway patent, Breath sounds clear, Breath sounds equal, Respirations nonlabored Cardiovascular: RRR, Pulses normal, No rub, No murmur GI/: Soft, Nontender, No masses, Bowel sounds normal, No Organomegaly Musculoskeletal: Normal strength, ROM intact, No edema, No calf tenderness Skin: Warm, Dry, Normal color Neurological: Sensation intact, Motor intact, Reflexes intact, Cranial nerves intact, Alert, Oriented Psychiatric: Affect appropriate, Mood appropriate Critical Care Note - Critical Care Note Total Time (mins): 120 Course - Course Hematology/Chemistry: 10/01/18 17:43 10/01/18 17:43 Orders, Labs, Meds: Lab Review 10/01/18 10/01/18 10/01/18 17:43 17:43 17:43 WBC 7.99 RBC 3.55 L Hgb 9.6 L Hct 29.5 L MCV 83.1 MCH 27.0 MCHC 32.5 RDW Coeff of Michael 13.1 Plt Count 346 Immature Gran % (Auto) 0.3 Neut % (Auto) 59.0 Lymph % (Auto) 28.7 [place] % (Auto) 10.1 H Eos % (Auto) 1.4 Baso % (Auto) 0.5 Immature Gran # (Auto) 0.0 Neut # (Auto) 4.7 Lymph # (Auto) 2.3 [place] # (Auto) 0.8 Eos # (Auto) 0.1 Baso # (Auto) 0.0 Sodium 132.3 L Potassium 3.24 L Chloride 98.8 Carbon Dioxide 25.5 Anion Gap 11.24 BUN 18.7 Creatinine 1.11 H Estimated GFR (MDRD) 62.00 BUN/Creatinine Ratio 16.84 Glucose 161.0 H Lactic Acid 1.66 Calcium 8.76 Magnesium 1.97 Total Bilirubin 0.30 AST 27.0 ALT 15.0 Alkaline Phosphatase 62.8 Total Creatine Kinase CK-MB (CK-2) CK-MB (CK-2) % Troponin I 0.239 H Total Protein 6.93 Albumin 3.93 Globulin 3.00 Albumin/Globulin Ratio 1.31 Amylase 44.4 Lipase 29.0 10/01/18 17:43 WBC RBC Hgb Hct MCV MCH MCHC RDW Coeff of Michael Plt Count Immature Gran % (Auto) Neut % (Auto) Lymph % (Auto) [place] % (Auto) Eos % (Auto) Baso % (Auto) Immature Gran # (Auto) Neut # (Auto) Lymph # (Auto) [place] # (Auto) Eos # (Auto) Baso # (Auto) Sodium Potassium Chloride Carbon Dioxide Anion Gap BUN Creatinine Estimated GFR (MDRD) BUN/Creatinine Ratio Glucose Lactic Acid Calcium Magnesium Total Bilirubin AST ALT Alkaline Phosphatase Total Creatine Kinase 201.9 H CK-MB (CK-2) 3.570 H CK-MB (CK-2) % 1.7600 Troponin I Total Protein Albumin Globulin Albumin/Globulin Ratio Amylase Lipase Orders Category Date Time Status EKG-(ED ONLY) Stat CARDIO 10/01/18 17:25 Completed EKG-(ED ONLY) Stat CARDIO 10/01/18 19:02 Completed IV [ED IV/MEDIPORT/POWERPORT] .ONCE EMERGENCY 10/01/18 17:25 Active AMYLASE Stat LAB 10/01/18 17:43 Completed BLOOD CULTURE (ED ONLY) Stat LAB 10/01/18 17:43 Received CBC W/ AUTO DIFF Stat LAB 10/01/18 17:43 Completed CMP [COMPREHENSIVE METABOLIC PANEL] Stat LAB 10/01/18 17:43 Completed CPK [CREATINE KINASE] Stat LAB 10/01/18 17:43 Completed LACTIC ACID Stat LAB 10/01/18 17:43 Completed LIPASE Stat LAB 10/01/18 17:43 Completed MAGNESIUM Stat LAB 10/01/18 17:43 Completed TROPONIN I Stat LAB 10/01/18 17:43 Completed UA [URINALYSIS C & S IF INDICATED] Stat LAB 10/01/18 17:26 Uncollected 0.9 % Sodium Chloride [Saline Flush] MEDS 10/01/18 17:25 Ordered 1 syr IVF PRN PRN Dextrose 5 %-Water [Dextrose 5%-Water IV Soln] 1,000 ml MEDS 10/01/18 19:12 Active IV 100 mls/hr Dextrose 50 % in Water [Dextrose 50%-Water Abboject] MEDS 10/01/18 17:20 Discontinued 50 ml .ROUTE .STK-MED ONE Dextrose 50 % in Water [Dextrose 50%-Water Abboject] MEDS 10/01/18 17:28 Discontinued 50 ml IVP ONCE STA Dextrose 50 % in Water [Dextrose 50%-Water Abboject] MEDS 10/01/18 19:12 Discontinued 50 ml IVP ONCE STA CHEST, 1V AP ONLY Stat RADS 10/01/18 17:25 Taken Medications Generic Name Dose Route Start Last Admin Trade Name Freq PRN Reason Stop Dose Admin Dextrose 1,000 mls @ 100 mls/hr 10/01/18 19:12 10/01/18 19:18 Dextrose 5%-Water Iv Soln IV 10/02/18 05:11 100 mls/hr .Q10H STA Administration Sodium Chloride 1 syr 10/01/18 17:25 10/01/18 19:17 Saline Flush IVF 1 syr PRN PRN Administration To flush IV Discontinued Medications Generic Name Dose Route Start Last Admin Trade Name Angelica PRN Reason Stop Dose Admin Dextrose 50 ml 10/01/18 17:28 10/01/18 17:43 Dextrose 50%-Water Abboject IVP 10/01/18 17:29 Not Given ONCE STA Dextrose 50 ml 10/01/18 19:12 10/01/18 19:16 Dextrose 50%-Water Abboject IVP 10/01/18 19:13 50 ml ONCE STA Administration Vital Signs: Temp Pulse Resp BP Pulse Ox 10/01/18 17:05 96.8 F L 97 H 20 144/72 H 97 Departure - Departure Time of Disposition: 19:30 (Special Care Unit) Disposition: ADMITTED INPATIENT Discharge Problem: Non-STEMI (non-ST elevated myocardial infarction), DM (diabetes mellitus) type II uncontrolled, periph vascular disorder, Hypoglycemia Condition: Fair Pt referred to PMD for follow-up: Yes (dr woodall) MP verified?: No Allergies/Adverse Reactions: Allergies clindamycin HCl [From Cleocin] Adverse Reaction (Intermediate, Verified 17:11) Home Medications: Ambulatory Orders Calcium Carbonate/Vitamin D3 [Calcium 600 + Vit D Tablet] 1 each PO BID Cyanocobalamin (Vitamin B-12) [Vitamin B-12] 1,000 mcg IM MONTHLY 03/30/13 Levothyroxine Sodium [Synthroid] 200 mcg PO DAILY 03/30/13 Diphenhydramine HCl [Benadryl] 50 mg PO Q6H PRN 12/22/16 Gabapentin 200 mg PO DAILY 12/22/16 Gabapentin 500 mg PO BEDTIME 12/22/16 Oxycodone-Acetaminophe 7.5-325 [Percocet 7.5-325] 1 tab PO Q8H PRN 12/22/16 Furosemide [Lasix Tab] 20 mg PO QDAC #90 tablet 08/16/18 Losartan Potassium [Cozaar] 50 mg PO DAILY #90 tablet 08/16/18 Aspirin 81 mg PO DAILY 10/01/18 Insulin Glargine,Hum.rec.anlog [Lantus] 10 unit SUBCUT BEDTIME 10/01/18 Insulin Lispro [Humalog] See Protocol SQ TID 10/01/18 Magnesium Oxide [Magnesium] 500 mg PO DAILY 10/01/18 Disposition Discussed With: Patient, Family, Other (Dr WOODALL)
[2018-10-01] MEDS ORDERED: DEXTROSE 5%-WATER IV SOLN 1,000 ML IV STA (19:12)
[2018-10-01] MEDS ORDERED: MORPHINE 2 MG/ML SYRINGE IVP PRN (20:27)
[2018-10-01] MEDS ORDERED: NITROSTAT SL PRN (20:27)
[2018-10-01] MEDS ORDERED: TYLENOL PO PRN (20:27)
[2018-10-01] MEDS ORDERED: LOVENOX SUBCUT SCH (21:00)
[2018-10-01] MEDS ORDERED: ASPIRIN CHEWABLE PO SCH (21:00)
[2018-10-01 21:46] VITALS: BMI 23.0
[2018-10-01] MEDS ORDERED: NEURONTIN ONE (22:40)
[2018-10-01] MEDS: PLAVIX PO SCH (22:48)
[2018-10-01] MEDS: LANTUS SUBCUT SCH (22:48)
[2018-10-01] MEDS: NEURONTIN PO SCH (22:48)
[2018-10-02] MEDS: LASIX TAB PO SCH (06:30)
--- NOTE | 2018-10-02 07:43 | DI ---
EXAM: Chest one view, frontal view only. HISTORY: Altered mental status. COMPARISON: 09/11/2017. FINDINGS: The heart size is normal. Atherosclerotic calcifications present. There is no pulmonary vascular congestion. Reticulonodular opacities are seen in the left mid to lower lung which appear n ew. Calcified granulomatous changes present. Otherwise, the lungs are clear. No pleural effusion o r pneumothorax is seen. No acute osseous abnormality is identified. Postsurgical changes of the cer vical/thoracic spine are incompletely imaged. IMPRESSION: Left lung reticulonodular opacities likely due to airways infection/inflammation.
[2018-10-02] MEDS ORDERED: NON-FORMULARY MEDICATION (Losartan Potassium 50 MG) PO SCH (09:00)
[2018-10-02] MEDS ORDERED: NON-FORMULARY MEDICATION (Magnesium Oxide [Magnesium] 500 MG) PO SCH (09:00)
[2018-10-02] MEDS ORDERED: NON-FORMULARY MEDICATION (Levothyroxine Sodium [Synthroid] 200 MCG) PO SCH (09:00)
[2018-10-02] MEDS: IMDUR PO SCH ×2 (09:02→14:59)
[2018-10-02] MEDS: NEURONTIN PO SCH ×2 (09:02→20:32)
[2018-10-02] MEDS: COZAAR PO SCH (09:02)
[2018-10-02] MEDS: SYNTHROID PO SCH (09:03)
[2018-10-02] MEDS: MAG-OX PO SCH (09:03)
[2018-10-02] MEDS: ASPIRIN CHEWABLE PO SCH (09:03)
[2018-10-02] MEDS: PLAVIX PO SCH (09:03)
--- NOTE | 2018-10-02 09:59 | PCM.PROG ---
Attending Provider: ATTENDING PROVIDER: Dr. WESLEY ABAD This patient is seen with Zoey Fragoso, Nurse Practitioner. DATE OF SERVICE: 10/02/18 SUBJECTIVE: This 88 year old WHITE/ M was hospitalized 10/01/18. The patient is resting comfortably. He has not experienced any chest pain since being here. The patient is alert and oriented. REVIEW OF SYSTEMS: CONSTITUTIONAL: No night sweats. No fatigue, malaise, lethargy. No fever or chills. HEENT: Eyes: No visual changes. No eye pain. No eye discharge. ENT: No runny nose. No epistaxis. No sinus pain. No odynophagia. No congestion. RESPIRATORY: No cough, no congestion. No hemoptysis. No shortness of breath. CARDIOVASCULAR: No angina symptoms. No CHF symptoms. No atypical chest pain for CAD. No palpitations. No orthopnea. Intermittent chest pain. GASTROINTESTINAL: No abdominal pain. No nausea or vomiting. No diarrhea or constipation. No hematemesis. No hematochezia. GENITOURINARY: No urgency. No frequency. No dysuria. No hematuria. No obstructive symptoms. No discharge. No pain. No significant abnormal bleeding. MUSCULOSKELETAL: No musculoskeletal pain; no joint swelling. NEUROLOGICAL: Awake, alert, oriented to time, place and person. No headache. No neck pain. No syncope. No seizures. No dizziness. PSYCHIATRIC: Not anxious. No depression. No suicidal thoughts. No homicidal thoughts. SKIN: No rash. No lesions. No wounds. ENDOCRINE: No unexplained weight loss. No weight gain. HEMATOLOGIC/LYMPHATIC: No anemia. No purpura. No petechiae. No prolonged or excessive bleeding. No palpable lymph nodes. PHYSICAL EXAMINATION: GENERAL: The patient is awake, alert and oriented, lying in bed in no distress. VITAL SIGNS: Temperature 97.6 F, Pulse 64, Respiratory Rate 12, BP 134/67, Pulse Ox 97% HEENT: Head normocephalic, atraumatic. Eyes: Extraocular muscles are intact. Pupils are equal, round and reactive to light and accommodation. Ears: No lesions. Nose appeared normal. Throat: No exudate or erythema. NECK: Supple. No JVD, no carotid bruit. No lymphadenopathy or thyromegaly. LUNGS: Diminished breath sounds bilaterally. Clear to auscultation. Percussion note normal. Chest symmetrical. HEART: S1, S2, no S3. No murmurs. No cyanosis or clubbing. No ascites. Pulses: Dorsalis pedis and posterior tibial pulses +1 to +2 both sides. ABDOMEN: Soft. Non-tender. Bowel sounds active. No CVA tenderness. No mass felt. EXTREMITIES: No edema. Full range of motion of all extremities, equal. NEUROLOGIC: No focal deficit. Cranial nerves II through XII are grossly intact. No headache, no double vision or headache. SKIN: Not dry. Intact. Turgor-normal. LYMPHATIC: No palpable lymph nodes/no lymphedema. MUSCULOSKELETAL: Normal joints with no swelling. Muscle tone is normal. LAB REVIEW: 10/02/18 04:28 10/02/18 04:28 10/02/18 04:28: WBC 5.27, RBC 3.36 L, Hgb 9.1 L, Hct 27.8 L, MCV 82.7, MCH 27.1 , MCHC 32.7, RDW Coeff of Michael 13.1, Plt Count 264, Immature Gran % (Auto) 0.2, Neut % (Auto) 65.1, Lymph % (Auto) 22.8, [place] % (Auto) 10.4 H, Eos % (Auto) 1.1 , Baso % (Auto) 0.4, Immature Gran # (Auto) 0.0, Neut # (Auto) 3.4, Lymph # ( Auto) 1.2, [place] # (Auto) 0.6, Eos # (Auto) 0.1, Baso # (Auto) 0.0 10/02/18 04:28: Sodium 127.7 L, Potassium 4.15, Chloride 97.1 L, Carbon Dioxide 27.9, Anion Gap 6.85, BUN 13.4, Creatinine 0.95, Estimated GFR (MDRD) 75.00, BUN /Creatinine Ratio 14.10, Glucose 272.4 H D, Calcium 8.25 L, Total Bilirubin 0.23 , AST 23.8, ALT 12.6, Alkaline Phosphatase 56.4, Total Creatine Kinase 241.3 H, CK-MB (CK-2) 4.610 H, CK-MB (CK-2) % 1.9100, Troponin I 0.327 H, Total Protein 5.79 L, Albumin 3.20 L, Globulin 2.59, Albumin/Globulin Ratio 1.23 10/01/18 23:20: Urine Color Yellow, Urine Clarity Clear, Urine pH 6.5, Ur Specific [place] 1.010, Urine Protein Negative, Urine Glucose (UA) 2+, Urine Ketones Negative, Urine Blood Negative, Urine Nitrite Negative, Urine Bilirubin Negative, Urine Urobilinogen 0.2, Ur Leukocyte Esterase Negative 10/01/18 17:43: Total Creatine Kinase 201.9 H, CK-MB (CK-2) 3.570 H, CK-MB (CK-2 ) % 1.7600 10/01/18 17:43: Lactic Acid 1.66 10/01/18 17:43: Sodium 132.3 L, Potassium 3.24 L, Chloride 98.8, Carbon Dioxide 25.5, Anion Gap 11.24, BUN 18.7, Creatinine 1.11 H, Estimated GFR (MDRD) 62.00, BUN/Creatinine Ratio 16.84, Glucose 161.0 H, Calcium 8.76, Magnesium 1.97, Total Bilirubin 0.30, AST 27.0, ALT 15.0, Alkaline Phosphatase 62.8, Troponin I 0.239 H, Total Protein 6.93, Albumin 3.93, Globulin 3.00, Albumin/Globulin Ratio 1.31, Amylase 44.4, Lipase 29.0 10/01/18 17:43: WBC 7.99, RBC 3.55 L, Hgb 9.6 L, Hct 29.5 L, MCV 83.1, MCH 27.0 , MCHC 32.5, RDW Coeff of Michael 13.1, Plt Count 346, Immature Gran % (Auto) 0.3, Neut % (Auto) 59.0, Lymph % (Auto) 28.7, [place] % (Auto) 10.1 H, Eos % (Auto) 1.4 , Baso % (Auto) 0.5, Immature Gran # (Auto) 0.0, Neut # (Auto) 4.7, Lymph # ( Auto) 2.3, [place] # (Auto) 0.8, Eos # (Auto) 0.1, Baso # (Auto) 0.0 ASSESSMENT: Please see below. 1. Chest pain 2. Hypoglycemia 3. Diabetes mellitus, type 2 insulin dependant PLAN: 1. T4/TSH 2. D/C Lovenox 3. Chest x-ray 4. Imdur 15mg PO twice a day 5. Home, sliding scale Plan and coordination of the patient's care discussed in the presence of Software Trainer and nurse. SCRIBED BY: Danay BRAVO scribed while in presence of service performed by Dr. Abad/Zoey Fragoso APRN on 10/02/18 ([id number])
[2018-10-02] MEDS: HUMULIN R SUBCUT PRN (11:03)
--- NOTE | 2018-10-02 12:25 | DI ---
EXAM: Chest two view, frontal and lateral views. HISTORY: Chest pain, dyspnea. COMPARISON: 10/01/2018, , 09/11/2017, 03/22/2012, 08/06/2009. FINDINGS: The heart size is normal. Atherosclerotic calcifications are present. There is no pulmon shahnaz vascular congestion. The lungs are clear save for stable left basilar reticulonodular opacities and mild right basilar reticulonodular opacities. No pleural effusion or pneumothorax is seen. No a cute osseous abnormality identified. Previous cervical spine surgical changes are partially imaged. Compression deformity of T12 again noted. Old right-sided rib fractures noted. Since the prior gianfranco dy, there has been no significant interval change. IMPRESSION: Left greater than right basilar reticulonodular opacities which could be due to small airways infecti on/inflammation or chronic interstitial change.
[2018-10-02] MEDS: LANTUS SUBCUT SCH (20:33)
[2018-10-02] MEDS: PERCOCET 7.5-325 PO PRN (20:46)
[2018-10-02] MEDS ORDERED: LOVENOX SUBCUT SCH (21:00)
[2018-10-03] MEDS: SYNTHROID PO SCH (06:39)
[2018-10-03] MEDS: LASIX TAB PO SCH (06:39)
[2018-10-03] MEDS: HUMULIN R SUBCUT PRN ×2 (06:40→16:48)
[2018-10-03] MEDS: COZAAR PO SCH (08:08)
[2018-10-03] MEDS: ASPIRIN CHEWABLE PO SCH (08:08)
[2018-10-03] MEDS: MAG-OX PO SCH (08:09)
[2018-10-03] MEDS: PLAVIX PO SCH (08:09)
[2018-10-03] MEDS: NEURONTIN PO SCH ×2 (08:09→20:41)
[2018-10-03] MEDS: IMDUR PO SCH ×2 (08:09→14:04)
[2018-10-03] MEDS: PERCOCET 7.5-325 PO PRN (20:41)
[2018-10-03] MEDS: LANTUS SUBCUT SCH (20:42)
[2018-10-04] MEDS: SYNTHROID PO SCH (06:11)
[2018-10-04] MEDS: LASIX TAB PO SCH (06:11)
[2018-10-04 06:12] VITALS: BP 129/63; TEMP 98
[2018-10-04] MEDS: HUMULIN R SUBCUT PRN (06:12)
[2018-10-04] MEDS: IMDUR PO SCH (08:47)
[2018-10-04] MEDS: COZAAR PO SCH (08:47)
[2018-10-04] MEDS: ASPIRIN CHEWABLE PO SCH (08:47)
[2018-10-04] MEDS: MAG-OX PO SCH (08:48)
[2018-10-04] MEDS: PLAVIX PO SCH (08:48)
[2018-10-04] MEDS: NEURONTIN PO SCH (08:50)
--- NOTE | 2018-10-04 09:42 | PCM.PROG ---
Attending Provider: ATTENDING PROVIDER: Dr. WESLEY ABAD This patient is seen with Zoey Fragoso, Nurse Practitioner. DATE OF SERVICE: 10/04/18 SUBJECTIVE: This 88 year old WHITE/ M was hospitalized 10/01/18. The patient is resting comfortably. He has been up and about, eating well. HGB is slightly improved today. The decrease is likely due to hemodilution. REVIEW OF SYSTEMS: CONSTITUTIONAL: No night sweats. No fatigue, malaise, lethargy. No fever or chills. HEENT: Eyes: No visual changes. No eye pain. No eye discharge. ENT: No runny nose. No epistaxis. No sinus pain. No odynophagia. No congestion. RESPIRATORY: No cough, no congestion. No hemoptysis. No shortness of breath. CARDIOVASCULAR: No angina symptoms. No CHF symptoms. No atypical chest pain for CAD. No palpitations. No orthopnea.. GASTROINTESTINAL: No abdominal pain. No nausea or vomiting. No diarrhea or constipation. No hematemesis. No hematochezia. GENITOURINARY: No urgency. No frequency. No dysuria. No hematuria. No obstructive symptoms. No discharge. No pain. No significant abnormal bleeding. MUSCULOSKELETAL: No musculoskeletal pain; no joint swelling. NEUROLOGICAL: Awake, alert, oriented to time, place and person. No headache. No neck pain. No syncope. No seizures. No dizziness. PSYCHIATRIC: Not anxious. No depression. No suicidal thoughts. No homicidal thoughts. SKIN: No rash. No lesions. No wounds. ENDOCRINE: No unexplained weight loss. No weight gain. HEMATOLOGIC/LYMPHATIC: No anemia. No purpura. No petechiae. No prolonged or excessive bleeding. No palpable lymph nodes. PHYSICAL EXAMINATION: GENERAL: The patient is awake, alert and oriented, lying/sitting in bed in no distress. VITAL SIGNS: Temperature 98.0 F, Pulse 74, Respiratory Rate 14, BP 129/63, Pulse Ox 94% HEENT: Head normocephalic, atraumatic. Eyes: Extraocular muscles are intact. Pupils are equal, round and reactive to light and accommodation. Ears: No lesions. Nose appeared normal. Throat: No exudate or erythema. NECK: Supple. No JVD, no carotid bruit. No lymphadenopathy or thyromegaly. LUNGS: Diminished breath sounds. Clear to auscultation. Percussion note normal. Chest symmetrical. HEART: S1, S2, no S3. No murmurs. No cyanosis or clubbing. No ascites. Pulses: Dorsalis pedis and posterior tibial pulses +1 to +2 both sides. ABDOMEN: Soft. Non-tender. Bowel sounds active. No CVA tenderness. No mass felt. EXTREMITIES: No edema. Full range of motion of all extremities, equal. NEUROLOGIC: No focal deficit. Cranial nerves II through XII are grossly intact. No headache, no double vision or headache. SKIN: Not dry. Intact. Turgor-normal. LYMPHATIC: No palpable lymph nodes/no lymphedema. MUSCULOSKELETAL: Normal joints with no swelling. Muscle tone is normal. LAB REVIEW: 10/04/18 04:50 10/04/18 04:50 10/04/18 04:50: Sodium 125.5 L, Potassium 4.40, Chloride 95.8 L, Carbon Dioxide 23.9, Anion Gap 10.20, BUN 15.9, Creatinine 1.01, Estimated GFR (MDRD) 70.00, BUN/Creatinine Ratio 15.74, Glucose 194.3 H, Calcium 8.56, Total Bilirubin 0.48 , AST 21.4, ALT 11.5, Alkaline Phosphatase 63.9, Total Protein 6.01 L, Albumin 3.42 L, Globulin 2.59, Albumin/Globulin Ratio 1.32 10/04/18 04:50: WBC 6.41, RBC 3.19 L, Hgb 8.6 L, Hct 26.1 L, MCV 81.8, MCH 27.0 , MCHC 33.0, RDW Coeff of Michael 13.0, Plt Count 288, Immature Gran % (Auto) 0.2, Neut % (Auto) 67.6, Lymph % (Auto) 19.3, [place] % (Auto) 9.7, Eos % (Auto) 2.7, Baso % (Auto) 0.5, Immature Gran # (Auto) 0.0, Neut # (Auto) 4.3, Lymph # (Auto ) 1.2, [place] # (Auto) 0.6, Eos # (Auto) 0.2, Baso # (Auto) 0.0 ASSESSMENT: Please see below. 1. Hypoglycemia, resolved 2. Chest pain, non-cardiac 3. Diabetes Mellitus type 2- insulin dependant 4. Anemia PLAN: 1. Anemia profile 2. Anticipate discharge. 3. Continue sliding scale at home 4. Diet and nutrition discussed 5. Continue Plavix and Imdur due to coronary artery disease Plan and coordination of the patient's care discussed in the presence of Bi Technical Lead and nurse. SCRIBED BY: BILLIE PATEL Informal Waiter/Waitress scribed while in presence of service performed by Dr. Abad/Zoey Fragoso APRN on 10/04/18 ([id number])
--- NOTE | 2018-10-04 10:32 | CM.DICTOOL ---
ADMISSION: 10/01/18 20:00 DISCHARGE: OCTOBER 04, 2018 DATE OF SERVICE: 10/04/18 FINAL DIAGNOSIS HYPOGLYCEMIA CHEST PAIN, NON-CARDIAC ANEMIA HYPONATREMIA HISTORY OF: DM 2 HYPOTHYROIDISM S/P CHOLECYSTECTOMY DATE UNKNOWN S/P C-SPINE SURGERY IN 2008 S/P CATARACT SURGERY BOTH EYES DATE UNKNOWN HTN URINARY HESITANCY OSTEOARTHRITIS LAST VITALS Temp Pulse Resp BP Pulse Ox 98.0 F 74 14 129/63 94 L 10/04/18 06:00 10/04/18 06:00 10/04/18 06:00 10/04/18 06:00 10/04/18 06:00 TAKE THESE MEDICATIONS AT HOME Aspirin 81 mg PO DAILYWM [facility] Last Admin: 10/04/2018 at 08:48 Clopidogrel Bisulfate (Plavix) 75 mg PO DAILY [facility] Last Admin: 10/04/18 08:48 Dose: 75 mg Furosemide (Lasix Tab) 20 mg PO QDAC [facility] Last Admin: 10/04/18 06:11 Dose: 20 mg Gabapentin (Neurontin) 500 mg PO BEDTIME [facility] Last Admin: 10/03/18 20:41 Dose: 500 mg Gabapentin (Neurontin) 200 mg PO DAILY [facility] Last Admin: 10/04/18 08:50 Dose: 200 mg Insulin Glargine (Lantus) 10 unit SUBCUT BEDTIME [facility] Last Admin: 10/03/18 20:42 Dose: 10 unit Insulin Humalog per patient protocol TID SUBCUT PRN PRN Reason: Hyperglycemica Last Admin: 10/04/18 06:12 Dose: 10 unit Isosorbide Mononitrate (Imdur) 15 mg PO BID NITRATES [facility] Last Admin: 10/04/18 08:47 Dose: 15 mg Levothyroxine Sodium (Synthroid) 200 mcg PO QDAC [facility] Last Admin: 10/04/18 06:11 Dose: 200 mcg Losartan Potassium (Cozaar) 50 mg PO DAILY [facility] Last Admin: 10/04/18 08:47 Dose: 50 mg Magnesium Oxide (Mag-Ox) 400 mg PO DAILY [facility] Last Admin: 10/04/18 08:48 Dose: 400 mg Vitamin B12 IM MONTHLY Last Admin: Calcium Carbonate/Vitamin D3 (Calcium 600 + Vit D tablet) BID Last Admin: Oxycodone/Acetaminophen (Percocet 7.5-325) 1 tab PO Q8H PRN PRN Reason: mild to moderate pain Last Admin: 10/03/18 20:41 Dose: 1 tab ALLERGIES clindamycin HCl [From Cleocin] Adverse Reaction (Intermediate, Verified 17:11) DISCONTINUED MEDICATIONS None NEW PRESCRIPTIONS: PLAVIX 75 MG DAILY IMDUR 15 MG BID PLEASE NOTE PRESCRIPTIONS ARE GIVEN IN DUPLICATE FOR [facility](30 DAY) AND [facility](90 DAY) PER REQUEST OF PATIENT/FAMILY SMOKING: NOT APPLICABLE DISEASE SPECIFIC EDUCATION: NEW MEDICATIONS ACIVITY APPOINTMENT LAB REVIEW: 10/04/18 04:50 10/04/18 04:50 10/04/18 04:50: Sodium 125.5 L, Potassium 4.40, Chloride 95.8 L, Carbon Dioxide 23.9, Anion Gap 10.20, BUN 15.9, Creatinine 1.01, Estimated GFR (MDRD) 70.00, BUN/Creatinine Ratio 15.74, Glucose 194.3 H, Calcium 8.56, Total Bilirubin 0.48 , AST 21.4, ALT 11.5, Alkaline Phosphatase 63.9, Total Protein 6.01 L, Albumin 3.42 L, Globulin 2.59, Albumin/Globulin Ratio 1.32 10/04/18 04:50: WBC 6.41, RBC 3.19 L, Hgb 8.6 L, Hct 26.1 L, MCV 81.8, MCH 27.0 , MCHC 33.0, RDW Coeff of Michael 13.0, Plt Count 288, Immature Gran % (Auto) 0.2, Neut % (Auto) 67.6, Lymph % (Auto) 19.3, [place] % (Auto) 9.7, Eos % (Auto) 2.7, Baso % (Auto) 0.5, Immature Gran # (Auto) 0.0, Neut # (Auto) 4.3, Lymph # (Auto ) 1.2, [place] # (Auto) 0.6, Eos # (Auto) 0.2, Baso # (Auto) 0.0 PLAN: DISCHARGE HOME DIET: TOLERATED, CONSISTENT CARBOHYDRATES PLEASE INCLUDE A BEDTIME SNACK ACTIVITY: GRADUALLY RESUME TOLERATED CONTINUE TO CHECK BLOOD SUGARS FOUR TIMES DAILY AND ADMINISTER INSULIN COVERAGE ACCORDINGLY AN APPOINTMENT IS SCHEDULED WITH DR. ABAD/DENISE CAMACHO APRN ON 2018 AT 10 AM MR. LEDBETTER IS ALERT AND ORIENTED X 3. HE IS INDEPENDENT WITH ACTIVITIES OF DAILY LIVING AND LIVES AT HOME WITH HIS SPOUSE AND ADULT DAUGHTER. HE CHECKS HIS BLOOD SUGAR AT HOME AT LEAST FOUR TIMES DAILY. HE IS INDEPENDENT WITH TOILETING AND AMBULATION. MR. LEDBETTER HAS A GOOD APPETITE AND CONSUMES 75-100% OF ALL MEALS. MR. LEDBETTER DENIES PAIN OR SHORTNESS OF AIR. THE SKIN TURGOR IS GOOD, COLOR IS PALE. NO DECUBITUS ULCERS, RASHES OR OPEN WOUNDS ARE NOTED TO THE SKIN. BOTH DAUGHTERS ARE PRESENT THIS MORNING FOR ROUNDS AND ARE AGREEABLE TO DISCHARGE PLANS. WESLEY ABAD MD DENISE CAMACHO APRN
--- NOTE | 2018-10-04 14:44 | HP ---
DATE OF SERVICE: 10/01/18 HISTORY OF PRESENT ILLNESS: This is an 88-year-old white male who has experienced some intermittent chest pain at home off and on for the past two to three days then had hypoglycemic event with sugar into the 50's at home. He was brought to the emergency room confused, weak. PAST MEDICAL HISTORY: Diabetes Mellitus Type 2, insulin dependent Anemia History of hyponatremia Hypothyroidism Hypertension Urinary hesitancy Osteoarthritis PAST SURGICAL HISTORY: Cholecystectomy C-spine surgery Bilateral cataract surgery REVIEW OF SYSTEMS: CONSTITUTIONAL: Weakness. No night sweats. No fatigue, malaise, lethargy. No fever or chills. HEENT: Eyes: No visual changes. No eye pain. No eye discharge. ENT: No runny nose. No epistaxis. No sinus pain. No sore throat. No odynophagia. No ear pain. No congestion. RESPIRATORY: No cough, no congestion. No hemoptysis. No shortness of breath. CARDIOVASCULAR: Positive for chest pain. No angina symptoms. No CHF symptoms. No palpitations. No PND. No orthopnea. GASTROINTESTINAL: No abdominal pain. No nausea or vomiting. No diarrhea or constipation. No hematemesis. No hematochezia. GENITOURINARY: No urgency. No frequency. No dysuria. No hematuria. No obstructive symptoms. No discharge. No pain. No significant abnormal bleeding. MUSCULOSKELETAL: No musculoskeletal pain. No joint swelling. No arthritis. NEUROLOGICAL: No headache. No neck pain. No syncope. No seizures. No dizziness. PSYCHIATRIC: Not anxious. No depression. No suicidal thoughts. No homicidal thoughts. SKIN: No rash. No lesions. No wounds. ENDOCRINE: No unexplained weight loss. No weight gain. HEMATOLOGIC/LYMPHATIC: No anemia. No purpura. No petechiae. No prolonged or excessive bleeding. No palpable lymph nodes. PERSONAL/FAMILY/SOCIAL HISTORY: . Lives at home with spouse. He is a former smoker, quit several years ago. No alcohol use. No ilicit drug use. MEDICATIONS: (HOME) Synthroid 200 mcg p.o. daily Cyanocobalamin 1,000 mcg IM monthly Calcium Carbonate/Vitamin D3 one each p.o. b.i.d. Diphenhydramine 50 mg p.o.q .6h p.r.n. Gabapentin 500 mg p.o. bedtime Gabapentin 200 mg p.o. daily Oxycodone-Acetaminophen 7.5-325 one tab p.o. q.8h p.r.n. Furosemide 20 mg p.o. q.d a.c. Losartan (Cozaar) 50 mg p.o. daily Insulin 10 unit subcut bedtime Humalog see protocol SQ t.i.d. Aspirin 81 mg p.o. daily Magnesium 500 mg p.o. daily ALLERGIES: CLINDAMYCIN PHYSICAL EXAMINATION: HEENT: Head normocephalic, atraumatic. Eyes: Extraocular muscles are intact. Pupils are equal, round and reactive to light and accommodation. Ears: No lesions. Nose appeared normal. Throat: No exudate or erythema. NECK: Supple. No JVD, no carotid bruit. No lymphadenopathy or thyromegaly. LUNGS: Diminished breath sounds bilaterally. Clear to auscultation. Percussion note normal. Chest symmetrical. HEART: S1, S2, no S3. No murmurs. No cyanosis or clubbing. No ascites. Pulses: Dorsalis pedis and posterior tibial pulses +1 to +2 bilaterally. ABDOMEN: Soft. Nontender. Bowel sounds active. No CVA tenderness. No mass felt. EXTREMITIES: No edema. Full range of motion of all extremities, equal. NEUROLOGIC: Alert, oriented times three. No focal deficit. Cranial nerves II through XII are grossly intact. No headache, no double vision or headache. SKIN: Not dry. Intact. Turgor - normal. LYMPHATIC: No palpable lymph nodes/no lymphedema. MUSCULOSKELETAL: Normal joints with no swelling. Muscle tone is normal. Chest x-ray shows small airway infection/inflammation bilaterally. White count 7.99, hemoglobin 9.6, hematocrit 29.5, platelets 346, sodium 132, potassium 3.2 , BUN 18, creatinine 1.1. AST 27, ALT 15, troponin 0.2. CK-MB 3.5, CK-MB% 1.7. Sugar has increased. ASSESSMENT: 1. HYPOGLYCEMIA 2. CHEST PAIN 3. ANEMIA 4. DIABETES MELLITUS TYPE 2, INSULIN DEPENDENT PLAN: 1. Admit. 2. Routine telemetry orders. 3. CBC, CMP daily. 4. Continue home sliding scale for insulin. 5. D5 1/2 NS bolus at 500 cc. 6. Start Plavix 75 mg p.o. daily. 7. Continue all home medications. 8. Diabetic diet. 9. Oxygen at 1 to 2L. 10. EKG. 11. Continue cardiac enzymes. 12. Will follow closely. TIME SPENT: More than 70 minutes. MTDD
--- NOTE | 2018-10-05 11:17 | ECHO2D ---
Date of Exam: 10/02/18 Ordering Physician: DR. WESLEY ABAD Room # : 115 Reason for Echo: HYPOGLYCEMIA, CHEST PAIN, ANGINA M-Mode Normal Adult Results LV Dimensions Normal Adult Results AoV Opening excursions >1.6 >1.6 LVEDD-base- 3.5-5.8 4.8 Ao root dimensions 2.0-3.7 4.1 LVESD-base- 3.1-4.6 L. Atrium dimensions 1.9-3.8 4.6 Post. Wall thickness 0.8-1.1 1.3 IV septum (thickness) 0.7-1.2 1.5 Post. Wall excursion 0.72-1.3 NORMAL Septal motion NORMAL Systolic motion R. Ventricular cavity 1.5-2.0 NORMAL LVEF 60% 57% Paradoxical septal wall motion NORMAL 2-D : 2-D M Mode Echocardiogram was performed using apical four chamber and left parasternal long and short axis views. Mitral, tricuspid and aortic valves appear to be normal. Hypokinetic left ventricle, normal cavity size. Enlarged Left atrial cavity size. Aortic root appears to be normal. There is no pericardial effusion. There is no thrombus noted in the left ventricular or left aortic cavity. No mitral valve prolapse noted. M-MODE: MV: CALCIFIC MITRAL VALVE ANNULUS AV: NORMAL TV: NORMAL PV: CHAMBER SIZE: ENLARGED LEFT ATRIAL CAVITY WALL MOTION: NORMAL PERICARDIUM: NORMAL INTERPRETATION: 1. LEFT VENTRICULAR HYPERTROPHY WITH ENLARGED LEFT ATRIAL CAVITY 2. NORMAL LEFT VENTRICULAR CONTRACTILITY 3. CALCIFIC MITRAL VALVE ANNULUS 4. MILDLY DILATED AORTIC ROOT MTDD
--- NOTE | 2018-10-09 12:53 | PN ---
DATE OF SERVICE: 10/01/18 SUBJECTIVE: 88 year old white male was hospitalized through the emergency room by Dr. Loya for chest pain. The patient also has shortness of breath. In the emergency room the patient was comfortable and wasn't having any chest pain. The patient had few episodes of chest pain times one week. He is kind of equivocal for coronary insufficiency. The patient and daughter were advised he was going to transferred for further workup. This patient has history of coronary artery disease but the patient declined. The patient wants DNR. He doesn't want to be transferred. The patient's Troponin is high but CK-MB is borderline. The patient's episode of chest was nearly 15 minutes earlier. 6-7 hours prior to coming to the emergency room. According to Dr. Loya the patient did not have any CHF symptoms or x-ray findings. PLAN: 1. Keep the patient 2. Telemetry 3. No further workup 4. Continue same medications; he is on Lovenox, Plavix and Aspirin CONDITION: Stable TIME SPENT: More than 30 minutes. Plan and coordination of the patient's care discussed in the presence of nurse. RONNELL
--- NOTE | 2018-10-09 13:22 | PN ---
DATE OF SERVICE: 10/02/18 SUBJECTIVE: The patient was seen and examined with the Nurse Practitioner. His condition is stable and he doesn't have any chest pain. The patient had hypoglycemic spells mixed with his angina type of symptoms. The patient doesn't want any surgery or any other invention in the way of stent or cardiac catheterization. He likes to be treated with medications. Daughter is in the room. DNR status has been discussed with him. Previous he didn't want any resuscitative efforts and at present time he said just do it one time. We will discuss about it later on. There are no symptoms of CHF. REVIEW OF SYSTEMS: CONSTITUTIONAL: No night sweats. No fatigue, malaise, lethargy. No fever or chills. HEENT: Eyes: No visual changes. No eye pain. No eye discharge. ENT: No runny nose. No epistaxis. No sinus pain. No sore throat. No odynophagia. No congestion. RESPIRATORY: No cough, no congestion. No hemoptysis. No shortness of breath. CARDIOVASCULAR: No angina symptoms. No CHF symptoms. No atypical chest pain for CAD. No palpitations. No orthopnea. GASTROINTESTINAL: No abdominal pain. No nausea or vomiting. No diarrhea or constipation. No hematemesis. No hematochezia. GENITOURINARY: No urgency. No frequency. No dysuria. No hematuria. No obstructive symptoms. No discharge. No pain. No significant abnormal bleeding. MUSCULOSKELETAL: No musculoskeletal pain; no joint swelling. NEUROLOGICAL: No headache. No neck pain. No syncope. No seizures. No dizziness. PSYCHIATRIC: Not anxious. No depression. No suicidal thoughts. No homicidal thoughts. SKIN: No rash. No lesions. No wounds. ENDOCRINE: No unexplained weight loss. No weight gain. HEMATOLOGIC/LYMPHATIC: No anemia. No purpura. No petechiae. No prolonged or excessive bleeding. No palpable lymph nodes. PHYSICAL EXAMINATION: HEENT: Head normocephalic, atraumatic. Eyes: Extraocular muscles are intact. Pupils are equal, round and reactive to light and accommodation. Ears: No lesions. Nose appeared normal. Throat: No exudate or erythema. NECK: Supple. No JVD, no carotid bruit. No lymphadenopathy or thyromegaly. LUNGS: Clear to auscultation. Percussion note normal. Chest symmetrical. HEART: S1, S2, no S3. No murmurs. No cyanosis or clubbing. No ascites. Pulses: Dorsalis pedis and posterior tibial pulses +1 to +2 both sides. ABDOMEN: Soft. Nontender. Bowel sounds active. No CVA tenderness. No mass felt. EXTREMITIES: No edema. Full range of motion of all extremities, equal. NEUROLOGIC: No focal deficit. Cranial nerves II through XII are grossly intact. No headache, no double vision or headache. SKIN: Not dry. Intact. Turgor - normal. LYMPHATIC: No palpable lymph nodes/no lymphedema. MUSCULOSKELETAL: Normal joints with no swelling. Muscle tone is normal. LABS: EKG shows right bundle branch block type of pattern. All three EKG's practically unchanged. Has RVH with LV with strain type of pattern. The patient' s Troponin was high but the CK-MB is practically negative. Difficult to decide whether the patient had small acute myocardial event likely the patient has coronary artery disease diffused from Type 1 Diabetes. Cardiovascular status is stable. PLAN: 1. We will do echocardiogram to evaluate LV function. 2. He is not a surgical candidate in my opinion. He declined any further evaluation by records management director. TIME SPENT: More than 30 minutes. Plan and coordination of the patient's care discussed in the presence of nurse. RONNELL
--- NOTE | 2018-10-09 13:33 | PN ---
DATE OF SERVICE: 10/03/18 SUBJECTIVE: 88 year old white male hospitalized with chest pain. The patient also has multiple medical problems like Type 1 diabetes, frequent hypoglycemia lately, hypertension, hypothyroidism. The patient's chest pain on further questioning looks like related musculoskeletal nature involving cervical spine and muscle spasms. His other problems at present time seems to be hgb 8.3, hct 25. There is no evidence of active GI bleed. The patient so far has no evidence of acute HI. His EKG right bundle branch unchanged. Cardiac markers are negative. CK-MB of 4.6 which is borderline high. REVIEW OF SYSTEMS: CONSTITUTIONAL: No night sweats. No fatigue, malaise, lethargy. No fever or chills. HEENT: Eyes: No visual changes. No eye pain. No eye discharge. ENT: No runny nose. No epistaxis. No sinus pain. No sore throat. No odynophagia. No congestion. RESPIRATORY: No cough, no congestion. No hemoptysis. No shortness of breath. CARDIOVASCULAR: No angina symptoms. No CHF symptoms. No atypical chest pain for CAD. No palpitations. No orthopnea. GASTROINTESTINAL: No abdominal pain. No nausea or vomiting. No diarrhea or constipation. No hematemesis. No hematochezia. GENITOURINARY: No urgency. No frequency. No dysuria. No hematuria. No obstructive symptoms. No discharge. No pain. No significant abnormal bleeding. MUSCULOSKELETAL: No musculoskeletal pain; no joint swelling. NEUROLOGICAL: No headache. No neck pain. No syncope. No seizures. No dizziness. PSYCHIATRIC: Not anxious. No depression. No suicidal thoughts. No homicidal thoughts. SKIN: No rash. No lesions. No wounds. ENDOCRINE: No unexplained weight loss. No weight gain. HEMATOLOGIC/LYMPHATIC: No anemia. No purpura. No petechiae. No prolonged or excessive bleeding. No palpable lymph nodes. PHYSICAL EXAMINATION: VITAL SIGNS: Temperature 97, pulse 86, respiratory rate 16, blood pressure 120/ 60 and pulse ox 95%. HEENT: Head normocephalic, atraumatic. Eyes: Extraocular muscles are intact. Pupils are equal, round and reactive to light and accommodation. Ears: No lesions. Nose appeared normal. Throat: No exudate or erythema. NECK: Supple. No JVD, no carotid bruit. No lymphadenopathy or thyromegaly. LUNGS: Clear to auscultation. Percussion note normal. Chest symmetrical. HEART: S1, S2, no S3. No murmurs. No cyanosis or clubbing. No ascites. Pulses: Dorsalis pedis and posterior tibial pulses +1 to +2 both sides. ABDOMEN: Soft. Nontender. Bowel sounds active. No CVA tenderness. No mass felt. EXTREMITIES: No edema. Full range of motion of all extremities, equal. NEUROLOGIC: No focal deficit. Cranial nerves II through XII are grossly intact. No headache, no double vision or headache. SKIN: Not dry. Intact. Turgor - normal. LYMPHATIC: No palpable lymph nodes/no lymphedema. MUSCULOSKELETAL: Normal joints with no swelling. Muscle tone is normal. ASSESSMENT: 1. Chest pain could be angina difficult to rule out but very likely now with further evaluation. Negative test for any acute HI. The patient is likely having muscle spasms and musculoskeletal pain involving his cervical spine and thoracic spine PLAN: 1. Continue Imdur which he is tolerating well. TIME SPENT: More than 30 minutes. Plan and coordination of the patient's care discussed in the presence of nurse. RONNELL
--- NOTE | 2018-10-09 13:40 | PN ---
DATE OF SERVICE: 10/04/18 SUBJECTIVE: The patient was seen and examined with Nurse Practitioner. The patient's condition is stable. He has been up and about on Imdur. Feeling better. After reviewing the charts and his labs, EKGS and history again and again it looks to me that patient probably very likely didn't have angina type of pain. He is high risk for coronary artery disease which is going to diffused. The patient is on Imdur doing better. Again, hypoglycemia has been discussed with the patient and advised not to go into hypoglycemic panic if possible. CONDITION: Stable. TIME SPENT: More than 30 minutes. Plan and coordination of the patient's care discussed in the presence of nurse. RONNELL
--- NOTE | 2018-10-11 14:54 | DS ---
DATE OF SERVICE: 10/04/18 FINAL DIAGNOSIS: 1. HYPOGLYCEMIA 2. CHEST PAIN, NONCARDIAC 3. ANEMIA 4. HYPONATREMIA 5. HISTORY OF DIABETES MELLITUS TYPE 2 6. HYPOTHYROIDISM 7. S/P CHOLECYSTECTOMY, DATE UNKNOWN 8. S/P C-SPINE SURGERY IN 2008 9. S/P CATARACT SURGERY BOTH EYES DATE UNKNOWN 10. HYPERTENSION 11. URINARY HESITANCY 12. OSTEOARTHRITIS LAST VITALS: Temperature 98.0, pulse 74, respiratory rate 14, BP 129/63, pulse ox 94L DISCHARGE INSTRUCTIONS: Followup appointment: A followup appointment has been scheduled with Dr. Jeffers/ Zoey Fragoso APRN on 10/09/18 at 10 a.m. MEDICATIONS AT DISCHARGE: Aspirin 81 mg p.o. daily with meal [facility] Clopidogrel 75 mg p.o. daily SHIN Furosemide 20 mg p.o. q.d a.c. SHIN Gabapentin 500 mg p.o. bedtime SHIN Gabapentin 200 mg p.o. daily [facility] Insulin (Lantus) 10 unit subcut bedtime [facility] Insulin Humalog per patient protocol t.i.d. subcut p.r.n. Isosorbide Mononitrate (Imdur) 15 mg p.o. b.i.d. nitrates [facility] Levothyroxine 200 mcg p.o. q.d a.c. SHIN Losartan 50 mg p.o. daily SHIN Magnesium Oxide 400 mg p.o. daily SHIN Vitamin B12 IM monthly Calcium Carbonate/Vitamin D3 b.i.d. Oxycodone/Acetaminophen one tab p.o. q.8h p.r.n. ALLERGIES: CLINDAMYCIN (FROM CLEOCIN) ADVERSE REACTION (INTERMEDIATE, VERIFIED 10/01/18 [id number]) DISCONTINUED MEDICATIONS: None NEW PRESCRIPTIONS: Plavix 75 mg daily Imdur 15 mg b.i.d. Please note prescriptions are given in duplicate for [facility] (30 day ) and [facility] (90 day) per request of patient's family DIET INSTRUCTIONS: As tolerated, consistent carbohydrates Please include a bedtime snack ACTIVITY: Gradually resume as tolerated. Continue to check sugars four times daily and administer insulin coverage accordingly. SMOKING: N/A DISEASE SPECIFIC EDUCATION: New medications Activity Appointment HOSPITAL COURSE: This is an 88-year-old white male who presented to the emergency room with hypoglycemia and had been experiencing intermittent chest pain off and on for the past two to three days. He had not been experiencing any shortness of breath or sweating. He has no cardiac history. He does have risk factors hypertension, diabetes mellitus Type 2. He was admitted, placed on Plavix 75 mg daily. EKG was normal. Troponin was slightly elevated however CK-MB was normal. All of his home medications were continued. He became alert and oriented after given Glucagon and fluid bolus. His hemoglobin was 9.6 on admission. He did become more anemic with hemoglobin of 8.3 on 10/03 however this is likely due to hemodilution due to IV fluid bolus for hypoglycemia. After fluids were stopped today his hemoglobin has increased on its own at 8.6. Echo was done. Cardiac enzymes were done. Chest pain has been concluded to be noncardiac more stemming from neck and shoulders and radiating down to chest. He has not experienced any chest pain since he has been in the hospital. He was given 1 cc of Decadron. Blood pressure has been within normal limits. His sugar has been within normal limits. It is thought that the hypoglycemic episode was due to him not eating. We did start him on Imdur 15 mg p.o. b.i.d. and his blood pressures remain stable. Again, Dr. Jeffers did an echo. You can see his report. We will discharge him today in stable condition. Again his hemoglobin has improved on its own. Vital signs are within normal limits. He will go home on the same sliding scale as before. He will go home on Imdur 15 b.i.d. as well as Plavix 75 daily and continue Aspirin. Will discharge him in stable condition to followup next week. TIME SPENT: More than 60 minutes. RONNELL
== END 2018-10-04 11:00 | disposition home or self-care (01) | DRG 281 ==
LOC: ED 17:05 → MEDSURG B 20:00
PROVIDERS: ADMIT Internal Medicine; ATTEND Internal Medicine
DX: I21.4 Non-ST elevation (NSTEMI) myocardial infarction (principal); E87.1 Hypo-osmolality and hyponatremia; M25.512 Pain in left shoulder; M25.511 Pain in right shoulder; E11.9 Type 2 diabetes mellitus without complications; E16.2 Hypoglycemia, unspecified; R07.89 Other chest pain; D64.9 Anemia, unspecified; E03.9 Hypothyroidism, unspecified; I10 Essential (primary) hypertension; R39.11 Hesitancy of micturition; M19.90 Unspecified osteoarthritis, unspecified site
CPT/HCPCS: 36415; 80053; 81001; 82150; 82550; 82553; 82962; 83605; 83690; 83735; 84436; 84443; 84484; 85025; 87040; 93005; 93010; 96361; 96374; 96376; 97802; 99223; 99232; 99239; 99284

== ENCOUNTER 2019-01-03 14:38 | Emergency (ER) ==
[2019-01-03 14:44] VITALS: BP 193/88; TEMP 98.4; BMI 22.3
--- NOTE | 2019-01-03 14:57 | ED.PDOC ---
General ED Provider: Dr. JEFF DOTSON Chief Complaint: Extremity Swelling/Pain Stated Complaint: Lt Leg Pain and swelling. Awakened from nap and noted swelling and burning pain in distal lt leg Time Seen by Physician: 14:40 Mode of Arrival: Wheelchair Information Source: Patient Exam Limitations: No limitations Primary Care Provider: WESLEY ABAD Nursing and Triage Documentation Reviewed and Agree: Yes Does patient meet sepsis criteria?: No System Inflammatory Response Syndrome: Not Applicable Sepsis Protocol: For patient's 13 years and over: Temp is 96.8 and below OR 101 and greater Pulse >90 BPM Resp >20/minute Acutely Altered Mental Status Are patient's symptoms suggestive of a new infection, such as: -Pneumonia -Skin, Soft Tissue -Endocarditis -UTI -Bone, Joint Infection -Implantable Device -Acute Abdominal Infection -Wound Infection -Meningitis -Blood Stream Catheter Infection -Unknown Musculoskeletal Complaint Exam - Lower Extremity Complaint/Exam Location of Pain: Reports: Left, Leg Mechanism of Injury: Reports: No known trauma Onset/Duration: 2 hr Symptoms Are: Still present Onset of Pain: Reports: Immediate Initial Severity: Moderate Current Severity: Moderate Location: Reports: Discrete Character: Reports: Aching, Burning Alleviating: Reports: Rest Aggravating: Reports: Movement (and palpation ) Associated Signs and Symptoms: Reports: Swelling, Bruising (over side of apparrent hematoma) Related History: Denies: Similar episode DVT Risk Factors: Reports: Prior DVT Related Surgical History: Reports: None Lower Extremity Findings: Present: Swelling NV Bundle Intact Distal to Injury: No Oliver's Sign Present: No Differential Diagnoses: Contusion, DVT, Phlebitis Review of Systems - Review Of Systems Constitutional: Reports: No symptoms Eyes: Reports: No symptoms Ears, Nose, Mouth, Throat: Reports: No symptoms Respiratory: Reports: No symptoms Cardiac: Reports: No symptoms GI: Reports: No symptoms : Reports: No symptoms Musculoskeletal: Reports: No symptoms Skin: Reports: No symptoms Neurological: Reports: No symptoms Endocrine: Reports: No symptoms Hematologic/Lymphatic: Reports: No symptoms All Other Systems: Reviewed and Negative Past Medical History - Past Medical History Previously Healthy: Yes Endocrine: Reports: DM 2, Hypothyroid Cardiovascular: Reports: None Respiratory: Reports: None Hematological: Reports: None Gastrointestinal: Reports: None Genitourinary: Reports: None Neuro/Psych: Reports: None Musculoskeletal: Reports: None Cancer: Reports: None - Surgical History General Surgical History: Reports: Cholecystectomy, Back Surgery (CERVICAL SPINE SURGERY X2) - Family History Family History: Reports: Unknown - Social History Smoking Status: Former smoker Hx Substance Use: No Alcohol Screening: None Physical Exam - Physical Exam Appearance: Well-appearing, No pain distress, Well-nourished, Thin Ill-appearing: Mild Pain Distress: Mild Eyes: ELIOT, EOMI, Conjunctiva clear ENT: Ears normal, Nose normal, Oropharynx normal Respiratory: Airway patent, Breath sounds clear, Breath sounds equal, Respirations nonlabored Cardiovascular: RRR, Pulses normal, No rub, No murmur GI/: Soft, Nontender, No masses, Bowel sounds normal, No Organomegaly Musculoskeletal: Normal strength, ROM intact, No edema (and hematoma distal 1/3 dorsal lat surface), No calf tenderness, Edema Skin: Warm, Dry, Normal color Neurological: Sensation intact, Motor intact, Reflexes intact, Cranial nerves intact, Alert, Oriented Psychiatric: Affect appropriate, Mood appropriate Critical Care Note - Critical Care Note Total Time (mins): 0 Course - Course Orders, Labs, Meds: Orders Category Date Time Status Ice Pack [ED APPLY ICE AFFECTED AREA] .ONCE EMERGENCY 01/03/19 15:01 Active ULTRASOUND VENOUS SCAN LT. LEG [U/S VENOUS SCAN LT LEG] RADS 01/03/19 14:59 Completed Stat Vital Signs: Temp Pulse Resp BP Pulse Ox 01/03/19 14:39 98.4 F 92 H 20 193/88 H 98 Departure - Departure Time of Disposition: 18:20 Disposition: HOME SELF-CARE Discharge Problem: Traumatic hematoma of left lower leg Instructions: Hematoma (ED) Condition: Good Pt referred to PMD for follow-up: Yes (prn) IPMP verified?: No Additional Instructions: Ice pack to area of swelling Attempt to avoid striking leg against firm object potentially causing injury Allergies/Adverse Reactions: Allergies clindamycin HCl [From Cleocin] Adverse Reaction (Intermediate, Verified 14:45) Home Medications: Ambulatory Orders Calcium Carbonate/Vitamin D3 [Calcium 600 + Vit D Tablet] 1 each PO BID Cyanocobalamin (Vitamin B-12) [Vitamin B-12] 1,000 mcg IM MONTHLY 03/30/13 Levothyroxine Sodium [Synthroid] 200 mcg PO DAILY 03/30/13 Diphenhydramine HCl [Benadryl] 50 mg PO Q6H PRN 12/22/16 Gabapentin 200 mg PO DAILY 12/22/16 Gabapentin 500 mg PO BEDTIME 12/22/16 Oxycodone-Acetaminophe 7.5-325 [Percocet 7.5-325] 1 tab PO Q8H PRN 12/22/16 Furosemide [Lasix Tab] 20 mg PO QDAC #90 tablet 08/16/18 Losartan Potassium [Cozaar] 50 mg PO DAILY #90 tablet 08/16/18 Aspirin 81 mg PO DAILY 10/01/18 Insulin Glargine,Hum.rec.anlog [Lantus] 10 unit SUBCUT BEDTIME 10/01/18 Insulin Lispro [Humalog] See Protocol SQ TID 10/01/18 Magnesium Oxide [Magnesium] 500 mg PO DAILY 10/01/18 Clopidogrel Bisulfate [Plavix] 75 mg PO DAILY #30 tablet 10/04/18 Isosorbide Mononitrate [Imdur] 15 mg PO BID #60 10/04/18 Disposition Discussed With: Patient, Family
--- NOTE | 2019-01-03 15:44 | US ---
EXAM: ULTRASOUND LOWER EXTREMITY VENOUS DOPPLER EXAM HISTORY: Leg pain. FINDINGS: Left lower extremity venous Doppler exam. Real time small-scale, Doppler spectral analysis and color-flow Doppler imaging performed. The veins targeted for evaluation include the common femo ral, greater saphenous, profundus, femoral, popliteal, peroneal, anterior tibial and posterior tibial . The evaluated veins demonstrated normal spontaneous flow and compression without evidence of thr ombosis. In a region labeled as left area of concern, there was a heterogeneous, partially anechoic collection measuring 3.9 x 2.2 x 3.2 cm which may represent a subcutaneous hematoma. Correlate clinically. Fu rther imaging as follow-up could include ultrasound for CT. IMPRESSION: 1. No venous thrombosis identified. 2. Region within the area of interest may represent hematoma.
== END 2019-01-03 16:55 | disposition home or self-care (01) ==
LOC: ED 14:38
DX: S80.12XA Contusion of left lower leg, initial encounter (principal); M79.605 Pain in left leg; M79.89 Other specified soft tissue disorders; Z86.718 Personal history of other venous thrombosis and embolism; Z79.01 Long term (current) use of anticoagulants
CPT/HCPCS: 99282

== ENCOUNTER 2019-01-31 11:18 | Emergency (ER) | payer OTHER ==
[2013-03-30 08:55] VITALS: TEMP 98
[2019-01-31 11:25] VITALS: BP 138/75; TEMP 98; BMI 24.5
[2019-01-31] MEDS ORDERED: LIDOCAINE HCL 1% SDV SUBCUT STA (12:02)
--- NOTE | 2019-01-31 12:19 | ED.PDOC ---
General ED Provider: Dr. MIRTA AYON Chief Complaint: Laceration Stated Complaint: laceration left forearm Time Seen by Physician: 11:30 (see photos before and after ) Mode of Arrival: Walk-In Information Source: Patient Exam Limitations: No limitations Primary Care Provider: WESLEY ABAD Nursing and Triage Documentation Reviewed and Agree: Yes Does patient meet sepsis criteria?: No System Inflammatory Response Syndrome: Not Applicable Sepsis Protocol: For patient's 13 years and over: Temp is 96.8 and below OR 101 and greater Pulse >90 BPM Resp >20/minute Acutely Altered Mental Status Are patient's symptoms suggestive of a new infection, such as: -Pneumonia -Skin, Soft Tissue -Endocarditis -UTI -Bone, Joint Infection -Implantable Device -Acute Abdominal Infection -Wound Infection -Meningitis -Blood Stream Catheter Infection -Unknown Skin Complaint Exam - Lac/Torso/Upper Ext. Complaint/Exam Location of Injury: Left, Forearm Mechanism of Injury: Laceration Onset/Duration: 1 hrago after he tripped and fell Symptoms Are: Still present Initial Severity: Mild Current Severity: Mild Aggravating: None Alleviating: None Differential Diagnoses: Closed Fracture, Laceration Review of Systems - Review Of Systems Constitutional: Reports: No symptoms Eyes: Reports: No symptoms Ears, Nose, Mouth, Throat: Reports: No symptoms Respiratory: Reports: No symptoms Cardiac: Reports: No symptoms GI: Reports: No symptoms : Reports: No symptoms Musculoskeletal: Reports: Joint pain (hand , wrist ) Skin: Reports: Other (laceration forearm see photos) Neurological: Reports: No symptoms Endocrine: Reports: No symptoms Hematologic/Lymphatic: Reports: No symptoms All Other Systems: Reviewed and Negative Past Medical History - Past Medical History Previously Healthy: Yes Endocrine: Reports: DM 2, Hypothyroid Cardiovascular: Reports: None Respiratory: Reports: None Hematological: Reports: None Gastrointestinal: Reports: None Genitourinary: Reports: None Neuro/Psych: Reports: None Musculoskeletal: Reports: None Cancer: Reports: None - Surgical History General Surgical History: Reports: Cholecystectomy, Back Surgery (CERVICAL SPINE SURGERY X2) - Family History Family History: Reports: Unknown - Social History Smoking Status: Former smoker Hx Substance Use: No Alcohol Screening: None - Immunizations Tetanus Shot up to Date: No Physical Exam - Physical Exam Appearance: Well-appearing, No pain distress, Well-nourished Eyes: ELIOT, EOMI, Conjunctiva clear ENT: Ears normal, Nose normal, Oropharynx normal Respiratory: Airway patent, Breath sounds clear, Breath sounds equal, Respirations nonlabored Cardiovascular: RRR, Pulses normal, No rub, No murmur GI/: Soft, Nontender, No masses, Bowel sounds normal, No Organomegaly Musculoskeletal: Normal strength, ROM intact, No edema, No calf tenderness Skin: Warm, Dry (laceration 4cm 4mm deep no f/b ) Neurological: Sensation intact, Motor intact, Reflexes intact, Cranial nerves intact, Alert, Oriented Psychiatric: Affect appropriate, Mood appropriate Procedures - Laceration/Wound Repair No standard instances Wound Description: Irregular Wound Length (cm): 5cm Wound Width: 1cm Wound Depth: 4mm Wound Explored: Clean Wound Irrigated: Yes Wound Prep: Saline, Hibiclens Anesthesia: Lidocaine (plain 2ml plain) Wound Debrided: Moderate Undermining: Moderate Wound Margins: Revised, [place]ilion border aligned, Flaps aligned Wound Repaired With: [place] Number of [place]: 30 Layer Closure?: No Deep Layer Suture Size and Type: 0 Sterile Dressing Applied?: Yes Splint Applied?: No Progress: please see photos before and after Critical Care Note - Critical Care Note Total Time (mins): 0 Course - Course Orders, Labs, Meds: Orders Category Date Time Status Lidocaine HCl/Pf [Lidocaine HCl 1% Sdv] MEDS 01/31/19 12:02 Stat 5 ml SUBCUT ONCE STA Medications Discontinued Medications Generic Name Dose Route Start Last Admin Trade Name Freq PRN Reason Stop Dose Admin Lidocaine HCl 5 ml 01/31/19 12:02 Lidocaine Hcl 1% Sdv SUBCUT 01/31/19 12:03 ONCE STA Vital Signs: Temp Pulse Resp BP Pulse Ox 01/31/19 11:19 98 F 101 H 20 138/75 96 Departure - Departure Time of Disposition: 12:20 Disposition: HOME SELF-CARE Discharge Problem: Laceration - injury Instructions: Laceration (ED) Condition: Good Pt referred to PMD for follow-up: Yes IPMP verified?: No Additional Instructions: Please call your Family Physician as soon as possible to schedule a follow-up appointment. Allergies/Adverse Reactions: Allergies clindamycin HCl [From Cleocin] Adverse Reaction (Intermediate, Verified 11:27) Home Medications: Ambulatory Orders Calcium Carbonate/Vitamin D3 [Calcium 600 + Vit D Tablet] 1 each PO BID Cyanocobalamin (Vitamin B-12) [Vitamin B-12] 1,000 mcg IM MONTHLY 03/30/13 Levothyroxine Sodium [Synthroid] 200 mcg PO DAILY 03/30/13 Diphenhydramine HCl [Benadryl] 50 mg PO Q6H PRN 12/22/16 Gabapentin 200 mg PO DAILY 12/22/16 Gabapentin 500 mg PO BEDTIME 12/22/16 Oxycodone-Acetaminophe 7.5-325 [Percocet 7.5-325] 1 tab PO Q8H PRN 12/22/16 Furosemide [Lasix Tab] 20 mg PO QDAC #90 tablet 08/16/18 Losartan Potassium [Cozaar] 50 mg PO DAILY #90 tablet 08/16/18 Aspirin 81 mg PO DAILY 10/01/18 Insulin Glargine,Hum.rec.anlog [Lantus] 10 unit SUBCUT BEDTIME 10/01/18 Insulin Lispro [Humalog] See Protocol SQ TID 10/01/18 Magnesium Oxide [Magnesium] 500 mg PO DAILY 10/01/18 Isosorbide Mononitrate [Imdur] 15 mg PO BID #60 10/04/18
[2019-01-31] MEDS ORDERED: TENIVAC IM ONE (12:23)
== END 2019-01-31 12:39 | disposition home or self-care (01) ==
LOC: ED 11:18
DX: S51.812A Laceration without foreign body of left forearm, initial encounter (principal); W01.0XXA Fall on same level from slipping, tripping and stumbling without subsequent striking against object, initial encounter
CPT/HCPCS: 90471; 90714; 99283

== ENCOUNTER 2019-02-07 12:41 | Inpatient (IN) | payer OTHER ==
--- NOTE | 2019-02-07 13:32 | CT ---
EXAM: CT of the chest without contrast History: Short of breath, cough. Comparison: Chest radiograph 10/02/2018, chest CT 02/05/2009 Technique: Multiplanar CT images through the thorax were obtained without the administration of IV c ontrast Findings: Heart size is upper limits of normal. Trace pericardial fluid. Coronary calcifications. The interventricular septum of the heart is visible suggesting anemia. No axillary lymphadenopathy. Calcified lymph nodes are seen within the mediastinum and hilar regions. There is interstitial jordon ma with interlobular septal thickening and small bilateral pleural effusions. No pneumothorax. Within the visualized upper abdomen, nonspecific bilateral perinephric stranding. Status post cholec ystectomy. Moderate to large hiatal hernia containing debris. Postsurgical changes of the cervical spine. Old fracture of the sternum. Chronic compression fracture at T12. Impression: 1. Interstitial pulmonary edema and small bilateral pleural effusions. 2. Coronary artery disease. 3. Anemia. 4. Hiatal hernia
[2019-02-07] MEDS ORDERED: SODIUM CHLORIDE 1,000 ML IV SCH (14:00)
--- NOTE | 2019-02-07 14:06 | ED.PDOC ---
General ED Provider: Dr. MIRTA AYON Chief Complaint: Respiratory Complaint Stated Complaint: short of air Time Seen by Physician: 12:47 Mode of Arrival: Walk-In Information Source: Patient, Family Exam Limitations: No limitations Primary Care Provider: WESLEY ABAD Nursing and Triage Documentation Reviewed and Agree: Yes Does patient meet sepsis criteria?: No If yes, has appropriate treatment been initiated?: No System Inflammatory Response Syndrome: Not Applicable Sepsis Protocol: For patient's 13 years and over: Temp is 96.8 and below OR 101 and greater Pulse >90 BPM Resp >20/minute Acutely Altered Mental Status Are patient's symptoms suggestive of a new infection, such as: -Pneumonia -Skin, Soft Tissue -Endocarditis -UTI -Bone, Joint Infection -Implantable Device -Acute Abdominal Infection -Wound Infection -Meningitis -Blood Stream Catheter Infection -Unknown Respiratory Complaint Exam - Respiratory Complaint/Exam Symptoms Are: Still present Timing: Constant Initial Severity: Mild Current Severity: Mild Location: Nose, Throat, Chest Character: Reports: Non-productive cough Aggravating: Reports: None Alleviating: Reports: None Associated Signs and Symptoms: Denies: Rapid breathing, Dyspnea, Fever, Chills, Chest pain, Pleuritic chest pain, Wheezing, Hemoptysis, Dizziness, Calf pain, Calf swelling, Edema, URI, Nasal congestion, Hoarseness, Sinus discomfort, Vomiting, Sore throat, Weight loss, Decreased oral intake, Increased thirst, Increased appetite, Increased urination Related History: Reports: Similar episode History of Healthcare-Acquired Pneumonia: No Related Surgical History: Reports: None Pulmonary Embolism Risk Factors: None Cardiac Risk Factors: Reports: Diabetes Pseudomonas Risk Factors: Reports: None Tuberculosis Risk Factors: Reports: None Status Asthmaticus Risk Factors: Reports: None Home Oxygen Use: No Recent Stress Test: No Recent Echo/LV Function: No Current Antibiotic Use: No Current Asthma Medication Use: No Respiratory Distress: None Inadequate Respiratory Effort: No Dysphagia Present: No Stridor Present: No JVD Present: No Diminished Breath Sounds: No Sinus Tenderness: None Grunting Respirations: No Kussmaul Respirations: No Differential Diagnoses: CHF, [place] Non-Traumatic Chest Pain Syncope: EKG Performed Review of Systems - Review Of Systems Constitutional: Reports: Malaise, Weakness Eyes: Reports: No symptoms Ears, Nose, Mouth, Throat: Reports: No symptoms Respiratory: Reports: Cough, Short of air Cardiac: Reports: No symptoms GI: Reports: No symptoms : Reports: No symptoms Musculoskeletal: Reports: No symptoms Skin: Reports: No symptoms Neurological: Reports: No symptoms Endocrine: Reports: No symptoms Hematologic/Lymphatic: Reports: No symptoms All Other Systems: Reviewed and Negative Past Medical History - Past Medical History Previously Healthy: Yes Endocrine: Reports: DM 2, Hypothyroid Cardiovascular: Reports: None Respiratory: Reports: None Hematological: Reports: None Gastrointestinal: Reports: None Genitourinary: Reports: None Neuro/Psych: Reports: None Musculoskeletal: Reports: None Cancer: Reports: None - Surgical History General Surgical History: Reports: Cholecystectomy, Back Surgery (CERVICAL SPINE SURGERY X2) - Family History Family History: Reports: Unknown - Social History Smoking Status: Former smoker Hx Substance Use: No Alcohol Screening: None - Immunizations Tetanus Shot up to Date: Yes Physical Exam - Physical Exam Appearance: Well-appearing, No pain distress, Well-nourished Eyes: ELIOT, EOMI, Conjunctiva clear ENT: Ears normal, Nose normal, Oropharynx normal Respiratory: Rhonchi Cardiovascular: RRR, Pulses normal, No rub, No murmur GI/: Soft, Nontender, No masses, Bowel sounds normal, No Organomegaly Musculoskeletal: Normal strength, ROM intact, No edema, No calf tenderness Skin: Warm, Dry, Normal color Neurological: Sensation intact, Motor intact, Reflexes intact, Cranial nerves intact, Alert, Oriented Psychiatric: Affect appropriate, Mood appropriate Interpretation - Radiology Interpretation Radiology Results: Positive (pleural effusion, pulmonary edema) Re-Evaluation - Re-Evaluation Time of Re-Evaluation: 14:09 Status: Unchanged Vital Signs Stable: Yes Pain Level: 0 Appearance: NAD Lungs: Clear Skin: Warm and Dry Neuro: Alert and Oriented X3 CV: RRR Additional Comments: family stated pt would like to be admitted to [facility] and not transfered Physician Notification - Case Discussed Physician Notified: pmd Time of Notification: 14:09 (admitt ) Critical Care Note - Critical Care Note Total Time (mins): 60 Course - Course Hematology/Chemistry: 02/07/19 13:00 02/07/19 13:00 Orders, Labs, Meds: Lab Review 02/07/19 02/07/19 02/07/19 12:50 13:00 13:00 WBC 7.88 RBC 2.66 L Hgb 6.3 L Hct 20.0 L MCV 75.2 L MCH 23.7 L MCHC 31.5 L RDW Coeff of Michael 15.2 H Plt Count 389 Immature Gran % (Auto) 0.4 Neut % (Auto) 76.4 Lymph % (Auto) 12.9 Rooks % (Auto) 9.1 Eos % (Auto) 0.9 Baso % (Auto) 0.3 Immature Gran # (Auto) 0.0 Neut # (Auto) 6.0 Lymph # (Auto) 1.0 Rooks # (Auto) 0.7 Eos # (Auto) 0.1 Baso # (Auto) 0.0 Puncture Site O2 Saturation ABG pH ABG pCO2 ABG pO2 ABG HCO3 ABG Total CO2 ABG Base Excess Ab Test FiO2 % Sodium 131.4 L Potassium 4.31 Chloride 98.7 Carbon Dioxide 25.2 Anion Gap 11.81 BUN 26.1 H Creatinine 1.48 H Estimated GFR (MDRD) 45.00 BUN/Creatinine Ratio 17.63 Glucose 68.3 L Lactic Acid Calcium 8.60 Total Bilirubin 0.46 AST 87.2 H ALT 18.3 Alkaline Phosphatase 70.1 Total Creatine Kinase 275.2 H CK-MB (CK-2) 6.290 H* CK-MB (CK-2) % 2.2800 Troponin I 0.954 H* Total Protein 6.33 Albumin 3.97 Globulin 2.36 Albumin/Globulin Ratio 1.68 Procalcitonin Influ A Molecular Assay Negative by naat Influ B Molecular Assay Negative by naat Blood Type 02/07/19 02/07/19 02/07/19 13:00 13:00 13:00 WBC RBC Hgb Hct MCV MCH MCHC RDW Coeff of Michael Plt Count Immature Gran % (Auto) Neut % (Auto) Lymph % (Auto) Rooks % (Auto) Eos % (Auto) Baso % (Auto) Immature Gran # (Auto) Neut # (Auto) Lymph # (Auto) Rooks # (Auto) Eos # (Auto) Baso # (Auto) Puncture Site R rad O2 Saturation 98.0 ABG pH 7.494 H ABG pCO2 28.8 L ABG pO2 86.0 ABG HCO3 22.1 ABG Total CO2 23 ABG Base Excess -1 Ab Test + FiO2 % 21.0 Sodium Potassium Chloride Carbon Dioxide Anion Gap BUN Creatinine Estimated GFR (MDRD) BUN/Creatinine Ratio Glucose Lactic Acid 0.60 L Calcium Total Bilirubin AST ALT Alkaline Phosphatase Total Creatine Kinase CK-MB (CK-2) CK-MB (CK-2) % Troponin I Total Protein Albumin Globulin Albumin/Globulin Ratio Procalcitonin < 0.05 Influ A Molecular Assay Influ B Molecular Assay Blood Type 02/07/19 13:00 WBC RBC Hgb Hct MCV MCH MCHC RDW Coeff of Michael Plt Count Immature Gran % (Auto) Neut % (Auto) Lymph % (Auto) Rooks % (Auto) Eos % (Auto) Baso % (Auto) Immature Gran # (Auto) Neut # (Auto) Lymph # (Auto) Rooks # (Auto) Eos # (Auto) Baso # (Auto) Puncture Site O2 Saturation ABG pH ABG pCO2 ABG pO2 ABG HCO3 ABG Total CO2 ABG Base Excess Ab Test FiO2 % Sodium Potassium Chloride Carbon Dioxide Anion Gap BUN Creatinine Estimated GFR (MDRD) BUN/Creatinine Ratio Glucose Lactic Acid Calcium Total Bilirubin AST ALT Alkaline Phosphatase Total Creatine Kinase CK-MB (CK-2) CK-MB (CK-2) % Troponin I Total Protein Albumin Globulin Albumin/Globulin Ratio Procalcitonin Influ A Molecular Assay Influ B Molecular Assay Blood Type A POSITIVE Orders Category Date Time Status ABG DRAW REQUEST Stat CARDIO 02/07/19 12:43 Completed EKG-(ED ONLY) Stat CARDIO 02/07/19 12:43 Completed EKG-(IP & OP ONLY) DAILY CARDIO 02/08/19 06:00 Ordered EKG-(IP & OP ONLY) DAILY CARDIO 02/09/19 06:00 Ordered EKG-(IP & OP ONLY) DAILY CARDIO 02/10/19 06:00 Ordered OXYGEN Routine CARDIO 02/07/19 14:00 Ordered ACTIVITY .Complete BR CARE 02/07/19 14:00 Ordered INTAKE & OUTPUT Q8HR CARE 02/07/19 14:00 Ordered ORDER H&H 1HR POST TRANSFUSION ONCE CARE 02/07/19 13:56 Ordered PRBC LEUKOREDUCED ONCE CARE 02/07/19 13:56 Ordered VITAL SIGNS Q4HR CARE 02/07/19 14:00 Ordered CARDIAC DIET DIETARY 02/07/19 Dinner Ordered ABG Stat LAB 02/07/19 13:00 Completed BLOOD CULTURE Stat LAB 02/07/19 12:55 Received CBC W/ AUTO DIFF DAILY@0600 LAB 02/08/19 06:00 Ordered CBC W/ AUTO DIFF DAILY@0600 LAB 02/09/19 06:00 Ordered CBC W/ AUTO DIFF Stat LAB 02/07/19 13:00 Completed COMPREHENSIVE METABOLIC PANEL DAILY@0600 LAB 02/08/19 06:00 Ordered COMPREHENSIVE METABOLIC PANEL DAILY@0600 LAB 02/09/19 06:00 Ordered COMPREHENSIVE METABOLIC PANEL Stat LAB 02/07/19 13:00 Completed CREATINE KINASE Q8H LAB 02/07/19 20:15 Ordered CREATINE KINASE Q8H LAB 02/08/19 04:15 Ordered CREATINE KINASE Stat LAB 02/07/19 13:00 Completed FLU A/B MOLECULAR Stat LAB 02/07/19 12:50 Completed LACTIC ACID Stat LAB 02/07/19 13:00 Completed PACKED CELLS Routine LAB 02/07/19 13:56 Ordered PROCALCITONIN Stat LAB 02/07/19 13:00 Completed PT WITH INR DAILY@0600 LAB 02/08/19 06:00 Ordered PT WITH INR DAILY@0600 LAB 02/09/19 06:00 Ordered TROPONIN I Q8H LAB 02/07/19 20:15 Ordered TROPONIN I Q8H LAB 02/08/19 04:15 Ordered TROPONIN I Stat LAB 02/07/19 13:00 Completed TYPE AND SCREEN Routine LAB 02/07/19 13:56 Ordered Furosemide [Lasix Tab] MEDS 02/08/19 06:30 Ordered 20 mg PO QDAC Gabapentin [Neurontin] MEDS 02/08/19 09:00 Ordered 200 mg PO DAILY Gabapentin [Neurontin] MEDS 02/07/19 21:00 Ordered 500 mg PO BEDTIME Isosorbide Mononitrate [Imdur] MEDS 02/07/19 21:00 Ordered 15 mg PO BID Levothyroxine Sodium [Synthroid] MEDS 02/08/19 09:00 Ordered 200 mcg PO DAILY Losartan Potassium [Cozaar] MEDS 02/08/19 09:00 Ordered 50 mg PO DAILY Magnesium Oxide [Magnesium] MEDS 02/08/19 09:00 Ordered 500 mg PO DAILY Oxycodone-Acetaminophe 7.5-325 [Percocet 7.5-325] MEDS 02/07/19 14:01 Ordered 1 tab PO Q8H PRN Sodium Chloride 0.9% [Sodium Chloride] 1,000 ml MEDS 02/07/19 14:00 Ordered IV 75 mls/hr CT CHEST W/O CONTRAST Stat RADS 02/07/19 12:44 Completed Medications Generic Name Dose Route Start Last Admin Trade Name Freq PRN Reason Stop Dose Admin Furosemide 20 mg 02/08/19 06:30 Lasix Tab PO QDAC SHIN Gabapentin 200 mg 02/08/19 09:00 Neurontin PO DAILY SHIN Gabapentin 500 mg 02/07/19 21:00 Neurontin PO BEDTIME SHIN Sodium Chloride 1,000 mls @ 75 mls/hr 02/07/19 14:00 Sodium Chloride IV .[id number] SHIN Isosorbide Mononitrate 15 mg 02/07/19 21:00 Imdur PO BID SHIN Non-Formulary Medication 200 mcg 02/08/19 09:00 Levothyroxine Sodium [Synthroid] PO DAILY SHIN Non-Formulary Medication 500 mg 02/08/19 09:00 Magnesium Oxide [Magnesium] PO DAILY SHIN Non-Formulary Medication 50 mg 02/08/19 09:00 Losartan Potassium [Cozaar] PO DAILY SHIN Oxycodone/Acetaminophen 1 tab 02/07/19 14:01 Percocet 7.5-325 PO Q8H PRN Analgesia Vital Signs: Temp Pulse Resp BP Pulse Ox 02/07/19 12:43 98.5 F 83 22 145/71 H 95 Departure - Departure Time of Disposition: 14:10 Disposition: ADMITTED INPATIENT Discharge Problem: Troponin level elevated CHF (congestive heart failure) Qualifiers: Heart failure type: unspecified Heart failure chronicity: unspecified Qualified Code(s): I50.9 - Heart failure, unspecified Anemia Qualifiers: Anemia type: unspecified type Qualified Code(s): D64.9 - Anemia, unspecified Instructions: Heart Failure (ED) Condition: Good Pt referred to PMD for follow-up: Yes IPMP verified?: No Allergies/Adverse Reactions: Allergies clindamycin HCl [From Cleocin] Adverse Reaction (Intermediate, Verified 11:27) Home Medications: Ambulatory Orders Calcium Carbonate/Vitamin D3 [Calcium 600 + Vit D Tablet] 1 each PO BID Cyanocobalamin (Vitamin B-12) [Vitamin B-12] 1,000 mcg IM MONTHLY 03/30/13 Levothyroxine Sodium [Synthroid] 200 mcg PO DAILY 03/30/13 Diphenhydramine HCl [Benadryl] 50 mg PO Q6H PRN 12/22/16 Gabapentin 200 mg PO DAILY 12/22/16 Gabapentin 500 mg PO BEDTIME 12/22/16 Oxycodone-Acetaminophe 7.5-325 [Percocet 7.5-325] 1 tab PO Q8H PRN 12/22/16 Furosemide [Lasix Tab] 20 mg PO QDAC #90 tablet 08/16/18 Losartan Potassium [Cozaar] 50 mg PO DAILY #90 tablet 08/16/18 Aspirin 81 mg PO DAILY 10/01/18 Insulin Glargine,Hum.rec.anlog [Lantus] 10 unit SUBCUT BEDTIME 10/01/18 Insulin Lispro [Humalog] See Protocol SQ TID 10/01/18 Magnesium Oxide [Magnesium] 500 mg PO DAILY 10/01/18 Isosorbide Mononitrate [Imdur] 15 mg PO BID #60 10/04/18
[2019-02-07] MEDS ORDERED: HUMULIN R SUBCUT STA (14:11)
[2019-02-07 16:26] VITALS: BMI 24.8
[2019-02-07] MEDS: NEURONTIN PO SCH ×2 (20:28)
[2019-02-07] MEDS: IMDUR PO SCH (20:29)
[2019-02-07] MEDS ORDERED: NEURONTIN PO SCH (21:00)
[2019-02-07] MEDS ORDERED: LASIX IVP STA (23:18)
[2019-02-07] MEDS ORDERED: MORPHINE 2 MG/ML SYRINGE IVP STA (23:19)
[2019-02-08] MEDS: SYNTHROID PO SCH (05:44)
[2019-02-08] MEDS: LASIX TAB PO SCH (05:44)
[2019-02-08] MEDS: PERCOCET 7.5-325 PO PRN ×2 (07:30→20:35)
[2019-02-08] MEDS: HUMULIN R SUBCUT SCH ×3 (08:34→16:07)
--- NOTE | 2019-02-08 08:41 | PCM.PROG ---
Attending Provider: ATTENDING PROVIDER: Dr. WESLEY ABAD This patient is seen with Zoey Fragoso, Nurse Practitioner. DATE OF SERVICE: 02/08/19 SUBJECTIVE: This 88 year old WHITE/ M was hospitalized 02/07/19. The patient is resting comfortably. He had episode of shortness of breath last night. The patient is wearing oxygen. He does have some leg edema. REVIEW OF SYSTEMS: CONSTITUTIONAL: No night sweats. No fatigue, malaise, lethargy. No fever or chills. Weakness. HEENT: Eyes: No visual changes. No eye pain. No eye discharge. ENT: No runny nose. No epistaxis. No sinus pain. No odynophagia. No congestion. RESPIRATORY: No cough, no congestion. No hemoptysis. Shortness of breath. CARDIOVASCULAR: No angina symptoms. No CHF symptoms. No atypical chest pain for CAD. No palpitations. No orthopnea.. GASTROINTESTINAL: No abdominal pain. No nausea or vomiting. No diarrhea or constipation. No hematemesis. No hematochezia. GENITOURINARY: No urgency. No frequency. No dysuria. No hematuria. No obstructive symptoms. No discharge. No pain. No significant abnormal bleeding. MUSCULOSKELETAL: No musculoskeletal pain; no joint swelling. NEUROLOGICAL: Awake, alert, oriented to time, place and person. No headache. No neck pain. No syncope. No seizures. No dizziness. PSYCHIATRIC: Not anxious. No depression. No suicidal thoughts. No homicidal thoughts. SKIN: No rash. No lesions. No wounds. ENDOCRINE: No unexplained weight loss. No weight gain. HEMATOLOGIC/LYMPHATIC: No anemia. No purpura. No petechiae. No prolonged or excessive bleeding. No palpable lymph nodes. PHYSICAL EXAMINATION: GENERAL: The patient is awake, alert and oriented, lying in bed in no distress. VITAL SIGNS: Temperature 98.3 F, Pulse 91, Respiratory Rate 18, BP 140/73, Pulse Ox 93% HEENT: Head normocephalic, atraumatic. Eyes: Extraocular muscles are intact. Pupils are equal, round and reactive to light and accommodation. Ears: No lesions. Nose appeared normal. Throat: No exudate or erythema. NECK: Supple. No JVD, no carotid bruit. No lymphadenopathy or thyromegaly. LUNGS: Diminished breath sounds. Clear to auscultation. Percussion note normal. Chest symmetrical. HEART: S1, S2, no S3. No murmurs. No cyanosis or clubbing. No ascites. Pulses: Dorsalis pedis and posterior tibial pulses +1 to +2 both sides. ABDOMEN: Soft. Non-tender. Bowel sounds active. No CVA tenderness. No mass felt. EXTREMITIES: +1 bilateral leg edema. Full range of motion of all extremities, equal. NEUROLOGIC: No focal deficit. Cranial nerves II through XII are grossly intact. No headache, no double vision or headache. SKIN: Not dry. Intact. Turgor-normal. LYMPHATIC: No palpable lymph nodes/no lymphedema. MUSCULOSKELETAL: Normal joints with no swelling. Muscle tone is normal. LAB REVIEW: 02/08/19 04:20 02/08/19 04:20 02/08/19 04:20: Sodium 130.2 L, Potassium 4.41, Chloride 96.9 L, Carbon Dioxide 22.9, Anion Gap 14.81, BUN 24.4 H, Creatinine 1.25 H, Estimated GFR (MDRD) 54.00 , BUN/Creatinine Ratio 19.52, Glucose 179.1 H D, Calcium 8.42, Total Bilirubin 0.94, AST 39.5 D, ALT 17.4, Alkaline Phosphatase 85.6, Total Protein 6.09 L, Albumin 3.81, Globulin 2.28, Albumin/Globulin Ratio 1.67 02/08/19 04:20: PT 10.5, INR 1.05 02/08/19 04:20: WBC 11.19 H, RBC 3.36 L, Hgb 8.4 L, Hct 26.0 L, MCV 77.4 L, MCH 25.0 L, MCHC 32.3, RDW Coeff of Michael 15.4 H, Plt Count 349, Immature Gran % (Auto ) 0.4, Neut % (Auto) 87.0, Lymph % (Auto) 4.9 L, Mower % (Auto) 7.5, Eos % (Auto ) 0.0, Baso % (Auto) 0.2, Immature Gran # (Auto) 0.0, Neut # (Auto) 9.7 H, Lymph # (Auto) 0.6, Mower # (Auto) 0.8, Eos # (Auto) 0.0, Baso # (Auto) 0.0 02/08/19 04:20: Total Creatine Kinase 242.6 H, CK-MB (CK-2) 4.520 H, CK-MB (CK-2 ) % 1.8600, Troponin I 0.857 H* 02/07/19 23:25: Hgb 8.7 L, Hct 27.2 L D 02/07/19 23:05: Puncture Site Lrad, O2 Saturation 98.0, ABG pH 7.536 H*, ABG pCO2 23.5 L, ABG pO2 96.0, ABG HCO3 19.9 L, ABG Total CO2 21 L, ABG Base Excess -3 L, Ab Test +, O2 Delivery Device Bnc, Oxygen Liter Flow 2.00, FiO2 % 28.0 02/07/19 20:20: Total Creatine Kinase 278.0 H, CK-MB (CK-2) 5.670 H*, CK-MB (CK- 2) % 2.0300, Troponin I 0.838 H* 02/07/19 14:15: Blood Type A POSITIVE, Antibody Screen Negative, Crossmatch (AHG ) See Detail 02/07/19 13:00: Blood Type A POSITIVE 02/07/19 13:00: Puncture Site R rad, O2 Saturation 98.0, ABG pH 7.494 H, ABG pCO2 28.8 L, ABG pO2 86.0, ABG HCO3 22.1, ABG Total CO2 23, ABG Base Excess -1, Ab Test +, FiO2 % 21.0 02/07/19 13:00: Lactic Acid 0.60 L 02/07/19 13:00: Procalcitonin < 0.05 02/07/19 13:00: Sodium 131.4 L, Potassium 4.31, Chloride 98.7, Carbon Dioxide 25.2, Anion Gap 11.81, BUN 26.1 H, Creatinine 1.48 H, Estimated GFR (MDRD) 45.00 , BUN/Creatinine Ratio 17.63, Glucose 68.3 L, Calcium 8.60, Total Bilirubin 0.46 , AST 87.2 H, ALT 18.3, Alkaline Phosphatase 70.1, Total Creatine Kinase 275.2 H , CK-MB (CK-2) 6.290 H*, CK-MB (CK-2) % 2.2800, Troponin I 0.954 H*, Total Protein 6.33, Albumin 3.97, Globulin 2.36, Albumin/Globulin Ratio 1.68 02/07/19 13:00: WBC 7.88, RBC 2.66 L, Hgb 6.3 L, Hct 20.0 L, MCV 75.2 L, MCH 23.7 L, MCHC 31.5 L, RDW Coeff of Michael 15.2 H, Plt Count 389, Immature Gran % ( Auto) 0.4, Neut % (Auto) 76.4, Lymph % (Auto) 12.9, Mower % (Auto) 9.1, Eos % ( Auto) 0.9, Baso % (Auto) 0.3, Immature Gran # (Auto) 0.0, Neut # (Auto) 6.0, Lymph # (Auto) 1.0, Mower # (Auto) 0.7, Eos # (Auto) 0.1, Baso # (Auto) 0.0 02/07/19 12:50: Influ A Molecular Assay Negative by naat, Influ B Molecular Assay Negative by naat ASSESSMENT: Please see below. 1. Anemia 2. Acute CHF 3. Leg edema 4. Shortness of breath 5. Hyponatremia PLAN: 1. Given 1 more unit of packed red blood cells 2. Bilateral venous scan 3. Ultrasound of hematoma on left lower extremity. Plan and coordination of the patient's care discussed in the presence of Kitchen Mechanic and nurse. SCRIBED BY: BILLIE PATEL Np scribed while in presence of service performed by Dr. Abad/Zoey Fragoso APRN on 02/08/19 ([id number])
[2019-02-08] MEDS ORDERED: NON-FORMULARY MEDICATION (Levothyroxine Sodium [Synthroid] 200 MCG) PO SCH (09:00)
[2019-02-08] MEDS ORDERED: NON-FORMULARY MEDICATION (Magnesium Oxide [Magnesium] 500 MG) PO SCH (09:00)
[2019-02-08] MEDS ORDERED: NON-FORMULARY MEDICATION (Losartan Potassium [Cozaar] 50 MG) PO SCH (09:00)
[2019-02-08] MEDS: COZAAR PO SCH (09:04)
[2019-02-08] MEDS: PROTONIX PO SCH ×2 (09:05→18:08)
[2019-02-08] MEDS: NEURONTIN PO SCH ×3 (09:05→20:30)
[2019-02-08] MEDS: MAG-OX PO SCH (09:06)
[2019-02-08] MEDS: IMDUR PO SCH ×2 (09:06→20:30)
[2019-02-08] MEDS ORDERED: LASIX IVP STA (09:12)
[2019-02-08] MEDS ORDERED: LASIX IVP ONE (13:00)
--- NOTE | 2019-02-08 13:32 | PN ---
DATE OF SERVICE: 02/07/19 SUBJECTIVE: The patient was seen and examined in the Emergency Room. Dr. Gamboa was train reservation clerk for ER. The patient's daughters were present in the room. The patient is 88 year old with hgb of 6.5 and hct 19. REVIEW OF SYSTEMS: CONSTITUTIONAL: No night sweats. Fatigue. No fever or chills. Weak. HEENT: Eyes: No visual changes. No eye pain. No eye discharge. ENT: No runny nose. No epistaxis. No sinus pain. No sore throat. No odynophagia. No congestion. RESPIRATORY: No cough, no congestion. No hemoptysis.Shortness of breath with minimal exertion. CARDIOVASCULAR: No angina symptoms. No CHF symptoms. No atypical chest pain for CAD. No palpitations. No PND. No orthopnea. GASTROINTESTINAL: No abdominal pain. No nausea or vomiting. No diarrhea or constipation. No hematemesis. No hematochezia. GENITOURINARY: No urgency. No frequency. No dysuria. No hematuria. No obstructive symptoms. No discharge. No pain. No significant abnormal bleeding. MUSCULOSKELETAL: No musculoskeletal pain; no joint swelling. NEUROLOGICAL: No headache. No neck pain. No syncope. No seizures. No dizziness. PSYCHIATRIC: Not anxious. No depression. No suicidal thoughts. No homicidal thoughts. SKIN: No rash. No lesions. No wounds. ENDOCRINE: No unexplained weight loss. No weight gain. HEMATOLOGIC/LYMPHATIC: No anemia. No purpura. No petechiae. No prolonged or excessive bleeding. No palpable lymph nodes. PHYSICAL EXAMINATION: GENERAL: The patient is oriented to time, place and person. Looked pale. HEENT: Head normocephalic, atraumatic. Eyes: Extraocular muscles are intact. Pupils are equal, round and reactive to light and accommodation. Ears: No lesions. Nose appeared normal. Throat: No exudate or erythema. NECK: Supple. No JVD, no carotid bruit. No lymphadenopathy or thyromegaly. LUNGS:Decreased breath sounds but clear to auscultation. Percussion note normal. Chest symmetrical. HEART: S1, S2, no S3. No murmurs. No cyanosis or clubbing. No ascites. Pulses: Dorsalis pedis and posterior tibial pulses +1 to +2 bilaterally. ABDOMEN: Soft. Nontender. Bowel sounds active. No CVA tenderness. No mass felt. Denied of any black stool. No evidence of active GI bleed. EXTREMITIES: +2 pitting edema. Full range of motion of all extremities, equal. Hematoma on both lower extremity. NEUROLOGIC: No focal deficit. Cranial nerves II through XII are grossly intact. No headache, no double vision or headache. SKIN: Not dry. Intact. Turgor - normal. LYMPHATIC: No palpable lymph nodes/no lymphedema. MUSCULOSKELETAL: Normal joints with no swelling. Muscle tone is normal. LABS: EKG is unchanged, RBBB with ST-T wave changes could be ischemia. MB fraction is borderline with positive Troponin. The patient may have ischemic damage. Discussed the case with the two daughters and also the patient. They don't want patient to be moved to any other hospital. If it is taken care of at [place] we will try and cross match two units. So far the cardiovascular status is stable. ASSESSMENT: 1. Severe anemia with shortness of breath symptomatic 2. History of coronary artery disease PLAN: 1. Give him blood transfusions, 2 units for now 2. Protonix 3. Routine telemetry orders 4. Watch for fluid overload CONDITION: Stable. TIME SPENT: More than 30 minutes. Plan and coordination of the patient's care discussed in the presence of nurse. RONNELL
--- NOTE | 2019-02-08 13:39 | PN ---
DATE OF SERVICE: 02/08/19 SUBJECTIVE: The patient was seen and examined with Nurse Practitioner. The patient's daughter was present in the room. The patient is feeling better and his color looks somewhat better. Hgb is 8.4 and hct 26. Cardiovascular status stable. The patient got short of breath after the two units of packed red cell last night and was given 20mg of Lasix and 1mg Morphine Sulfate. He is feeling better with no symptoms of CHF. On admission the chest x-ray showed patient had pulmonary edema but the patient had no symptoms of CHF or obvious pulmonary edema at that time. PLAN: 1. Give one more unit of packed red cells 2. The patient's source of GI blood loss still not quite clear 3. Stool for occult blood 4. Continue Protonix 5. Of course he is off Plavix for last 4 weeks. 6. We will take him off Aspirin CARDIOVASCULAR STATUS: Stable PROGNOSIS: Guarded The patient is DNR. TIME SPENT: More than 30 minutes. Plan and coordination of the patient's care discussed in the presence of nurse. RONNELL
--- NOTE | 2019-02-08 14:23 | US ---
EXAM: Bilateral lower extremity venous Doppler History: Bilateral lower extremity edema. Technique: Multiple sonographic images through the bilateral lower extremities were obtained. Color duplex Doppler was used to interrogate vascular flow. Findings: The bilateral common femoral, greater saphenous, profunda, superficial femoral, popliteal, peroneal, posterior tibial and anterior tibial veins demonstrate spontaneous flow with normal compre ssion and normal augmentation. Impression: No sonographic evidence for deep venous thrombosis.
--- NOTE | 2019-02-08 14:32 | US ---
EXAM: Nonvascular ultrasound of the bilateral lower extremities History: Bilateral lower extremity palpable abnormalities. Technique: Multiple sonographic images through the bilateral lower extremities were obtained. Color duplex Doppler was used to interrogate vascular flow. Findings / impression: Within the subcutaneous soft tissues of the left lower extremity there are tw o complex collections of fluid demonstrating internal echoes and septations with surrounding edema an d the largest measuring 6.9 cm x 1.6 cm x 5.7 cm near the lower calf. 4.2 cm x 1.5 cm x 3.5 cm compl ex collection within the left thigh. 4.2 cm x 0.7 cm x 2.6 cm complex collection within the soft tis sues of the left lower calf. The fluid collections could represent hematomas or abscess. Correlate clinically.
--- NOTE | 2019-02-08 14:44 | DI ---
EXAM: Three views of the left fingers. History: Trauma of the left third digit. Findings: Moderate to severely displaced oblique fractures through the proximal phalanx of the third digit with some degree of shortening. Mildly displaced oblique fractures of the fourth and fifth me tacarpal shaft. No dislocation. Severe atherosclerotic vascular calcifications. Moderate to severe narrowing of the radiocarpal joint with ulnar abutment. Moderate to severe narrowing of the first c arpal metacarpal joint. Impression: Acute fractures of the proximal phalanx of the third digit and the fourth and fifth meta carpal shafts.
--- NOTE | 2019-02-08 15:49 | DI ---
EXAM: Three views of the left ankle. History: Left ankle trauma. Findings: Osteopenia. Atherosclerotic vascular calcifications. Diffuse subcutaneous edema. No acu te fracture or dislocation. Mild polyarticular joint space narrowing. Impression: No acute osseous abnormality
[2019-02-08] MEDS: ROCEPHIN 1 GM in SODIUM CHLORIDE 50 ML IV SCH (16:13)
--- NOTE | 2019-02-08 16:47 | DI ---
EXAM: Left femur, AP lateral views HISTORY: Fall, injury COMPARISON: None. FINDINGS: The alignment is normal. There is minimal narrowing left hip joint with small amount of o steophyte margin of the acetabulum No fracture is identified. IMPRESSION: No fracture or dislocation is identified. Mild osteoarthritic changes for age
--- NOTE | 2019-02-08 16:49 | DI ---
EXAM: Left foot, three views HISTORY: Fall, injury COMPARISON: None. FINDINGS: The alignment is normal. There is minimal narrowing the first MTP joint No fracture is i dentified. Arteriosclerotic calcification is seen. There is demineralization of the bones of the fo ot. Small plantar calcaneal spur. IMPRESSION: No fracture or dislocation is identified.
--- NOTE | 2019-02-08 16:53 | DI ---
EXAM: Left hand, three views HISTORY: Fall, injury COMPARISON: None. FINDINGS: There are multiple fractures. There is an oblique fracture through the proximal phalanx o f the third digit or middle finger. There is some displacement fracture without angulation. There also are acute fractures involving the shaft of the fourth and fifth metacarpals. There is angelina e deformity the distal radial metaphysis that may be due to prior injury. There is narrowing of the first and second carpal metacarpal joints as well as first metacarpal phalangeal joint. Impression Oblique minimally displaced fracture involving the mid diaphysis or shaft of the proximal phalanx of the middle finger left hand. There is a comminuted minimally displaced fracture of the proximal shaft of the fourth metacarpal. T here is also a oblique minimally displaced fracture of the proximal shaft of the fifth metacarpal lef t hand. Deformity of the distal radius suggesting old fracture as well as old fracture of the ulnar styloid.
--- NOTE | 2019-02-08 16:54 | DI ---
EXAM: LEFT FOREARM, 2 VIEWS HISTORY: Fall FINDINGS: There is deformity of the distal radius consistent with fracture although age indeterminat e. There is no clearly defined acute fracture line at this level. Correlate clinically for any prio r regional trauma. Moderately severe arthropathy of the radiocarpal articulations. IMPRESSION: Deformity of the distal radius without acute fracture identified. Arthritis.
[2019-02-08] MEDS: LANTUS SUBCUT SCH (20:31)
[2019-02-08] MEDS ORDERED: NEOSPORIN OINT 0.9 GM PACKET TP SCH (21:00)
[2019-02-09] MEDS: LASIX TAB PO SCH (05:46)
[2019-02-09] MEDS: PROTONIX PO SCH ×2 (05:46→16:51)
[2019-02-09] MEDS: SYNTHROID PO SCH (05:46)
[2019-02-09] MEDS: HUMULIN R SUBCUT SCH ×3 (06:04→15:28)
--- NOTE | 2019-02-09 08:36 | DI ---
EXAM: Single view of the pelvis and two views of bilateral hips. History: Pelvic trauma. Findings: No acute fracture or dislocation. Mild narrowing of bilateral hip joints. Pelvic calcifi cations are probably phleboliths. Atherosclerotic vascular calcifications. Impression: No acute osseous abnormality
--- NOTE | 2019-02-09 08:37 | DI ---
EXAM: Two views of the left tibia and fibula. History: Left lower leg trauma. Findings: No acute fracture or dislocation. Atherosclerotic vascular calcifications. Diffuse subcu taneous edema. Focal soft tissue swelling within the subcutaneous soft tissues of the left lateral l eg measuring 6.5 cm x 3.9 cm. Impression: 1. No acute osseous abnormality. 2. Atherosclerotic vascular disease. 3. Diffuse subcutaneous edema. 4. Focal soft tissue swelling could represent hematoma.
[2019-02-09] MEDS: NEURONTIN PO SCH ×3 (08:39→21:13)
[2019-02-09] MEDS: COZAAR PO SCH (08:40)
[2019-02-09] MEDS: IMDUR PO SCH ×2 (08:40→21:13)
[2019-02-09] MEDS: MAG-OX PO SCH (08:41)
[2019-02-09] MEDS: ROCEPHIN 1 GM in SODIUM CHLORIDE 50 ML IV SCH (08:41)
--- NOTE | 2019-02-09 08:44 | PCM.PROG ---
Attending Provider: ATTENDING PROVIDER: Dr. WESLEY ABAD This patient is seen with Zoey Fragoso, Nurse Practitioner. DATE OF SERVICE: 02/09/19 SUBJECTIVE: This 88 year old WHITE/ M was hospitalized 02/07/19. Hgb is stable at 9. His leg edema has improved. X-rays yesterday showed fracture of left finger and left wrist and appeared to be old. Incision on left forearm has purulent drainage, culture pending. REVIEW OF SYSTEMS: CONSTITUTIONAL: No night sweats. No fatigue, malaise, lethargy. No fever or chills. HEENT: Eyes: No visual changes. No eye pain. No eye discharge. ENT: No runny nose. No epistaxis. No sinus pain. No odynophagia. No congestion. RESPIRATORY: No cough, no congestion. No hemoptysis. No shortness of breath. CARDIOVASCULAR: No angina symptoms. No CHF symptoms. No atypical chest pain for CAD. No palpitations. No orthopnea.. GASTROINTESTINAL: No abdominal pain. No nausea or vomiting. No diarrhea or constipation. No hematemesis. No hematochezia. GENITOURINARY: No urgency. No frequency. No dysuria. No hematuria. No obstructive symptoms. No discharge. No pain. No significant abnormal bleeding. MUSCULOSKELETAL: No musculoskeletal pain; no joint swelling. Leg edema. NEUROLOGICAL: Awake, alert, oriented to time, place and person. No headache. No neck pain. No syncope. No seizures. No dizziness. PSYCHIATRIC: Not anxious. No depression. No suicidal thoughts. No homicidal thoughts. SKIN: No rash. No lesions. No wounds. ENDOCRINE: No unexplained weight loss. No weight gain. HEMATOLOGIC/LYMPHATIC: Anemia. No purpura. No petechiae. No prolonged or excessive bleeding. No palpable lymph nodes. PHYSICAL EXAMINATION: GENERAL: The patient is awake, alert and oriented, sitting in bed in no distress. VITAL SIGNS: Temperature 97.7 F, Pulse 76, Respiratory Rate 18, BP 145/75, Pulse Ox 92% HEENT: Head normocephalic, atraumatic. Eyes: Extraocular muscles are intact. Pupils are equal, round and reactive to light and accommodation. Ears: No lesions. Nose appeared normal. Throat: No exudate or erythema. NECK: Supple. No JVD, no carotid bruit. No lymphadenopathy or thyromegaly. LUNGS: Diminished breath sounds. Clear to auscultation. Percussion note normal. Chest symmetrical. HEART: S1, S2, no S3. No murmurs. No cyanosis or clubbing. No ascites. Pulses: Dorsalis pedis and posterior tibial pulses +1 to +2 both sides. ABDOMEN: Soft. Non-tender. Bowel sounds active. No CVA tenderness. No mass felt. EXTREMITIES: No edema. Full range of motion of all extremities, equal. Incision on left forearm, iván are intact. Localized erythema with scant purulent drainage. Hematoma left upper extremity and left lower extremity. NEUROLOGIC: No focal deficit. Cranial nerves II through XII are grossly intact. No headache, no double vision or headache. SKIN: Not dry. Intact. Turgor-normal. LYMPHATIC: No palpable lymph nodes/no lymphedema. MUSCULOSKELETAL: Normal joints with no swelling. Muscle tone is normal. LAB REVIEW: 02/09/19 05:00 02/09/19 05:00 02/09/19 05:00: Sodium 128.3 L, Potassium 4.18, Chloride 93.5 L, Carbon Dioxide 25.6, Anion Gap 13.38, BUN 23.3 H, Creatinine 1.24 H, Estimated GFR (MDRD) 55.00 , BUN/Creatinine Ratio 18.79, Glucose 173.0 H, Calcium 8.23 L, Total Bilirubin 0.84, AST 43.2, ALT 16.5, Alkaline Phosphatase 74.8, Total Protein 5.91 L, Albumin 3.71, Globulin 2.20, Albumin/Globulin Ratio 1.68 02/09/19 05:00: WBC 9.86, RBC 3.58 L, Hgb 9.0 L, Hct 28.3 L, MCV 79.1 L, MCH 25.1 L, MCHC 31.8, RDW Coeff of Michael 15.7 H, Plt Count 382, Immature Gran % (Auto ) 0.5, Neut % (Auto) 76.0, Lymph % (Auto) 10.2, Cross % (Auto) 11.1 H, Eos % ( Auto) 1.7, Baso % (Auto) 0.5, Immature Gran # (Auto) 0.1, Neut # (Auto) 7.5 H, Lymph # (Auto) 1.0, Cross # (Auto) 1.1, Eos # (Auto) 0.2, Baso # (Auto) 0.1 02/08/19 15:20: Hgb 9.8 L, Hct 31.0 L 02/07/19 14:15: Blood Type A POSITIVE, Antibody Screen Negative, Crossmatch (AHG ) See Detail ASSESSMENT: Please see below. 1. Anemia, improving 2. History of falls 3. Left arm laceration, infected 4. Fracture left hand and wrist, patient refuses orthopedic consult. PLAN: 1. Continue IV Rocephin 2. Keep left wrist in splint Plan and coordination of the patient's care discussed in the presence of Chart Calculator and nurse. SCRIBED BY: BILLIE PATEL, Labor Arbitrator scribed while in presence of service performed by Dr. Abad/Zoey Fragoso APRN on 02/09/19 ([id number])
--- NOTE | 2019-02-09 11:30 | PN ---
DATE OF SERVICE: 02/09/19 SUBJECTIVE: The patient was seen and examined with Nurse Practitioner. The patient has fracture of the metacarpal on the left hand two of them. He doesn't want anything to be done. The patient's is practically asymptomatic. The daughter was present in the room. She is agreeable to not have anything done. It is functional. As mentioned earlier that patient practically has no pain at all on his left hand. The patient is antibiotic for infection partly on the laceration the patient had nearly 9 days. The infection seems to be superficial. TIME SPENT: More than 30 minutes. Plan and coordination of the patient's care discussed in the presence of nurse. RONNELL
--- NOTE | 2019-02-09 13:26 | HP ---
DATE OF SERVICE: 02/07/19 HISTORY OF PRESENT ILLNESS: This is an 88-year-old white male who presented to the emergency room complaining of shortness of breath. He says he had been coughing. PAST MEDICAL HISTORY: Diabetes mellitus type 1 Hypothyroidism Anemia History of hyponatremia Hypothyroidism Hypotension Urinary hesitancy Osteoarthritis PAST SURGICAL HISTORY: Status post cholecystectomy C-spine surgery Bilateral cataracts REVIEW OF SYSTEMS: CONSTITUTIONAL: Fatigue. No fever. Pallor positive. HEENT: No sinus drainage, no sore throat. RESPIRATORY: Positive for cough. No congestion. CARDIOVASCULAR: Positive for shortness of breath. No atypical chest pain for coronary artery disease. No angina, CHF symptoms or palpitations. GASTROINTESTINAL: No melena or abdominal pain. No GERD. GENITOURINARY: No hematuria, no prostatism, no polyuria. 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 MUSCULOSKELETAL: No osteoarthritis pain, no joint swelling. HEMATOLOGIC: Anemia. ENDOCRINE: No weight loss, no weight gain. SKIN: Warm and dry, no rash. PSYCHIATRIC: Not anxious, no depression, no suicidal thoughts, no homicidal thoughts. SOCIAL HISTORY: Marital Status: . Lives with at home. Alcohol Usage: None. Tobacco Usage: Former smoker; has quit for several years. MEDICATIONS: Synthroid 200 mcg p.o. daily Vitamin B12 1,000 mg IM monthly Calcium Carbonate/Vitamin D3 one each p.o. b.i.d. Diphenhydramine 50 mg p.o. q.6h p.r.n. Gabapentin 500 mg p.o. bedtime Oxycodone-Acetaminophen one tab p.o. q.8hr p.r.n. Furosemide 20 mg p.o. q.d a.c. Cozaar 50 mg p.o. daily Insulin (Lantus) 10 units subcut bedtime Humalog see protocol SQ t.i.d. Aspirin 81 mg p.o. daily Magnesium 500 mg p.o. daily Imdur 15 mg p.o. b.i.d. ALLERGIES: CLINDAMYCIN HCI PHYSICAL EXAMINATION: V/S: Temperature 98.5, heart rate 83, respirations 22, BP 145/71, pulse ox 95%. GENERAL APPEARANCE: Alert and oriented times three. Pallor positive. HEENT: Normal. NECK: No JVP, no bruits. RESPIRATORY: Diminished breath sounds bilaterally. Mild respiratory distress. Lungs are clear. CARDIOVASCULAR: S1, S2, no S3, no murmurs. No cyanosis, clubbing. No ascites. GI/ABDOMEN: No tenderness. Bowel sounds are active. EXTREMITIES: +1 bilateral leg edema, left greater than right. Multiple hematoma's. A large palpable hematoma left lower extremity, hematoma on the left upper inner thigh. Pulses +1, equal. He does have a laceration to the outer aspect of his left arm with 30 iván intact. He does have some scant yellow purulent drainage. 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 X-RAYS/LAB/ABGS: Chest x-ray shows bilateral pleural effusions and mild pulmonary edema. White count 7.8, hemoglobin 6.3, hematocrit 20.0, platelets 389. Sodium 131, potassium 4.3, BUN 26, creatinine 1.4, glucose 68. Influenza A and B negative. CK 275, CK-MB 6.2, CK percentage 2.2, troponin 0.95. ABGs on room air pulse ox 98%, pH 7.4, pc02 28.8, p02 86, bicarb 22. Total c02 23. ASSESSMENT: 1. ACUTE ANEMIA 2. SHORTNESS OF BREATH 3. PULMONARY EDEMA 4. LEG EDEMA 5. STATUS POST FALL, LACERATION TO LEFT UPPER ARM PLAN: 1. We will admit. The patient and family are in agreement. He wishes to stay at [place], he does not want to be transferred to any other hospital. 2. Type, cross and administer 2 units of packed red blood cells. 3. Lasix 40 mg IV times one. 4. Keep legs elevated. 5. Wound culture on the left upper arm laceration. 6. Elevate the legs. 7. CBC, CMP daily. 8. H & H after transfusion. 9. Oxygen at 1 to 2L as needed. 10. Continue all home medications. 11. Continue with patient's sliding scale. 12. ABG on room air. 13. The patient is a DNR. 14. Will follow closely. TIME SPENT: More than 70 minutes. MTDD
[2019-02-09] MEDS: LANTUS SUBCUT SCH (21:16)
[2019-02-09] MEDS: PERCOCET 7.5-325 PO PRN (21:29)
[2019-02-10 05:19] VITALS: BP 151/72; TEMP 97.7
[2019-02-10] MEDS: SYNTHROID PO SCH (05:40)
[2019-02-10] MEDS: HUMULIN R SUBCUT SCH ×2 (05:40→11:19)
[2019-02-10] MEDS: LASIX TAB PO SCH (05:40)
[2019-02-10] MEDS: PROTONIX PO SCH (05:40)
[2019-02-10] MEDS: NEURONTIN PO SCH (08:41)
[2019-02-10] MEDS: COZAAR PO SCH (08:41)
[2019-02-10] MEDS: ROCEPHIN 1 GM in SODIUM CHLORIDE 50 ML IV SCH (08:41)
[2019-02-10] MEDS: IMDUR PO SCH (08:42)
[2019-02-10] MEDS: MAG-OX PO SCH (08:43)
--- NOTE | 2019-02-12 08:19 | DS ---
DATE OF SERVICE: 02/10/19 FINAL DIAGNOSIS: 1. Anemia with blood loss likely from fall laceration, could be GI ( the patient doesn't want any further workup in a way of colonoscopy or EGD) 2. Coronary artery disease 3. Diabetes Mellitus type 1 4. Anemia 5. Neuropathy 6. Generalized osteoarthritis 7. Laceration on the left forearm with infection 8. Hypothyroidism 9. Fracture of the metacarpal bones two of them on the left hand. The patient was explained about these findings and he doesn't want anything to be done. 10.Congestive heart failure, controlled 11.Ischemic cardiomyopathy endstage. DISCHARGE INSTRUCTIONS: Discharge home. Advised not to take Plavix and aspirin for now. Two iván are infected area on the laceration on the left forearm removed. The patient's wound is infected in parts but draining well, no puss pockets. It has healthy granulation tissue. The rest of the iván will be removed on Tuesday. Instruction to come back on Tuesday at 10:30. Wash the wound with soap and water twice a day, keep it dry and open. MEDICATIONS AT DISCHARGE: Levothyroxine Benadryl Gabapentin Oxycodone Lasix Losartan Insulin Isosorbide NEW PRESCRIPTIONS: Omnicef 300mg twice a day for 7 days DIET INSTRUCTIONS: Diabetic ACTIVITY: Gradually resume activity as tolerated. SMOKING: N/A DISEASE SPECIFIC EDUCATION: Followup Wound Antibiotic HOSPITAL COURSE: Ramez Mijares was hospitalized with severe anemia, hgb was 6.8 with hct 19. The patient had no active GI bleed likely blood loss could be from the laceration and the hematomas he had in the legs. GI blood loss was not ruled out. He had no evidence of active GI bleed. He was given three units of packed red cells because the patient was symptomatic with anemia with fatigue and weakness and ischemia type of findings on admission with positive Troponin and borderline CK. The patient's condition settled down and he never had any symptoms of CHF or CAD. EKG looked better with no signs of any ischemia. Cardiac markers were negative. The patient had earlier CHF noted on his chest x-ray but he was practically asymptomatic and was given Lasix iV. He had no symptoms of CHF throughout the stay. Lungs had a few crepitations at the bases otherwise normal with no JVP. Condition at the time of discharge is stable. Wound Care discussed with the patient's family. On discharge the patient's hgb 9.9 and hct 28. Surprising the patient had practically no pain at all, he is moving his fingers well with good engineering drafter on the left hand. The one fractured finger has support on it. The patient is DNR. The patient is to be seen in the office Tuesday at 10: 30. TIME SPENT: More than 60 minutes. RONNELL
--- NOTE | 2019-02-12 08:21 | PN ---
02/07/19: Level 5 02/08/19: Intermediate 02/09/19: Intermediate 02/10/19: D as in discharge MTDD
--- NOTE | 2019-02-12 08:24 | PN ---
DATE OF SERVICE: 02/10/19 SUBJECTIVE: Ramez Mijares was hospitalized with severe anemia, hgb was 6.8 with hct 19. The patient had no active GI bleed likely blood loss could be from the laceration and the hematomas he had in the legs. GI blood loss was not ruled out. He had no evidence of active GI bleed. He was given three units of packed red cells because the patient was symptomatic with anemia with fatigue and weakness and ischemia type of findings on admission with positive Troponin and borderline CK. The patient's condition settled down and he never had any symptoms of CHF or CAD. EKG looked better with no signs of any ischemia. Cardiac markers were negative. The patient had earlier CHF noted on his chest x-ray but he was practically asymptomatic and was given Lasix iV. He had no symptoms of CHF throughout the stay. Lungs had a few crepitations at the bases otherwise normal with no JVP. Condition at the time of discharge is stable. Wound Care discussed with the patient's family. On discharge the patient's hgb 9.9 and hct 28. Surprising the patient had practically no pain at all, he is moving his fingers well with good exhibition organiser on the left hand. The one fractured finger has support on it. The patient is DNR. The patient is to be seen in the office Tuesday at 10: 30. REVIEW OF SYSTEMS: CONSTITUTIONAL: No night sweats. No fatigue, malaise, lethargy. No fever or chills. HEENT: Eyes: No visual changes. No eye pain. No eye discharge. ENT: No runny nose. No epistaxis. No sinus pain. No sore throat. No odynophagia. No congestion. RESPIRATORY: No cough, no congestion. No hemoptysis. No shortness of breath. CARDIOVASCULAR: No angina symptoms. No CHF symptoms. No atypical chest pain for CAD. No palpitations. No PND. No orthopnea. GASTROINTESTINAL: No abdominal pain. No nausea or vomiting. No diarrhea or constipation. No hematemesis. No hematochezia. GENITOURINARY: No urgency. No frequency. No dysuria. No hematuria. No obstructive symptoms. No discharge. No pain. No significant abnormal bleeding. MUSCULOSKELETAL: No musculoskeletal pain; no joint swelling. NEUROLOGICAL: No headache. No neck pain. No syncope. No seizures. No dizziness. PSYCHIATRIC: Not anxious. No depression. No suicidal thoughts. No homicidal thoughts. SKIN: No rash. No lesions. No wounds. ENDOCRINE: No unexplained weight loss. No weight gain. HEMATOLOGIC/LYMPHATIC: No anemia. No purpura. No petechiae. No prolonged or excessive bleeding. No palpable lymph nodes. PHYSICAL EXAMINATION: VITAL SIGNS: Temperature 97.7, pulse 74, respiratory rate 20, blood pressure 150/72 and pulse ox 98%. HEENT: Head normocephalic, atraumatic. Eyes: Extraocular muscles are intact. Pupils are equal, round and reactive to light and accommodation. Ears: No lesions. Nose appeared normal. Throat: No exudate or erythema. NECK: Supple. No JVD, no carotid bruit. No lymphadenopathy or thyromegaly. LUNGS: Clear to auscultation. Percussion note normal. Chest symmetrical. HEART: S1, S2, no S3. No murmurs. No cyanosis or clubbing. No ascites. Pulses: Dorsalis pedis and posterior tibial pulses +1 to +2 bilaterally. ABDOMEN: Soft. Nontender. Bowel sounds active. No CVA tenderness. No mass felt. EXTREMITIES: No edema. Full range of motion of all extremities, equal. NEUROLOGIC: No focal deficit. Cranial nerves II through XII are grossly intact. No headache, no double vision or headache. SKIN: Not dry. Intact. Turgor - normal. LYMPHATIC: No palpable lymph nodes/no lymphedema. MUSCULOSKELETAL: Normal joints with no swelling. Muscle tone is normal. LABS: Hgb 9.1, hct 28, WBC 8,300 normal differential, creatinine 0.9, BUN 19, potassium 4.3. TIME SPENT: More than 30 minutes. Plan and coordination of the patient's care discussed in the presence of nurse. RONNELL
== END 2019-02-10 13:15 | disposition home or self-care (01) | DRG 292 ==
LOC: ED 12:41 → MEDSURG B 15:08
PROVIDERS: ADMIT Internal Medicine; ATTEND Internal Medicine
PROC: 30233N1 Transfusion of Nonautologous Red Blood Cells into Peripheral Vein, Percutaneous Approach (ICD-10-PCS; principal; 2019-02-07)
DX: I50.9 Heart failure, unspecified (principal); J81.1 Chronic pulmonary edema; E87.1 Hypo-osmolality and hyponatremia; D64.9 Anemia, unspecified; S51.812A Laceration without foreign body of left forearm, initial encounter; S62.309A Unspecified fracture of unspecified metacarpal bone, initial encounter for closed fracture; G62.9 Polyneuropathy, unspecified; M15.9 Polyosteoarthritis, unspecified; E03.9 Hypothyroidism, unspecified; E10.8 Type 1 diabetes mellitus with unspecified complications; I25.5 Ischemic cardiomyopathy; I25.10 Atherosclerotic heart disease of native coronary artery without angina pectoris; R05 Cough; R53.1 Weakness; R60.0 Localized edema
CPT/HCPCS: 36415; 36430; 80053; 82550; 82553; 82803; 82962; 83605; 83880; 84145; 84484; 85014; 85018; 85025; 85610; 86850; 86900; 86922; 87040; 87070; 87186; 87502; 93005; 93010; 99284

== ENCOUNTER 2019-02-20 12:28 | Outpatient (CLI) ==
[2013-03-30 08:55] VITALS: TEMP 98
--- NOTE | 2019-02-20 13:34 | DI ---
EXAM: Two views of the chest. History: Short of breath Comparison: Chest radiograph 10/02/2018 Findings: Heart is enlarged. Interstitial edema and small left pleural effusion. No pneumothorax. Atherosclerotic vascular calcifications. The visualized osseous structures unchanged with stable co mpression deformity within the lower thoracic spine. Postsurgical changes of the cervical spine. Impression: Cardiomegaly with interstitial edema and small left pleural effusion
--- NOTE | 2019-02-20 13:39 | DI ---
EXAM: Three views of the left foot. History: Left foot trauma. Findings: Mildly displaced fractures of the fourth and fifth metatarsal shafts. Osteopenia. No dis location. Atherosclerotic vascular calcifications. Small plantar spur. Diffuse subcutaneous edema. Impression: Fractures of the fourth and fifth metatarsal shafts.
--- NOTE | 2019-02-20 13:42 | DI ---
EXAM: Left wrist three-view HISTORY: Fall COMPARISON: CT 02/07/2019 TECHNIQUE: Three views left ribs were performed FINDINGS: Bone demineralization limits evaluation. Questionable cortical irregularity of the left s ixth and seventh anterolateral ribs, representing questionable nondisplaced fractures. No visible pn eumothorax. Cervical spinal fusion hardware. Interstitial changes with probable small left pleural effusion. IMPRESSION: 1. Questionable cortical irregularity of the left sixth and seventh anterolateral ribs, 2. Findings suggesting interstitial edema with probable small left pleural effusion
== END 2019-02-20 12:29 | disposition home or self-care (01) ==
LOC: RAD 12:28
PROVIDERS: ATTEND Internal Medicine
DX: M79.672 Pain in left foot (principal); R06.02 Shortness of breath; R07.89 Other chest pain; W19.XXXA Unspecified fall, initial encounter

== ENCOUNTER 2019-05-03 17:29 | Observation (INO) ==
--- NOTE | 2019-05-03 18:02 | ED.PDOC ---
General ED Provider: Dr. JEFF DOTSON Chief Complaint: Hypoglycemia Stated Complaint: Altered mental status. Was found collapsed on his patio this afternoon prior to ER arival by his daughter who is an employee at [employer]. Time Seen by Physician: 17:35 Mode of Arrival: Walk-In Information Source: Patient Exam Limitations: Clinical condition Primary Care Provider: WESLEY ABAD Referred to ED by: Other Nursing and Triage Documentation Reviewed and Agree: Yes Does patient meet sepsis criteria?: No System Inflammatory Response Syndrome: Not Applicable Sepsis Protocol: For patient's 13 years and over: Temp is 96.8 and below OR 101 and greater Pulse >90 BPM Resp >20/minute Acutely Altered Mental Status Are patient's symptoms suggestive of a new infection, such as: -Pneumonia -Skin, Soft Tissue -Endocarditis -UTI -Bone, Joint Infection -Implantable Device -Acute Abdominal Infection -Wound Infection -Meningitis -Blood Stream Catheter Infection -Unknown Neurological Complaint Exam - Altered Mental Status Complaint/Exam Current Mental Status: Unresponsiveness Onset: Sudden Symptoms Are: Still present Timing: Constant Initial Severity: Moderate Current Severity: Severe Eye Deviation Present: No Character: Reports: Confusion, Lethargy Aggravating: Reports: Environmental exposure, Unknown (Hypoglycemia) Associated Signs and Symptoms: Reports: Weakness, Headache Related History: Reports: Similar episode, Seizure Cardiac Risk Factors: Reports: Hypertension, Diabetes, Family history CVA Risk Factors: Reports: Diabetes, Hypertension, Valvular Heart Disease Related Surgical History: Reports: None Carotid Bruit Present: No Nystagmus Present: No Gag Reflex Present: Yes Meningeal Signs Positive: No Focal Weakness: Present: RUE, LUE Focal Sensory Loss: Present: RUE, LUE Gait: Unable [id number]: Abnormal right, Abnormal left Babinski Sign: Negative Right, Negative Left Signs of Injury: Present: Normal findings Thrombolytics Considered: No Differential Diagnoses: Hypoxia, Hypoglycemia, Post-Ictal, Sepsis Review of Systems - Review Of Systems Constitutional: Reports: Weakness Eyes: Reports: Vision change Ears, Nose, Mouth, Throat: Reports: No symptoms Respiratory: Reports: No symptoms Cardiac: Reports: No symptoms GI: Reports: No symptoms : Reports: No symptoms Musculoskeletal: Reports: Back pain, Joint pain, Muscle pain, Neck pain Skin: Reports: No symptoms Neurological: Reports: Cognitive dysfunction Endocrine: Reports: No symptoms, Intolerance to heat, Increased thirst All Other Systems: Reviewed and Negative Past Medical History - Past Medical History Previously Healthy: Yes Endocrine: Reports: DM 2, Hypothyroid Cardiovascular: Reports: None Respiratory: Reports: None Hematological: Reports: None Gastrointestinal: Reports: None Genitourinary: Reports: None Neuro/Psych: Reports: None Musculoskeletal: Reports: None Cancer: Reports: None - Surgical History General Surgical History: Reports: Cholecystectomy, Back Surgery (CERVICAL SPINE SURGERY X2) - Family History Family History: Reports: Unknown - Social History Smoking Status: Former smoker Hx Substance Use: No Alcohol Screening: None - Immunizations Tetanus Shot up to Date: No Physical Exam - Physical Exam Appearance: Ill-appearing, Thin Ill-appearing: Severe Pain Distress: Moderate Eyes: ELIOT, EOMI, Conjunctiva clear ENT: Ears normal, Nose normal, Oropharynx normal Neck: Nonsupple (in c collar) Respiratory: Airway patent, Breath sounds clear Cardiovascular: RRR, Pulses normal, No rub, No murmur GI/: Soft, Nontender, No masses, Bowel sounds normal, No Organomegaly Musculoskeletal: Normal strength, ROM intact Skin: Dry (cool) Neurological: Sensation intact, Motor intact, Cranial nerves intact, Disoriented Psychiatric: Affect appropriate, Anxious Interpretation - Radiology Interpretation Exam Interpreted: CT Scan (no acute changes, poss retrolisthesisC1-2 -suspect chronic -asymp) Radiology Interpretation By: Radiologist Exam Interpreted: CT Scan (Head -no acute changes) Physician Notification - Case Discussed Physician Notified: Dr Abad Time of Notification: 19:30 (Admit patient) Critical Care Note - Critical Care Note Total Time (mins): 60 Course - Course Hematology/Chemistry: 05/03/19 17:55 05/03/19 17:55 Orders, Labs, Meds: Lab Review 05/03/19 05/03/19 05/03/19 17:55 17:55 17:55 WBC 6.89 RBC 4.12 L Hgb 10.7 L Hct 33.4 L MCV 81.1 MCH 26.0 L MCHC 32.0 RDW Coeff of Michael 18.1 H Plt Count 306 Immature Gran % (Auto) 0.6 Neut % (Auto) 74.7 Lymph % (Auto) 14.8 [place] % (Auto) 7.8 Eos % (Auto) 1.5 Baso % (Auto) 0.6 Immature Gran # (Auto) 0.0 Neut # (Auto) 5.2 Lymph # (Auto) 1.0 [place] # (Auto) 0.5 Eos # (Auto) 0.1 Baso # (Auto) 0.0 Puncture Site O2 Saturation ABG pH ABG pCO2 ABG pO2 ABG HCO3 ABG Total CO2 ABG Base Excess O2 Delivery Device Oxygen Liter Flow FiO2 % Sodium 133.1 L Potassium 3.65 Chloride 97.2 L Carbon Dioxide 24.3 Anion Gap 15.25 BUN 16.2 Creatinine 1.04 Estimated GFR (MDRD) 67.00 BUN/Creatinine Ratio 15.57 Glucose 126.3 H Calcium 9.08 Total Bilirubin 0.46 AST 29.7 ALT 14.9 Alkaline Phosphatase 89.7 Total Creatine Kinase 221.2 H CK-MB (CK-2) 4.200 H CK-MB (CK-2) % 1.8900 Troponin I 0.023 Total Protein 7.12 Albumin 4.18 Globulin 2.94 Albumin/Globulin Ratio 1.42 05/03/19 18:13 WBC RBC Hgb Hct MCV MCH MCHC RDW Coeff of Michael Plt Count Immature Gran % (Auto) Neut % (Auto) Lymph % (Auto) [place] % (Auto) Eos % (Auto) Baso % (Auto) Immature Gran # (Auto) Neut # (Auto) Lymph # (Auto) [place] # (Auto) Eos # (Auto) Baso # (Auto) Puncture Site Lb O2 Saturation 99.0 ABG pH 7.404 ABG pCO2 37.9 ABG pO2 159.0 H ABG HCO3 23.7 ABG Total CO2 25 ABG Base Excess -1 O2 Delivery Device Nrb Oxygen Liter Flow 15.00 FiO2 % 100.0 Sodium Potassium Chloride Carbon Dioxide Anion Gap BUN Creatinine Estimated GFR (MDRD) BUN/Creatinine Ratio Glucose Calcium Total Bilirubin AST ALT Alkaline Phosphatase Total Creatine Kinase CK-MB (CK-2) CK-MB (CK-2) % Troponin I Total Protein Albumin Globulin Albumin/Globulin Ratio Orders Category Date Time Status ABG DRAW REQUEST Stat CARDIO 05/03/19 18:13 Completed EKG-(ED ONLY) Stat CARDIO 05/03/19 17:38 Completed IV [ED IV/MEDIPORT/POWERPORT] .ONCE EMERGENCY 05/03/19 17:38 Active ABG Stat LAB 05/03/19 18:13 Completed BLOOD CULTURE (ED ONLY) Stat LAB 05/03/19 17:55 Received CBC W/ AUTO DIFF Stat LAB 05/03/19 17:55 Completed CMP [COMPREHENSIVE METABOLIC PANEL] Stat LAB 05/03/19 17:55 Completed CPK [CREATINE KINASE] Stat LAB 05/03/19 17:55 Completed TROPONIN I Stat LAB 05/03/19 17:55 Completed 0.9 % Sodium Chloride [Saline Flush] MEDS 05/03/19 17:38 Active 1 syr IVF PRN PRN Sodium Chloride 0.9% [Sodium Chloride] 500 ml MEDS 05/03/19 18:[address] CERVICAL SPINE W/O CONTRAST Stat RADS 05/03/19 18:[address] HEAD W/O CONTRAST Stat RADS 05/03/19 18:03 Completed Medications Generic Name Dose Route Start Last Admin Trade Name Freq PRN Reason Stop Dose Admin Sodium Chloride 1 syr 05/03/19 17:38 Saline Flush IVF PRN PRN To flush IV Discontinued Medications Generic Name Dose Route Start Last Admin Trade Name Freq PRN Reason Stop Dose Admin Sodium Chloride 500 mls @ 500 mls/hr 05/03/19 18:03 05/03/19 18:44 Sodium Chloride IV 05/03/19 19:02 500 mls/hr BOLUS STA Administration Vital Signs: Temp Pulse Resp BP Pulse Ox 05/03/19 17:29 97.4 F L 81 12 144/64 H 100 Departure - Departure Time of Disposition: 19:30 Disposition: ADMITTED INPATIENT Discharge Problem: Hypoglycemia, Altered mental status, DM (diabetes mellitus) type II uncontrolled, periph vascular disorder, Retrolisthesis of vertebrae, Anemia Condition: Stable Pt referred to PMD for follow-up: Yes IPMP verified?: No Additional Instructions: Discussed with daughter cofirmed admission Allergies/Adverse Reactions: Allergies clindamycin HCl [From Cleocin] Adverse Reaction (Intermediate, Verified 17:37) clindamycin HCl Adverse Reaction (Intermediate, Uncoded 05/03/19 17:37) Home Medications: Ambulatory Orders Calcium Carbonate/Vitamin D3 [Calcium 600 + Vit D Tablet] 1 each PO BID Cyanocobalamin (Vitamin B-12) [Vitamin B-12] 1,000 mcg IM MONTHLY 03/30/13 Levothyroxine Sodium [Synthroid] 200 mcg PO DAILY 03/30/13 Diphenhydramine HCl [Benadryl] 50 mg PO Q6H PRN 12/22/16 Gabapentin 200 mg PO DAILY 12/22/16 Gabapentin 500 mg PO BEDTIME 12/22/16 Oxycodone-Acetaminophe 7.5-325 [Percocet 7.5-325] 1 tab PO Q8H PRN 12/22/16 Furosemide [Lasix Tab] 20 mg PO QDAC #90 tablet 08/16/18 Losartan Potassium [Cozaar] 50 mg PO DAILY #90 tablet 08/16/18 Insulin Glargine,Hum.rec.anlog [Lantus] 10 unit SUBCUT BEDTIME 10/01/18 Insulin Lispro [Humalog] See Protocol SQ TID 10/01/18 Magnesium Oxide [Magnesium] 500 mg PO DAILY 10/01/18 Isosorbide Mononitrate [Imdur] 15 mg PO BID #60 10/04/18 Disposition Discussed With: Patient
[2019-05-03] MEDS ORDERED: SODIUM CHLORIDE 500 ML IV STA (18:03)
--- NOTE | 2019-05-03 18:54 | CT ---
EXAM: CT of the head without contrast History: Altered mental status. Comparison: Head CT 08/14/2018 Technique: Multiplanar CT images through the head were obtained without the administration of IV con trast Findings: The visualized paranasal sinuses and mastoid air cells are clear in general. No acute lizette varial abnormalities. Intracranially there are atherosclerotic vascular calcifications. Stable atrophy. No midline shift and no hydrocephalus. No acute intracranial hemorrhage or abnormal extraaxial fluid collections. No change in the periventricular and subcortical white matter hypodensities. Impression: No acute intracranial process. Stable age related atrophy and chronic small vessel isch emic disease
--- NOTE | 2019-05-03 19:01 | CT ---
EXAM: CT of the cervical spine without contrast History: Head and neck trauma. Comparison: CT cervical spine 08/13/2015 Technique: Multiplanar CT images through the cervical spine were obtained without the administration of IV contrast. Findings: Atherosclerotic vascular calcifications. There is edema seen within the upper lungs with interlobular septal thickening. The visualized airway remains patent. Stable spinal hardware. No prevertebral soft tissue swelling. No acute fractures are seen. Osteope trung. 7 mm retrolisthesis involving the right C1-C2 articulation. Spinal alignment is otherwise with in normal limits. No change in the moderate to severe disc space narrowing at C4-5 and moderate disc space narrowing at C3-4. Bony spinal canal is not significantly compromised. Moderate to severe mu ltilevel bilateral bony neural foraminal narrowing secondary to uncovertebral and facet hypertrophy. Impression: 1. No acute fracture. 2. Retrolisthesis involving the right side of the C1-C2 and could be due to rotation from positionin g but cannot exclude ligamentous injury.
[2019-05-03] MEDS ORDERED: PERCOCET 7.5-325 PO PRN (20:46)
[2019-05-03] MEDS ORDERED: HUMALOG SUBCUT SCH (21:00)
[2019-05-03] MEDS ORDERED: NEURONTIN PO SCH (21:00)
[2019-05-03] MEDS ORDERED: SODIUM CHLORIDE 1,000 ML IV SCH (21:00)
[2019-05-03] MEDS ORDERED: IMDUR PO SCH (21:00)
[2019-05-03 22:06] VITALS: TEMP 97.8
[2019-05-03 22:13] VITALS: BMI 24.6
[2019-05-04 04:55] VITALS: BP 113/47
[2019-05-04] MEDS ORDERED: SYNTHROID PO SCH (06:30)
[2019-05-04] MEDS ORDERED: LASIX TAB PO SCH ×2 (06:30)
[2019-05-04] MEDS ORDERED: IMDUR PO SCH ×2 (08:00→09:30)
[2019-05-04] MEDS ORDERED: HUMALOG SUBCUT SCH (08:00)
[2019-05-04] MEDS ORDERED: NEURONTIN PO SCH ×2 (09:00→09:45)
[2019-05-04] MEDS ORDERED: COZAAR PO SCH (09:00)
[2019-05-04] MEDS ORDERED: CALCIUM 500 + VIT D 200 MG TABLET PO SCH ×2 (09:00→21:00)
[2019-05-04] MEDS ORDERED: MAG-OX PO SCH (09:00)
[2019-05-04] MEDS ORDERED: PERCOCET 7.5-325 PO PRN (10:00)
--- NOTE | 2019-05-04 10:12 | PCM.PROG ---
Attending Provider: ATTENDING PROVIDER: Dr. WESLEY ABAD DATE OF SERVICE: 05/04/19 - ADMISSION NOTE SUBJECTIVE: This 88 year old WHITE/ M was hospitalized 05/03/19 with altered mental status, hypoglycemia and had fallen. The patient had CT of cervical spine which did not show any acute findings like fractures. The patient's CT scan of brain was negative for any acute event. The patient's hypoglycemia is resolved. He is oriented to time, place and person. The daughter is in the room. PAST MEDICAL HISTORY: Diabetes mellitus Type 2 Hypothyroidism Anemia History of hyponatremia Hypothyroidism Hypotension Urinary hesitancy Osteoarthritis PAST SURGICAL HISTORY: Status post cholecystectomy C-spine surgery Bilateral cataracts REVIEW OF SYSTEMS: CONSTITUTIONAL: No night sweats. No fatigue, malaise, lethargy. No fever or chills. HEENT: Eyes: No visual changes. No eye pain. No eye discharge. ENT: No runny nose. No epistaxis. No sinus pain. No odynophagia. No congestion. RESPIRATORY: No cough, no congestion. No hemoptysis. No shortness of breath. CARDIOVASCULAR: No angina symptoms. No CHF symptoms. No atypical chest pain for CAD. No palpitations. No orthopnea.. GASTROINTESTINAL: No abdominal pain. No nausea or vomiting. No diarrhea or constipation. No hematemesis. No hematochezia. GENITOURINARY: No urgency. No frequency. No dysuria. No hematuria. No obstructive symptoms. No discharge. No pain. No significant abnormal bleeding. MUSCULOSKELETAL: No musculoskeletal pain; no joint swelling. NEUROLOGICAL: Awake, alert, oriented to time, place and person. No headache. No neck pain. No syncope. No seizures. No dizziness. PSYCHIATRIC: Not anxious. No depression. No suicidal thoughts. No homicidal thoughts. SKIN: No rash. No lesions. No wounds. ENDOCRINE: No unexplained weight loss. No weight gain. HEMATOLOGIC/LYMPHATIC: No anemia. No purpura. No petechiae. No prolonged or excessive bleeding. No palpable lymph nodes. MEDICATIONS: (HOME) Levothyroxine 200 mcg p.o. daily Cyanocobalamin 1,000 mcg IM monthly Calcium Carbonate/Vitamin D3 one each p.o. b.i.d. Diphenhydramine 50 mg p.o. q.6hr p.r.n. Gabapentin 500 mg p.o. bedtime Gabapentin 200 mg p.o. daily Oxycodone/Acetaminophen one tab p.o. q.8h p.r.n. Furosemide 20 mg p.o. q.d a.c. Losartan 50 mg p.o. daily Insulin Glargine 10 unit subcut bedtime Insulin Lispro Magnesium Oxide 500 mg p.o. daily Isosorbide 15 mg p.o. b.i.d. ALLERGIES: CLINDAMYCIN HCI REVIEW OF SYSTEMS: CONSTITUTIONAL: No night sweats. No fatigue, malaise, lethargy. No fever or chills. HEENT: Face is symmetrical. Eyes: No visual changes. No eye pain. No eye discharge. ENT: No runny nose. No epistaxis. No sinus pain. No odynophagia. No congestion. RESPIRATORY: No cough, no congestion. No hemoptysis. No shortness of breath. CARDIOVASCULAR: No angina symptoms. No CHF symptoms. No atypical chest pain for CAD. No palpitations. No orthopnea.. GASTROINTESTINAL: No abdominal pain. No nausea or vomiting. No diarrhea or constipation. No hematemesis. No hematochezia. GENITOURINARY: No urgency. No frequency. No dysuria. No hematuria. No obstructive symptoms. No discharge. No pain. No significant abnormal bleeding. MUSCULOSKELETAL: No musculoskeletal pain; no joint swelling. NEUROLOGICAL: Awake, alert, oriented to time, place and person. No headache. No neck pain. No syncope. No seizures. No dizziness. PSYCHIATRIC: Not anxious. No depression. No suicidal thoughts. No homicidal thoughts. SKIN: No rash. No lesions. No wounds. ENDOCRINE: No unexplained weight loss. No weight gain. HEMATOLOGIC/LYMPHATIC: No anemia. No purpura. No petechiae. No prolonged or excessive bleeding. No palpable lymph nodes. PHYSICAL EXAMINATION: GENERAL: The patient is awake, alert and oriented, lying/sitting in bed in no distress. VITAL SIGNS: Temperature 97.8 F, Pulse 68, Respiratory Rate 18, BP 113/47, Pulse Ox 98% HEENT: Head normocephalic, atraumatic. Eyes: Extraocular muscles are intact. Pupils are equal, round and reactive to light and accommodation. Ears: No lesions. Nose appeared normal. Throat: No exudate or erythema. NECK: Supple. No JVD, no carotid bruit. No lymphadenopathy or thyromegaly. LUNGS: Clear to auscultation. Percussion note normal. Chest symmetrical. HEART: S1, S2, no S3. No murmurs. No cyanosis or clubbing. No ascites. Pulses: Dorsalis pedis and posterior tibial pulses +1 to +2 both sides. ABDOMEN: Soft. Non-tender. Bowel sounds active. No CVA tenderness. No mass felt. EXTREMITIES: No edema. Full range of motion of all extremities, equal. NEUROLOGIC: No focal deficit. Cranial nerves II through XII are grossly intact. No headache, no double vision or headache. SKIN: Warm and dry. Intact. Turgor-normal. LYMPHATIC: No palpable lymph nodes/no lymphedema. MUSCULOSKELETAL: Normal joints with no swelling. Muscle tone is normal. LAB REVIEW: 05/04/19 04:45 05/04/19 04:45 05/04/19 04:45: Sodium 134.7, Potassium 4.45, Chloride 99.7, Carbon Dioxide 23.8 , Anion Gap 15.65, BUN 16.2, Creatinine 0.91, Estimated GFR (MDRD) 78.00, BUN/ Creatinine Ratio 17.80, Glucose 203.9 H D, Calcium 8.56, Total Bilirubin 0.48, AST 38.1, ALT 14.2, Alkaline Phosphatase 82.1, Total Protein 6.11 L, Albumin 3.42 L, Globulin 2.69, Albumin/Globulin Ratio 1.27 05/04/19 04:45: WBC 6.52, RBC 4.06 L, Hgb 10.4 L, Hct 34.0 L, MCV 83.7, MCH 25.6 L, MCHC 30.6 L, RDW Coeff of Michael 18.3 H, Plt Count 294, Immature Gran % ( Auto) 0.3, Neut % (Auto) 73.2, Lymph % (Auto) 14.7, [place] % (Auto) 10.4 H, Eos % (Auto) 0.8, Baso % (Auto) 0.6, Immature Gran # (Auto) 0.0, Neut # (Auto) 4.8, Lymph # (Auto) 1.0, [place] # (Auto) 0.7, Eos # (Auto) 0.1, Baso # (Auto) 0.0 05/03/19 18:13: Puncture Site Lb, O2 Saturation 99.0, ABG pH 7.404, ABG pCO2 37.9, ABG pO2 159.0 H, ABG HCO3 23.7, ABG Total CO2 25, ABG Base Excess -1, O2 Delivery Device Nrb, Oxygen Liter Flow 15.00, FiO2 % 100.0 05/03/19 17:55: Troponin I 0.023 05/03/19 17:55: Sodium 133.1 L, Potassium 3.65, Chloride 97.2 L, Carbon Dioxide 24.3, Anion Gap 15.25, BUN 16.2, Creatinine 1.04, Estimated GFR (MDRD) 67.00, BUN/Creatinine Ratio 15.57, Glucose 126.3 H, Calcium 9.08, Total Bilirubin 0.46 , AST 29.7, ALT 14.9, Alkaline Phosphatase 89.7, Total Creatine Kinase 221.2 H, CK-MB (CK-2) 4.200 H, CK-MB (CK-2) % 1.8900, Total Protein 7.12, Albumin 4.18, Globulin 2.94, Albumin/Globulin Ratio 1.42 05/03/19 17:55: WBC 6.89, RBC 4.12 L, Hgb 10.7 L, Hct 33.4 L, MCV 81.1, MCH 26.0 L, MCHC 32.0, RDW Coeff of Michael 18.1 H, Plt Count 306, Immature Gran % (Auto ) 0.6, Neut % (Auto) 74.7, Lymph % (Auto) 14.8, [place] % (Auto) 7.8, Eos % (Auto) 1.5, Baso % (Auto) 0.6, Immature Gran # (Auto) 0.0, Neut # (Auto) 5.2, Lymph # ( Auto) 1.0, [place] # (Auto) 0.5, Eos # (Auto) 0.1, Baso # (Auto) 0.0 ASSESSMENT: Please see below. 1. Hypoglycemia resolved. 2. Fall with no obvious injury. 3. Right arm laceration with 6 Steri-Strips with laceration, which seems to be without infection. 4. Hypothyroidism. 5. Diabetes mellitus. 6. Hypertension. 7. Dyslipidemia. 8. Coronary artery disease. 9. All the above are stable PLAN: 1. Anticipate d/c home today. 2. Resume insulin from home. 3. No evidence of GA with EKG, telemetry, cardiac markers all negative. Will discharge home. Strongly advised to eat regular meals. The patient is very stubborn, refuses to get off coverage that he provides himself with three shots , family is aware. Condition stable. Plan and coordination of the patient's care discussed in the presence of Program Development Specialist and nurse. CONDITION: Stable SCRIBED BY: DAHIANA WILSON, Laundry Housekeeping Aide scribed while in presence of service performed by Dr. WESLEY ABAD on 05/04/19 ([id number])
[2019-05-04] MEDS ORDERED: INSULIN REGULAR HUMAN SUBCUT PRN (10:15)
[2019-05-04] MEDS ORDERED: NON-FORMULARY MEDICATION (Losartan Potassium [Cozaar] 100 MG) PO SCH (10:30)
[2019-05-04] MEDS ORDERED: VITAMIN B-12 IM SCH (12:00)
[2019-05-05] MEDS ORDERED: LASIX TAB PO SCH (06:30)
[2019-05-05] MEDS ORDERED: MAG-OX PO SCH (09:00)
--- NOTE | 2019-06-19 11:44 | SSS ---
DATE OF SERVICE: 05/04/19 HISTORY OF PRESENT ILLNESS: 88-year-old white male hospitalized 05/03 with altered mental status, hypoglycemia and had fallen. He has a history of diabetes mellitus type 2, is insulin dependent. It has been well-controlled for some time. He was brought in accompanied by his family. Glucose was in the 30's. They gave him Glucagon by the time analytical research program manager had arrived. Blood sugar had improved to the 50's. REVIEW OF SYSTEMS: CONSTITUTIONAL: Positive for fatigue. No night sweats. No malaise, lethargy. No fever or chills. HEENT: Eyes: No visual changes. No eye pain. No eye discharge. ENT: No runny nose. No epistaxis. No sinus pain. No sore throat. No odynophagia. No ear pain. No congestion. RESPIRATORY: No cough, no congestion. No hemoptysis. No shortness of breath. CARDIOVASCULAR: No angina symptoms. No CHF symptoms. No atypical chest pain for CAD. No palpitations. No orthopnea. GASTROINTESTINAL: No abdominal pain. No nausea or vomiting. No diarrhea or constipation. No hematemesis. No hematochezia. GENITOURINARY: No dysuria. No hematuria. No obstructive symptoms. No discharge. No pain. No significant abnormal bleeding. MUSCULOSKELETAL: No musculoskeletal pain. No joint swelling. NEUROLOGICAL: Awake, alert, oriented to time, place and person. No headache. No neck pain. No syncope. No seizures. No dizziness. PSYCHIATRIC: Not anxious. No depression. No suicidal thoughts. No homicidal thoughts. SKIN: No rash. No lesions. No wounds. ENDOCRINE: No unexplained weight loss. No weight gain. HEMATOLOGIC/LYMPHATIC: No anemia. No purpura. No petechiae. No prolonged or excessive bleeding. No palpable lymph nodes. PAST MEDICAL HISTORY: Diabetes mellitus type 2, insulin dependent Hypothyroidism Anemia History of hyponatremia Hypothyroidism Hypotension Urinary hesitancy Osteoarthritis Coronary artery disease PAST SURGICAL HISTORY: Cholecystectomy C-spine surgery Bilateral cataracts PERSONAL/FAMILY HISTORY/SOCIAL HISTORY: , lives at home with . No alcohol use. No tobacco use, former smoker has been quit for several years. PHYSICAL EXAMINATION: GENERAL: At time of discharge, alert and oriented times three. HEENT: Head normocephalic, atraumatic. Eyes: Extraocular muscles are intact. Pupils are equal, round and reactive to light and accommodation. Ears: No lesions. Nose appeared normal. Throat: No exudate or erythema. NECK: Supple. No JVD, no carotid bruit. No lymphadenopathy or thyromegaly. LUNGS: Diminished breath sounds. Clear to auscultation. Percussion note normal. Chest symmetrical. HEART: S1, S2, no S3. No murmurs. No cyanosis or clubbing. No ascites. Pulses: Dorsalis pedis and posterior tibial pulses +1 to +2 bilaterally. ABDOMEN: Soft. Nontender. Bowel sounds active. No CVA tenderness. No mass felt. EXTREMITIES: No edema. Full range of motion of all extremities, equal. NEUROLOGIC: No focal deficit. Cranial nerves II through XII are grossly intact. No headache, no double vision or headache. SKIN: Not dry. Intact. Turgor - normal. LYMPHATIC: No palpable lymph nodes/no lymphedema. MUSCULOSKELETAL: Normal joints with no swelling. Muscle tone is normal. Old/present records reviewed Office records reviewed. ALLERGIES: CLINDAMYCIN MEDICATIONS: (HOME) Synthroid 200 mcg p.o. daily Cyanocobalamin 1,000 mcg IM monthly Calcium Carbonate/Vitamin D3 Diphenhydramine 50 mg p.o. q.6h p.r.n. Gabapentin 500 mg p.o. bedtime Gabapentin 200 mg p.o. daily Oxycodone/Acetaminophen 7.25-325 mg one tab p.o. q.8h p.r.n. Furosemide 20 mg p.o. q.d a.c. Insulin Glargine (Lantus) 10 unit subcut bedtime Magnesium Oxide 500 mg p.o. daily Imdur 15 mg p.o. b.i.d. Insulin Regular t.i.d. with meal p.r.n. Losartan 100 mg p.o. daily LABS/EKG'S/X-RAY/ECHO/AB05/03/19: WBC 6.89, RBC 4.12, Hgb 10.7, HCT 33.4, MCV 81.1, MCH 26.0, MCHC 32.0, RDW Coeff of Michael 18.1, Platelet 306. Head CT No acute intracranial process. Stable age-related atrophy and chronic small vessel ischemic disease. Cervical spine x-ray No acute fracture. Retrolisthesis involving the right side of the C1 -C2 and could be due to rotation from positioning but cannot exclude ligamentous injury. ABG 02 sat 99.0, pH 7.404, pc02 37.9, p02 159.0, HC03 23.7, total c02 25, base excess of -1. FI02 %100.0. 05/04/19: WBC 6.52, RBC 4.06, Hgb 10.4, Hct 34.0, platelet count 294. 08/11/21: Hemoglobin 10.4, hematocrit 34, white count 6.5, platelets 294. Sodium 134, potassium 4.4, BUN 16, creatinine 0.9, glucose 203. PROGRESS NOTES: See EMR. DIAGNOSES: 1. HYPOGLYCEMIA - RESOLVED. 2. FALL WITH NO OBVIOUS INJURY. 3. RIGHT ARM LACERATION WITH STERI-STRIPS IN PLACE, NO INFECTION. 4. DIABETES MELLITUS TYPE 2, INSULIN DEPENDENT. 5. HYPOTHYROIDISM. 6.. DIABETES MELLITUS. 7. HYPERTENSION. 8. DYSLIPIDEMIA. 9. CORONARY ARTERY DISEASE. PLAN: 1. Discharge home in stable condition. 2. Hypoglycemia and risks associated with insulin use all discussed. 3. Continue with sliding scale. 4. All cardiac markers are negative. 5. Strongly advised to eat regular meals. Will discharge in stable condition. TIME SPENT: More than 70 minutes. MTDD
== END 2019-05-04 14:00 | disposition home or self-care (01) ==
LOC: ED 17:29 → INTOOBSV 21:04 → UNDOADMOB 21:04 → MEDSURG B 21:04
PROVIDERS: ADMIT Internal Medicine; ATTEND Internal Medicine
DX: R41.0 Disorientation, unspecified; W18.30XA Fall on same level, unspecified, initial encounter; I25.10 Atherosclerotic heart disease of native coronary artery without angina pectoris; M54.2 Cervicalgia; R41.82 Altered mental status, unspecified; I73.9 Peripheral vascular disease, unspecified; Z79.4 Long term (current) use of insulin; S51.811A Laceration without foreign body of right forearm, initial encounter; E11.649 Type 2 diabetes mellitus with hypoglycemia without coma; Z91.81 History of falling; D64.9 Anemia, unspecified; E78.5 Hyperlipidemia, unspecified; R53.1 Weakness; I10 Essential (primary) hypertension; M54.9 Dorsalgia, unspecified; R51 Headache; R53.83 Other fatigue